=== PATIENT | male | born 1955 | race Caucasian/White ===

== ENCOUNTER 2017-05-22 08:37 | Emergency (ER) | payer OTHER ==
[2017-05-22] MEDS ORDERED: ONDANSETRON 4 MG/2 ML VIAL IVP STA (10:06)
[2017-05-22] MEDS ORDERED: HYDROmorphone 0.5 MG/0.5 ML SYRINGE IVP STA (10:06)
[2017-05-22] MEDS ORDERED: SODIUM CHLORIDE 0.9% 500 ML IV STA (10:06)
[2017-05-22] MEDS ORDERED: SODIUM CHLORIDE 0.9% 1,000 ML IV STA (10:06)
[2017-05-22 10:38] LABS: Basophils % (A) 1 %; Eosinophils # (A) 0.1 k/uL (0-0.7); Eosinophils % (A) 2 %; HCT 44.8 % (39.0-53.0); Lymphocytes # (A) 0.9 k/uL (1.0-4.8); Lymphocytes % (A) 16 %; MCH 29.9 pg (25.0-35.0); MCHC 33.5 g/dL (31.0-37.0); MCV 89.1 fL (80.0-100.0); Mean Platelet Volume 7.1; Monocytes # (A) 0.3 k/uL (0-1.0); Monocytes % (A) 5 %; Neutrophils # (A) 4.2 k/uL (1.3-7.7); Neutrophils % (A) 76 %; Platelet Count 204 k/uL (150-450); Poikilocytosis Slight; RBC 5.03 m/uL (4.30-5.90); WBC 5.5 k/uL (3.8-10.6)
--- NOTE | 2017-05-22 10:42 | CT ---
EXAMINATION TYPE: CT abdomen pelvis wo con DATE OF EXAM: 05/22/2017 COMPARISON: NONE INDICATION: Patient complains of left flank pain. DLP: 1074.1 mGycm, Automated exposure control for dose reduction was used. CONTRAST: None TECHNIQUE: Axial images were obtained from above the diaphragm to the pubic rami in the axial plane a t 5 mm thick sections. Reconstructed images are reviewed on the computer in the coronal plane. FINDINGS: Limited CT sections are obtained the lung bases. The lung bases are clear. CT ABDOMEN: Liver: Normal Spleen: Normal Pancreas: Normal Adrenal glands: The adrenal glands are normal. Gallbladder: Normal Kidneys: No masses are evident. No hydronephrosis is present. There is a 2.4 cm cyst measuring 6 [place] units on the anterior mid left kidney. Aorta: Normal Inferior vena cava: Normal. CT PELVIS: There is an anterior abdominal wall hernia containing mesenteric fat in the periumbilical region. The opening is 1.8 cm in width. Loops of bowel within the abdomen and pelvis are normal. There are loops of bowel which are incom pletely distended or lack oral contrast limiting their evaluation. Appendix: Normal as visualized. Urinary bladder: Normal. Genitourinary structures: Prostate is slightly prominent. Osseous structures: No suspicious lytic or sclerotic lesions. Small bone island is in the proximal ri ght femur. IMPRESSIONS: 1. Left renal cyst. 2. Periumbilical mesenteric fat containing hernia. 3. No renal or ureteral stones evident.
[2017-05-22 10:49] LABS: Appearance,Urine Clear (Clear); Bilirubin,Urine Negative (Negative); Blood,Urine Small (Negative); Color,Urine Light Yellow; Glucose,Urine (UA) 4+ (Negative); Ketones,Urine Negative (Negative); Leukocyte Esterase,Urine Negative (Negative); Mucus,Urine Rare /hpf; Nitrite,Urine Negative (Negative); PH, Urine 5.5 (5.0-8.0); Protein,Urine 2+ (Negative); RBC,Urine <1 /hpf (0-5); Specific Gravity,Urine 1.011 (1.001-1.035); Squamous Epithelial Cell,Urine <1 /hpf (0-4); Urobilinogen,Urine <2.0 mg/dL (<2.0); WBC,Urine <1 /hpf (0-5)
--- NOTE | 2017-05-22 10:49 | ED ---
General Adult HPI - General Chief complaint: Abdominal Pain Stated complaint: poss kidney stone, radiating from back down lft le Time Seen by Provider: 05/22/17 10:01 Source: patient Mode of arrival: ambulatory Limitations: no limitations - History of Present Illness Initial comments: This 61-year-old white male presents with a complaint of some left back pain. He states that this has been present for approximately 6 days. It is in his left lower back and seems to radiate down into his left proximal leg. He denies any injuries or overuse. He denies any previous similar incidents. He probably followed up with his primary doctor 2 days ago and they did an x-ray and thought that he may have a kidney stone. He has been taking Motrin 800 mg without any significant relief. He denies any frequency, urgency, dysuria, or hematuria. He denies any constipation, or diarrhea or vomiting. He has had occasional nausea when the pain is severe. He denies any fevers or chills. There is no bowel or bladder incontinence. No previous back problems or kidney stone history. No other complaints or modifying factors. He does relate that he has had back issues in the past and has had to see Dr. Hernandez for this. He also is scheduled for surgery on his right shoulder by Dr. Teran in the near future. The urinalysis does not show any evidence of infection. The laboratory shows an elevation of the blood sugar but he states that he did not take his insulin this morning because he did not eat. Overall, it is felt as though he likely does have a possible herniated disc in his lumbar spine. It is felt as though he should follow-up with his primary physician to schedule MRI scan. Is also felt that he may benefit from following up with Dr. Hernandez again. He is feeling much improved on recheck. Is felt as though he stable for discharge. He will be provided symptomatic control until he sees his physician. - Related Data Home Medications Medication Instructions Recorded Confirmed Insulin Glargine,Hum.rec.anlog 35 unit SQ DAILY 05/22/17 05/22/17 [Lantus Solostar] Trulicity(Unknown Dose) 1 dose SQ FR 05/22/17 05/22/17 Previous Rx's Medication Instructions Recorded Cyclobenzaprine [Flexeril] 10 mg PO TID PRN #20 tab 05/22/17 Hydrocodone/Acetaminophen [[place] 1 - 2 each PO Q4HR PRN #20 tab 05/22/17 5-325] predniSONE 20 mg PO BID #10 tab 05/22/17 Allergies Allergy/AdvReac Type Severity Reaction Status Date / Time No Known Allergies Allergy Verified 05/22/17 09:24 Review of Systems ROS Statement: Those systems with pertinent positive or pertinent negative responses have been documented in the HPI. ROS Other: All systems not noted in ROS Statement are negative. Past Medical History Past Medical History: Diabetes Mellitus History of Any Multi-Drug Resistant Organisms: None Reported Past Surgical History: Orthopedic Surgery Additional Past Surgical History / Comment(s): LEFT KNEE Past Psychological History: No Psychological Hx Reported Smoking Status: Former smoker Past Alcohol Use History: None Reported Past Drug Use History: None Reported General Exam - General Exam Comments Initial Comments: GENERAL: The patient is well nourished and well hydrated. VITAL SIGNS: Heart rate, blood pressure, respiratory rate reviewed as recorded in nurse's notes. EYES: Pupils are round and reactive. Extraocular movements are intact. No conjunctival / lid redness or swelling. ENT: No external evidence of injury, swelling, or ecchymosis. Airway is patent. Throat is clear. NECK: Nontender. No swelling or evidence of injury. No subcutaneous emphysema. Trachea is midline. No thyroid mass. HEART: Regular rate and rhythm. Good peripheral pulses. LUNGS/CHEST: Breath sounds clear and equal bilaterally. No rales, rhonchi, or wheezes. No ecchymosis, subcutaneous emphysema, or tenderness. ABDOMEN: Abdomen soft without tenderness. No palpable masses or organomegaly. No peritoneal signs. No abdominal wall swelling or ecchymosis. EXTREMITIES: No extremity tenderness. Normal muscle tone and function. There is tenderness into the left perilumbar musculature inferiorly. There is no tenderness over the kidney. NEUROLOGIC: Sensation is grossly intact. Cranial nerve exam reveals face is symmetrical, tongue is midline, speech is clear. SKIN: No abrasions or ecchymosis is noted. No induration or masses noted. PSYCHIATRIC: Alert and oriented. Appropriate behavior and judgment. Limitations: no limitations Course Vital Signs 05/22/17 09:06 Temperature 97.0 F L Pulse Rate 66 Respiratory 18 Rate Blood Pressure 175/107 O2 Sat by Pulse 97 Oximetry Medical Decision Making - Medical Decision Making The patient was seen and examined. All diagnostics were reviewed. The computed tomography scan of the abdomen and pelvis does show evidence of a left renal cyst but there is no evidence of nephrolithiasis. No other acute findings are noted. She has been taking 800 mg of Motrin for his pain. He apparently took 4 of these within an hour and a half at one time. He is extensively counseled regarding not overutilizing this medication and only taking it as prescribed. He understands that there are health risk for doing so. It is felt as though his back pain is more likely related to an intrinsic back problem. The possibility of a lumbar radiculopathy certainly is possible. It is felt that he should've close follow-up with his primary physician. He may need an MRI scan of his lumbar back as felt necessary per her primary care physician. He may need further physical therapy or specialty consultation. - Lab Data Result diagrams: 05/22/17 09:36 05/22/17 09:36 Lab Results 05/22/17 05/22/17 05/22/17 Range/Units 09:05 09:36 09:36 WBC 5.5 (3.8-10.6) k/uL RBC 5.03 (4.30-5.90) m/uL Hgb 15.0 (13.0-17.5) gm/dL Hct 44.8 (39.0-53.0) % MCV 89.1 (80.0-100.0) fL MCH 29.9 (25.0-35.0) pg MCHC 33.5 (31.0-37.0) g/dL RDW 14.0 (11.5-15.5) % Plt Count 204 (150-450) k/uL Neutrophils % 76 % Lymphocytes % 16 % Monocytes % 5 % Eosinophils % 2 % Basophils % 1 % Neutrophils # 4.2 (1.3-7.7) k/uL Lymphocytes # 0.9 L (1.0-4.8) k/uL Monocytes # 0.3 (0-1.0) k/uL Eosinophils # 0.1 (0-0.7) k/uL Basophils # 0.0 (0-0.2) k/uL Poikilocytosis Slight Sodium 139 (137-145) mmol/L Potassium 4.7 (3.5-5.1) mmol/L Chloride 103 (98-107) mmol/L Carbon Dioxide 23 (22-30) mmol/L Anion Gap 13 mmol/L BUN 23 H (9-20) mg/dL Creatinine 0.80 (0.66-1.25) mg/dL Est GFR (MDRD) Af Amer >60 (>60 ml/min/1.73 sqM) Est GFR (MDRD) Non-Af >60 (>60 ml/min/1.73 sqM) Glucose 268 H (74-99) mg/dL Calcium 9.5 (8.4-10.2) mg/dL Total Bilirubin 0.5 (0.2-1.3) mg/dL AST 26 (17-59) U/L ALT 39 (21-72) U/L Alkaline Phosphatase 102 (38-126) U/L Total Protein 7.5 (6.3-8.2) g/dL Albumin 4.2 (3.5-5.0) g/dL Urine Color Light Yellow Urine Appearance Clear (Clear) Urine pH 5.5 (5.0-8.0) Ur Specific [place] 1.011 (1.001-1.035) Urine Protein 2+ H (Negative) Urine Glucose (UA) 4+ H (Negative) Urine Ketones Negative (Negative) Urine Blood Small H (Negative) Urine Nitrite Negative (Negative) Urine Bilirubin Negative (Negative) Urine Urobilinogen <2.0 (<2.0) mg/dL Ur Leukocyte Esterase Negative (Negative) Urine RBC <1 (0-5) /hpf Urine WBC <1 (0-5) /hpf Ur Squamous Epith Cells <1 (0-4) /hpf Urine Mucus Rare H (None) /hpf Disposition Clinical Impression: Low back pain, Hypertension, Lumbar radiculopathy, Hyperglycemia, Diabetes Disposition: HOME SELF-CARE Condition: Good Instructions: Lumbar Radiculopathy (ED), Acute Low Back Pain (ED) Prescriptions: Cyclobenzaprine [Flexeril] 10 mg PO TID PRN #20 tab PRN Reason: Pain Hydrocodone/Acetaminophen [[place] 5-325] 1 - 2 each PO Q4HR PRN #20 tab PRN Reason: Pain predniSONE 20 mg PO BID #10 tab Referrals: Jatinder Hernández MD [Primary Care Provider] - 1-2 days Kristofer Hernandez DO [Doctor of Osteopathic Medicine] - As Soon As Possible Time of Disposition: 11:17
[2017-05-22 10:52] LABS: ALT 39 U/L (21-72); AST 26 U/L (17-59); Albumin 4.2 g/dL (3.5-5.0); Alkaline Phosphatase 102 U/L (38-126); Anion Gap 13 mmol/L; Blood Urea Nitrogen 23 mg/dL (9-20); Calcium 9.5 mg/dL (8.4-10.2); Carbon Dioxide 23 mmol/L (22-30); Chloride 103 mmol/L (98-107); Glucose 268 mg/dL (74-99); Potassium 4.7 mmol/L (3.5-5.1); Sodium 139 mmol/L (137-145); Total Bilirubin 0.5 mg/dL (0.2-1.3); Total Protein 7.5 g/dL (6.3-8.2)
[2017-05-22 11:39] VITALS: BP 167/89; PULSE 71; RESP 16; TEMP 97.5
== END 2017-05-22 11:38 | disposition home or self-care (01) ==
LOC: EC 08:37
DX: M54.16 Radiculopathy, lumbar region (principal); E11.65 Type 2 diabetes mellitus with hyperglycemia; I10 Essential (primary) hypertension; N28.1 Cyst of kidney, acquired; R11.0 Nausea; Z87.891 Personal history of nicotine dependence; Z79.4 Long term (current) use of insulin
CPT/HCPCS: 99284; 96374; 96375; 96361; 36415; 80053; 85025; 81001; 74176; J2405; J1170

== ENCOUNTER 2017-05-26 12:29 | Emergency (ER) | payer OTHER ==
[2017-05-26] MEDS ORDERED: SODIUM CHLORIDE 0.9% 1,000 ML IV STA ×2 (13:26)
--- NOTE | 2017-05-26 14:15 | ED ---
General Adult HPI - General Chief complaint: Recheck/Abnormal Lab/Rx Stated complaint: Abnormal EKG-Sent by Time Seen by Provider: 05/26/17 12:57 Source: patient Mode of arrival: wheelchair Limitations: no limitations - History of Present Illness Initial comments: 61 years old male he was quite lightheaded this morning, he was diaphoretic he did go see his doctor today he had EKG done and Dr. Mishra's office Dr. Mishra felt that he needs to be evaluated in the ER. In ER he denies any headaches no blurred vision no slurred speech no chest pain or shortness of breath no abdominal pain no frequency urgency dysuria no symptoms of TIA or CVA - Related Data Home Medications Medication Instructions Recorded Confirmed Aspirin/Acetaminophen/Caffeine 1 - 3 tab PO Q6H PRN 05/26/17 05/26/17 [Excedrin Extra Strength Caplet] Dulaglutide [Trulicity] 1.5 mg SQ FR 05/26/17 05/26/17 Hydrocodone/Acetaminophen [[place] 1 - 2 tab PO Q4HR PRN 05/26/17 05/26/17 5-325] Insulin Degludec [Tresiba 35 unit SQ DAILY 05/26/17 05/26/17 Flextouch U-100] Previous Rx's Medication Instructions Recorded Cyclobenzaprine [Flexeril] 10 mg PO TID PRN #20 tab 05/22/17 Sulfamethox-Tmp 800-160Mg [Bactrim 1 tab PO Q12HR #20 tab 05/26/17 DS 800-160 mg] traMADol HCl [Ultram] 100 mg PO Q6HR PRN #20 tab 05/26/17 Allergies Allergy/AdvReac Type Severity Reaction Status Date / Time insulin lispro [From Humalog] AdvReac Diarrhea Verified 05/26/17 13:07 Review of Systems ROS Statement: Those systems with pertinent positive or pertinent negative responses have been documented in the HPI. ROS Other: All systems not noted in ROS Statement are negative. Past Medical History Past Medical History: Diabetes Mellitus History of Any Multi-Drug Resistant Organisms: None Reported Past Surgical History: Orthopedic Surgery Additional Past Surgical History / Comment(s): LEFT KNEE Past Psychological History: No Psychological Hx Reported Smoking Status: Former smoker Past Alcohol Use History: None Reported Past Drug Use History: None Reported General Exam - General Exam Comments Initial Comments: General: The patient is awake and alert, in no distress, and does not appear acutely ill. GCS is 15 Skin: Skin is warm and dry and no rashes or lesions are noted. Eye: Pupils are equal, round and reactive to light, extra-ocular movements are intact; there is normal conjunctiva bilaterally. Ears, nose, mouth and throat: There are moist mucous membranes and no oral lesions. Neck: The neck is supple, there is no tenderness or JVD. Cardiovascular: There is a regular rate and rhythm. No murmur, rub or gallop is appreciated. Respiratory: To auscultation bilateral, no wheezing no rhonchi no distress respiratory ceja noticed Gastrointestinal: Soft, non-distended, non-tender abdomen without masses or organomegaly noted. There is no rebound or guarding present. Bowel sounds are unremarkable. Back: There is no tenderness to palpation in the midline. There is no obvious deformity. Musculoskeletal: Normal ROM, no tenderness, There is no pedal edema. There is no calf tenderness or swelling. No cords were appreciated. Neurological: CN II-XII intact, Cranial nerves III through XII are intact. There are no obvious motor or sensory deficits. Coordination appears grossly intact. Speech is normal. Psychiatric: Cooperative, appropriate mood & affect, normal judgment. Limitations: no limitations Course Vital Signs 05/26/17 05/26/17 12:31 14:05 Temperature 97.8 F Pulse Rate 112 H 98 Respiratory 20 18 Rate Blood Pressure 138/98 164/102 O2 Sat by Pulse 97 94 L Oximetry She is reassessed at term 1515, CBC, troponin, compressive metabolic panel are normal except sugar is slightly high 197 chest x-ray didn't show any signs of infection, considering his diaphoresis early-morning hours concerned about his heart though he has no chest pain then second differential diagnosis is any early onset of sepsis so for white count is fine he is afebrile urinalysis is pending he would need a course of antibiotics for his otitis media with some effusion behind the tympanic membranes. Will also check orthostatics and walking around see how he feels EKG Findings - EKG Comments: EKG Findings:: G is sinus tachycardia ventricular rate is 101 IA interval is 148 QRS duration is 86 QT/QTc is 340/[address] segment elevation in leads 2 some flattening of the T-wave in lead aVL lead V1 and V2 it seems like maybe he is a half a millimeter of ST elevation but then he could well be an artifact no other changes noticed any other leads noticed slight ST segment depression in lead V6 Medical Decision Making - Lab Data Result diagrams: 05/26/17 14:10 05/26/17 14:10 Lab Results 05/26/17 05/26/17 05/26/17 Range/Units 14:10 14:10 14:10 WBC 7.6 (3.8-10.6) k/uL RBC 5.36 (4.30-5.90) m/uL Hgb 16.2 (13.0-17.5) gm/dL Hct 47.9 (39.0-53.0) % MCV 89.2 (80.0-100.0) fL MCH 30.1 (25.0-35.0) pg MCHC 33.8 (31.0-37.0) g/dL RDW 13.9 (11.5-15.5) % Plt Count 238 (150-450) k/uL Neutrophils % 73 % Lymphocytes % 17 % Monocytes % 7 % Eosinophils % 1 % Basophils % 0 % Neutrophils # 5.6 (1.3-7.7) k/uL Lymphocytes # 1.3 (1.0-4.8) k/uL Monocytes # 0.5 (0-1.0) k/uL Eosinophils # 0.1 (0-0.7) k/uL Basophils # 0.0 (0-0.2) k/uL PT (9.0-12.0) sec INR (<1.2) APTT (22.0-30.0) sec Sodium 138 (137-145) mmol/L Potassium 4.5 (3.5-5.1) mmol/L Chloride 104 (98-107) mmol/L Carbon Dioxide 23 (22-30) mmol/L Anion Gap 11 mmol/L BUN 25 H (9-20) mg/dL Creatinine 0.90 (0.66-1.25) mg/dL Est GFR (MDRD) Af Amer >60 (>60 ml/min/1.73 sqM) Est GFR (MDRD) Non-Af >60 (>60 ml/min/1.73 sqM) Glucose 197 H (74-99) mg/dL Calcium 10.2 (8.4-10.2) mg/dL Magnesium 1.9 (1.6-2.3) mg/dL Total Bilirubin 0.5 (0.2-1.3) mg/dL AST 19 (17-59) U/L ALT 27 (21-72) U/L Alkaline Phosphatase 98 (38-126) U/L Total Creatine Kinase 70 (55-170) U/L CK-MB (CK-2) 1.1 (0.0-2.4) ng/mL CK-MB (CK-2) Rel Index 1.6 Troponin I <0.012 (0.000-0.034) ng/mL Total Protein 7.6 (6.3-8.2) g/dL Albumin 4.2 (3.5-5.0) g/dL Urine Color Urine Appearance (Clear) Urine pH (5.0-8.0) Ur Specific [place] (1.001-1.035) Urine Protein (Negative) Urine Glucose (UA) (Negative) Urine Ketones (Negative) Urine Blood (Negative) Urine Nitrite (Negative) Urine Bilirubin (Negative) Urine Urobilinogen (<2.0) mg/dL Ur Leukocyte Esterase (Negative) Urine RBC (0-5) /hpf Urine WBC (0-5) /hpf Urine Mucus (None) /hpf 05/26/17 05/26/17 Range/Units 14:10 15:25 WBC (3.8-10.6) k/uL RBC (4.30-5.90) m/uL Hgb (13.0-17.5) gm/dL Hct (39.0-53.0) % MCV (80.0-100.0) fL MCH (25.0-35.0) pg MCHC (31.0-37.0) g/dL RDW (11.5-15.5) % Plt Count (150-450) k/uL Neutrophils % % Lymphocytes % % Monocytes % % Eosinophils % % Basophils % % Neutrophils # (1.3-7.7) k/uL Lymphocytes # (1.0-4.8) k/uL Monocytes # (0-1.0) k/uL Eosinophils # (0-0.7) k/uL Basophils # (0-0.2) k/uL PT 10.0 (9.0-12.0) sec INR 1.0 (<1.2) APTT 23.9 (22.0-30.0) sec Sodium (137-145) mmol/L Potassium (3.5-5.1) mmol/L Chloride (98-107) mmol/L Carbon Dioxide (22-30) mmol/L Anion Gap mmol/L BUN (9-20) mg/dL Creatinine (0.66-1.25) mg/dL Est GFR (MDRD) Af Amer (>60 ml/min/1.73 sqM) Est GFR (MDRD) Non-Af (>60 ml/min/1.73 sqM) Glucose (74-99) mg/dL Calcium (8.4-10.2) mg/dL Magnesium (1.6-2.3) mg/dL Total Bilirubin (0.2-1.3) mg/dL AST (17-59) U/L ALT (21-72) U/L Alkaline Phosphatase (38-126) U/L Total Creatine Kinase (55-170) U/L CK-MB (CK-2) (0.0-2.4) ng/mL CK-MB (CK-2) Rel Index Troponin I (0.000-0.034) ng/mL Total Protein (6.3-8.2) g/dL Albumin (3.5-5.0) g/dL Urine Color Yellow Urine Appearance Clear (Clear) Urine pH 5.5 (5.0-8.0) Ur Specific [place] 1.016 (1.001-1.035) Urine Protein 2+ H (Negative) Urine Glucose (UA) 3+ H (Negative) Urine Ketones Negative (Negative) Urine Blood Small H (Negative) Urine Nitrite Negative (Negative) Urine Bilirubin Negative (Negative) Urine Urobilinogen <2.0 (<2.0) mg/dL Ur Leukocyte Esterase Negative (Negative) Urine RBC 3 (0-5) /hpf Urine WBC 1 (0-5) /hpf Urine Mucus Rare H (None) /hpf Disposition Clinical Impression: Generalized weakness, Lightheadedness, Otitis media, UTI (urinary tract infection) Disposition: HOME SELF-CARE Condition: Good Instructions: Dizziness (ED) Prescriptions: Sulfamethox-Tmp 800-160Mg [Bactrim DS 800-160 mg] 1 tab PO Q12HR #20 tab traMADol HCl [Ultram] 100 mg PO Q6HR PRN #20 tab PRN Reason: Pain Referrals: Jatinder Hernández MD [Primary Care Provider] - 1-2 days
[2017-05-26 14:27] LABS: Basophils % (A) 0 %; Eosinophils # (A) 0.1 k/uL (0-0.7); Eosinophils % (A) 1 %; HCT 47.9 % (39.0-53.0); HGB 16.2 gm/dL (13.0-17.5); Lymphocytes # (A) 1.3 k/uL (1.0-4.8); Lymphocytes % (A) 17 %; MCH 30.1 pg (25.0-35.0); MCHC 33.8 g/dL (31.0-37.0); MCV 89.2 fL (80.0-100.0); Mean Platelet Volume 7.2; Monocytes # (A) 0.5 k/uL (0-1.0); Monocytes % (A) 7 %; Neutrophils # (A) 5.6 k/uL (1.3-7.7); Neutrophils % (A) 73 %; Platelet Count 238 k/uL (150-450); RBC 5.36 m/uL (4.30-5.90); RDW 13.9 % (11.5-15.5); WBC 7.6 k/uL (3.8-10.6)
[2017-05-26 14:33] LABS: Partial Thromboplastin Time 23.9 sec (22.0-30.0)
--- NOTE | 2017-05-26 14:38 | XR ---
EXAMINATION TYPE: XR chest 2V DATE OF EXAM: 05/26/2017 COMPARISON: NONE INDICATION: Chest pain TECHNIQUE: Frontal and lateral views of the chest are obtained. FINDINGS: The heart size is normal. The pulmonary vasculature is normal. The lungs are clear. IMPRESSION: 1. No acute pulmonary process.
[2017-05-26 14:43] LABS: ALT 27 U/L (21-72); AST 19 U/L (17-59); Albumin 4.2 g/dL (3.5-5.0); Alkaline Phosphatase 98 U/L (38-126); Anion Gap 11 mmol/L; Blood Urea Nitrogen 25 mg/dL (9-20); Calcium 10.2 mg/dL (8.4-10.2); Carbon Dioxide 23 mmol/L (22-30); Chloride 104 mmol/L (98-107); Glucose 197 mg/dL (74-99); Magnesium 1.9 mg/dL (1.6-2.3); Potassium 4.5 mmol/L (3.5-5.1); Sodium 138 mmol/L (137-145); Total Bilirubin 0.5 mg/dL (0.2-1.3); Total Protein 7.6 g/dL (6.3-8.2)
[2017-05-26 14:52] LABS: Creatine Kinase 70 U/L (55-170)
[2017-05-26 15:06] LABS: Creatine Kinase MB 1.1 ng/mL (0.0-2.4); Troponin I <0.012 ng/mL (0.000-0.034)
[2017-05-26 15:48] LABS: Appearance,Urine Clear (Clear); Bilirubin,Urine Negative (Negative); Blood,Urine Small (Negative); Color,Urine Yellow; Glucose,Urine (UA) 3+ (Negative); Ketones,Urine Negative (Negative); Leukocyte Esterase,Urine Negative (Negative); Mucus,Urine Rare /hpf; Nitrite,Urine Negative (Negative); PH, Urine 5.5 (5.0-8.0); Protein,Urine 2+ (Negative); RBC,Urine 3 /hpf (0-5); Specific Gravity,Urine 1.016 (1.001-1.035); Urobilinogen,Urine <2.0 mg/dL (<2.0); WBC,Urine 1 /hpf (0-5)
[2017-05-26 16:35] VITALS: BP 143/96; PULSE 94; RESP 16; TEMP 97.3
== END 2017-05-26 16:56 | disposition home or self-care (01) ==
LOC: EC 12:29
DX: R42 Dizziness and giddiness (principal); R53.1 Weakness; N39.0 Urinary tract infection, site not specified; H66.90 Otitis media, unspecified, unspecified ear; E11.9 Type 2 diabetes mellitus without complications; Z87.891 Personal history of nicotine dependence; Z79.4 Long term (current) use of insulin; Z88.8 Allergy status to other drugs, medicaments and biological substances
CPT/HCPCS: 36415; 71046; 80053; 81001; 82550; 82553; 83735; 84484; 85025; 85610; 85730; 87040; 87086; 93005; 96360; 96361; 99285

== ENCOUNTER 2017-05-30 12:29 | Emergency (ER) | payer OTHER ==
[2017-05-30 13:01] VITALS: TEMP 98.2
[2017-05-30] MEDS ORDERED: RX INFO: IV CONTRAST WAS GIVEN 1 EACH MISC MISCELLANE PRN ×2 (14:16→14:45)
--- NOTE | 2017-05-30 14:18 | ED ---
Recheck HPI - General Chief Complaint: Recheck/Abnormal Lab/Rx Stated Complaint: Leg & Back Pain, numbness in knee Time Seen by Provider: 05/30/17 13:04 Source: patient, family, RN notes reviewed, old records reviewed Mode of arrival: wheelchair Limitations: physical limitation - History of Present Illness Initial Comments: This patient is a 61-year-old male presents to the emergency department for reevaluation. Your ports it for the past two weeks he's been having severe pain in his left leg. He states that it seems to be worse at night. Went to the ED and ruled out kidney stones. He was evaluated the second time from PCP to ED for rulling out an abnormal EKG and was had no evidence of any cardiac issues. Primary care provider three times and it had physical therapy, and reports pain is worse since physical therapy. He states that he feels like his left leg is cooler than the right and that occasinally when he walks it will give out. Sylwia reports he has numbness sensation over the upper thigh and extends to medial knee. - Related Data Home Medications Medication Instructions Recorded Confirmed Aspirin/Acetaminophen/Caffeine 1 - 3 tab PO Q6H PRN 05/26/17 05/30/17 [Excedrin Extra Strength Caplet] Dulaglutide [Trulicity] 1.5 mg SQ FR 05/26/17 05/30/17 Insulin Degludec [Tresiba 35 unit SQ DAILY 05/26/17 05/30/17 Flextouch U-100] Previous Rx's Medication Instructions Recorded Sulfamethox-Tmp 800-160Mg [Bactrim 1 tab PO Q12HR #20 tab 05/26/17 DS 800-160 mg] Dexamethasone 0.75 mg PO DAILY #12 tab 05/30/17 Allergies Allergy/AdvReac Type Severity Reaction Status Date / Time insulin lispro [From Humalog] AdvReac Diarrhea Verified 05/30/17 13:09 Review of Systems ROS Statement: Those systems with pertinent positive or pertinent negative responses have been documented in the HPI. ROS Other: All systems not noted in ROS Statement are negative. Constitutional: Denies: fever, chills Eyes: Denies: eye pain ENT: Denies: ear pain Respiratory: Denies: cough, dyspnea Cardiovascular: Denies: chest pain Endocrine: Denies: fatigue Gastrointestinal: Denies: as per HPI, abdominal pain, nausea Skin: Denies: lesions Neurological: Denies: weakness Psychiatric: Denies: depression Hematological/Lymphatic: Denies: easy bleeding Past Medical History Past Medical History: Diabetes Mellitus History of Any Multi-Drug Resistant Organisms: None Reported Past Surgical History: Orthopedic Surgery Additional Past Surgical History / Comment(s): LEFT KNEE Past Psychological History: No Psychological Hx Reported Smoking Status: Former smoker Past Alcohol Use History: None Reported Past Drug Use History: None Reported General Exam - General Exam Comments Initial Comments: Well appearing 61-year-old male. No distress. Limitations: physical limitation General appearance: alert, in no apparent distress Head exam: Present: atraumatic, normocephalic, normal inspection Eye exam: Present: normal appearance, PERRL, EOMI. Absent: scleral icterus, conjunctival injection, periorbital swelling ENT exam: Present: normal exam, mucous membranes moist Neck exam: Present: normal inspection. Absent: tenderness, meningismus, lymphadenopathy Respiratory exam: Present: normal lung sounds bilaterally. Absent: respiratory distress, wheezes, rales, rhonchi, stridor Cardiovascular Exam: Present: regular rate, normal rhythm, normal heart sounds. Absent: systolic murmur, diastolic murmur, rubs, gallop, clicks Left Upper Leg exam: Present: normal inspection, full ROM, tenderness (Patient reports tenderness over sartiorus muscle) Knee exam: Present: normal inspection, full ROM Lower Leg exam: Present: normal inspection, full ROM Ankle exam: Present: normal inspection, full ROM Neurovascular tendon exam: Present: no vascular compromise Gait: observed and normal Back exam: Present: normal inspection Neurological exam: Present: alert, oriented X3, CN II-XII intact Course Vital Signs 05/30/17 05/30/17 05/30/17 12:55 16:31 17:28 Temperature 98.2 F Pulse Rate 118 H 106 H 105 H Respiratory 17 18 18 Rate Blood Pressure 156/104 154/95 150/103 O2 Sat by Pulse 98 96 96 Oximetry Medical Decision Making - Medical Decision Making This patient is a 61-year-old male presents today for cheap complaint of left leg pain. Multiple times. The pain originates from his back and upper 52 with medial knee. It runs in the direction of the sartorius muscle. He has a normal pulse possibly diminished on the dorsalis pedis. Patient underwent ultrasound which is Tiff for DVT. Patient also had a CT angiogram with run off, no All of arterial occlusion. X-rays of the hip and back showing no acute abnormality's. Patient informed of results. Discussed that his symptoms sound similiar to Restless leg syndrome and he may have a strain of sartiorius muscle. He appeared in no pain while evaluating patient and he was noted to ambulate to and from bathroom without difficulty. Patient has an appt tomorrow with neurology. discussed follow up and take at home pain medication. Return parameters discussed. - Lab Data Result diagrams: 05/30/17 14:50 05/30/17 14:50 Lab Results 05/30/17 05/30/17 Range/Units 14:50 14:50 WBC 7.1 (3.8-10.6) k/uL RBC 5.44 (4.30-5.90) m/uL Hgb 16.0 (13.0-17.5) gm/dL Hct 47.6 (39.0-53.0) % MCV 87.6 (80.0-100.0) fL MCH 29.5 (25.0-35.0) pg MCHC 33.6 (31.0-37.0) g/dL RDW 14.0 (11.5-15.5) % Plt Count 240 (150-450) k/uL Neutrophils % 73 % Lymphocytes % 18 % Monocytes % 6 % Eosinophils % 2 % Basophils % 0 % Neutrophils # 5.2 (1.3-7.7) k/uL Lymphocytes # 1.3 (1.0-4.8) k/uL Monocytes # 0.4 (0-1.0) k/uL Eosinophils # 0.1 (0-0.7) k/uL Basophils # 0.0 (0-0.2) k/uL Sodium 136 L (137-145) mmol/L Potassium 5.1 (3.5-5.1) mmol/L Chloride 102 (98-107) mmol/L Carbon Dioxide 20 L (22-30) mmol/L Anion Gap 14 mmol/L BUN 26 H (9-20) mg/dL Creatinine 1.08 (0.66-1.25) mg/dL Est GFR (MDRD) Af Amer >60 (>60 ml/min/1.73 sqM) Est GFR (MDRD) Non-Af >60 (>60 ml/min/1.73 sqM) Glucose 363 H (74-99) mg/dL Calcium 10.0 (8.4-10.2) mg/dL - Radiology Data Radiology results: report reviewed Lumbar spine x-ray shows no acute fracture dislocation. No significant change from prior x-ray. No acute fracture dislocation of the left pelvis or hip. Doppler ultrasound is Negative for DVT in the left leg. CT angio with run off shows Some atherosclertoic change bilateral lower extremities below knees, No hemodynamically significant stenosis in pelvis or left slower extremity to account for patient symptoms. Disposition Clinical Impression: Left leg pain, Low back pain, Neuropathy Disposition: HOME SELF-CARE Condition: Good Instructions: Lumbar Radiculopathy (ED) Additional Instructions: Patient can continue to take at home pain medication. Return to emergency department if any alarming signs or symptoms occur. Prescriptions: Dexamethasone 0.75 mg PO DAILY #12 tab Referrals: Jatinder Hernández MD [Primary Care Provider] - 1-2 days Time of Disposition: 16:56
--- NOTE | 2017-05-30 14:52 | US ---
EXAMINATION TYPE: US venous doppler duplex LE LT DATE OF EXAM: 05/30/2017 2:42 PM COMPARISON: NONE CLINICAL HISTORY: Pain. SIDE PERFORMED: Left TECHNIQUE: The lower extremity deep venous system is examined utilizing real time linear array sonog jarek with graded compression, doppler sonography and color-flow sonography. VESSELS IMAGED: External Iliac Vein (EIV) Common Femoral Vein Deep Femoral Vein Greater Saphenous Vein * Femoral Vein Popliteal Vein Small Saphenous Vein * Proximal Calf Veins (* superficial vessels) At proximal FV is a duplicate artery and a small caliber v., but no evidence of DVT. Left Leg: Negative for DVT Grayscale, color doppler, spectral doppler imaging performed of the deep veins of the left lower extr emity. There is normal flow, compressibility, vascular waveforms. IMPRESSION: No evidence of acute DVT in the left lower extremity.
[2017-05-30 14:58] LABS: Basophils % (A) 0 %; Eosinophils # (A) 0.1 k/uL (0-0.7); Eosinophils % (A) 2 %; HCT 47.6 % (39.0-53.0); Lymphocytes # (A) 1.3 k/uL (1.0-4.8); Lymphocytes % (A) 18 %; MCH 29.5 pg (25.0-35.0); MCHC 33.6 g/dL (31.0-37.0); MCV 87.6 fL (80.0-100.0); Mean Platelet Volume 7.3; Monocytes # (A) 0.4 k/uL (0-1.0); Monocytes % (A) 6 %; Neutrophils # (A) 5.2 k/uL (1.3-7.7); Neutrophils % (A) 73 %; Platelet Count 240 k/uL (150-450); RBC 5.44 m/uL (4.30-5.90); WBC 7.1 k/uL (3.8-10.6)
[2017-05-30 15:17] LABS: Anion Gap 14 mmol/L; Blood Urea Nitrogen 26 mg/dL (9-20); Carbon Dioxide 20 mmol/L (22-30); Chloride 102 mmol/L (98-107); Glucose 363 mg/dL (74-99); Potassium 5.1 mmol/L (3.5-5.1); Sodium 136 mmol/L (137-145)
--- NOTE | 2017-05-30 15:23 | XR ---
EXAMINATION TYPE: XR Hip LT and AP Pelvis DATE OF EXAM: 05/30/2017 COMPARISON: NONE HISTORY: Pelvic pain down left groin. TECHNIQUE: A single AP view of the pelvis is obtained. Two views of the left hip are obtained. FINDINGS: There is no acute fracture/dislocation evident in the pelvis. The sacroiliac joints appea r symmetric and unremarkable. There is mild acetabular spurring in both hips. The overlying soft tis eliel appears unremarkable. Two views of left hip show no acute fracture or dislocation. No focal lytic or sclerotic lesion seen in the proximal left femur. The overlying soft tissue is unremarkable. IMPRESSION: There is no acute fracture or dislocation in the pelvis or left hip.
--- NOTE | 2017-05-30 15:25 | XR ---
EXAMINATION TYPE: XR lumbar spine 2 or 3V DATE OF EXAM: 05/30/2017 CLINICAL HISTORY: Low back pain down left leg. TECHNIQUE: Frontal and lateral images of the lumbar spine are obtained. COMPARISON: Lumbar spine x-ray December 19, 2014. CT abdomen and pelvis May 22, 2017 FINDINGS: There are 5 lumbar type vertebral bodies redemonstrated The lumbar spine redemonstrate sat isfactory alignment without evidence of acute fracture or dislocation. Mild disc space narrowing L5-S 1 level is redemonstrated. Vertebral body heights and disk space heights otherwise remain within norm al limits. Mild multilevel anterior spurring is again seen most prominent upper lumbar levels. The o verlying soft tissue appears unremarkable. IMPRESSION: No acute fracture or dislocation is seen in the lumbar spine. No significant change from prior x-ray.
[2017-05-30] MEDS ORDERED: SODIUM CHLORIDE 0.9% 1,000 ML IV ONE (15:47)
--- NOTE | 2017-05-30 16:17 | CT ---
EXAMINATION TYPE: CT angio abd aorta wo/w con DATE OF EXAM: 05/30/2017 COMPARISON: CT abdomen and pelvis from May 22, 2017 HISTORY: Left leg pain from hip down to below knee. CT DLP: 1639.8 mGycm, Automated Exposure Control for Dose Reduction was Utilized. CONTRAST: CTA scan of the lower abdomen and pelvis with lower extremity runoff is performed without oral and wi thout and with IV Contrast, patient injected with 125 mL of Omnipaque 350. Three-D reconstructed imag es are created on independent workstation and reviewed FINDINGS: VASCULAR: Imaging begins distal to renal arteries. There is patent ANN identified. There is no significant plaq ue or stenosis in visualized distal abdominal aorta. Bilateral common iliac artery show minimal calci fied plaque on the left distally without significant stenosis. There are patent internal iliac arteri es bilaterally without significant plaque or stenosis. There are patent external iliac arteries bilat erally without significant plaque or stenosis. There is patent bilateral common femoral arteries without significant plaque or stenosis. There is pa tent superficial and deep femoral arteries without significant plaque or stenosis bilaterally. There is poor bolus noted at level of popliteal arteries bilaterally. Evaluation distal to knees is thus ramsey boptimal repeat imaging was performed. No significant plaque or stenosis is seen up to the level in e ither lower extremity. No significant plaque or stenosis is seen in popliteal arteries bilaterally. There is satisfactory bi furcation on the right and subsequent bifurcation of tibial peroneal trunk. There is good flow railroad surveyor ior tibial artery becoming dorsalis pedis on the right. There is poor flow in the anterior tibial art kendy which is smaller caliber. Similar findings are seen in the left lower extremity with good bifurca tion and subsequent bifurcation of tibial peroneal trunk. There is good flow with some calcified plaq ue along course of the posterior tibial artery which is patent to dorsalis pedis. No significant soft tissue swelling is seen. BOWEL: Sigmoid colonic diverticulosis is redemonstrated. PROSTATE/SEMINAL VESICLES: No gross abnormality seen. LYMPH NODES: No greater than 1cm abdominal or pelvic lymph nodes are appreciated. OSSEOUS STRUCTURES: No significant abnormality is seen. OTHER: Incidental simple appearing 1.1 cm cyst lower pole level left kidney. There is moderate to lar ge sized fat-containing paraumbilical hernia. EXTREMITIES: Symmetric mild to moderate degenerative changes in both knees. Incidental small sized ri ght-sided popliteal cyst axial image 25 series 6. IMPRESSION: Some atherosclerotic change bilateral lower extremities below knees. No suspicious hemody namically significant stenosis in pelvis or left lower extremity to account for patient's symptoms.
[2017-05-30 16:32] VITALS: RESP 18
[2017-05-30] MEDS ORDERED: methylPREDNISolone SOD SUCCI 125 MG/2 ML VIAL IV STA (16:55)
[2017-05-30 17:32] VITALS: BP 150/103; PULSE 105
--- NOTE | 2017-06-03 02:23 | CDI ---
Documentation Clarification OP Dear REHANA Argueta: Please do addendum to ED report for HPI , Physical exam and MDM. Thank you, Ilene Reddy Engine Generator Assembler If you have any question, Please contact manager of learning at [phone] [facility]
== END 2017-05-30 17:36 | disposition home or self-care (01) ==
LOC: EC 12:29
DX: G62.9 Polyneuropathy, unspecified (principal); M79.605 Pain in left leg; M54.5 Low back pain; E11.9 Type 2 diabetes mellitus without complications; Z87.891 Personal history of nicotine dependence; Z79.4 Long term (current) use of insulin; Z88.8 Allergy status to other drugs, medicaments and biological substances
CPT/HCPCS: 36415; 80048; 85025; 72100; 73502; 93971; 75635; 99285; 96374; 96361; J2930; Q9967

== ENCOUNTER → 2017-06-28 | Outpatient (CLI) | payer OTHER ==
--- NOTE | 2017-06-28 11:53 | MR ---
EXAMINATION TYPE: MR lumbar spine wo con DATE OF EXAM: 06/28/2017 COMPARISON: NONE HISTORY: Back pain TECHNIQUE: T1 and T2 axial and sagittal images of the lumbar spine are submitted. FINDINGS: There is no abnormal signal seen within the visualized spinal cord or paraspinal soft tissu es. At T12-L1 there is minimal right paracentral disc bulging but no spinal cord contact or foraminal enc roachment. Mild hypertrophic change of facet joints. At L1-2 there is no disc herniation or canal stenosis. No foraminal encroachment. At L2-3 there is no disc herniation.. No foraminal encroachment. Vertebral body hemangioma of L2 note d. No Canal stenosis. At L3-4 there is degenerative disc disease with circumferential disc bulging and hypertrophy of the f acet joints. Neural foramina remain patent. Borderline canal stenosis. At L4-5 there is degenerative disc disease and hypertrophy ligamentum flavum. Mild broad-based centra l disc bulging with borderline to mild canal stenosis. Disc bulging is greater laterally to the right moderate right-sided foraminal encroachment. Lateral disc protrusion not excluded. At L5-S1 there is mild degenerative disc disease. Right paracentral and lateral disc bulging with mil d right foraminal encroachment. Mild hypertrophy of the facets joints. No Canal stenosis. IMPRESSION: 1. At L4-5 there is degenerative disc disease and hypertrophy ligamentum flavum. Mild broad-based yolanda tral disc bulging with borderline to mild canal stenosis. Disc bulging is greater laterally to the ri ght moderate right-sided foraminal encroachment. Lateral disc protrusion not excluded. 2. Mild degenerative disc disease L5-S1 with right paracentral and lateral disc bulging and mild righ t foraminal encroachment. No Canal stenosis. 3. Tiny right paracentral disc bulge T12-L1. 4. Mild degenerative disc disease L3-4 with circumferential disc bulging but no foraminal encroachmen t. Borderline canal stenosis.
== END | disposition home or self-care (01) ==
LOC: RADMRIMAIN 10:13
PROVIDERS: ATTEND Physical Medicine & Rehabilitation
DX: M48.061 Spinal stenosis, lumbar region without neurogenic claudication (principal); M51.25 Other intervertebral disc displacement, thoracolumbar region; M51.37 Other intervertebral disc degeneration, lumbosacral region; M24.28 Disorder of ligament, vertebrae; M47.817 Spondylosis without myelopathy or radiculopathy, lumbosacral region
CPT/HCPCS: 72148

== ENCOUNTER 2017-08-24 20:45 | Emergency (ER) | payer OTHER ==
[2017-08-24] MEDS ORDERED: RX INFO: IV CONTRAST WAS GIVEN 1 EACH MISC MISCELLANE PRN (20:47)
[2017-08-24 21:02] LABS: Glucose,Whole Blood 188 mg/dL (75-99)
--- NOTE | 2017-08-24 21:04 | CT ---
EXAMINATION TYPE: CT brain wo con for TPA DATE OF EXAM: 08/24/2017 COMPARISON: NONE INDICATION: Left sided weakness, slurred speech DLP: 1011.2 mGycm, Automated exposure control for dose reduction was used. CONTRAST: None CT of the brain is performed utilizing 3 mm thick sections through the posterior fossa and 3 mm thick sections through the remaining calvarium. Study is performed within 24 hours of arrival to the hosp ital. No abnormal hyperdensity is present to suggest an acute intracranial hemorrhage. No mass lesion is evident. No acute infarcts are evident. Ventricles and sulci are appropriate for the patient age. Paranasal sinuses and mastoid air cells within the [id number] are clear. IMPRESSIONS: 1. Normal CT Brain
[2017-08-24 21:11] VITALS: TEMP 98.7
--- NOTE | 2017-08-24 21:15 | ED ---
Neuro HPI - General Chief Complaint: Neuro Symptoms/Deficit Stated Complaint: Poss Stroke Time Seen by Provider: 08/24/17 21:05 Source: patient, EMS Mode of arrival: ambulatory Limitations: no limitations - History of Present Illness Is the patient presenting with stroke symptoms?: Yes Last Known Well Date: 08/24/17 Last Known Well Time: 20:15 -: minutes(s) Initial Comments: This patient is a 62-year-old man brought to be evaluated for possible stroke. The patient is not able to give complete history due to what appears to be expressive aphasia. History is supplemented by his . The patient had come out of his home to speak with his around 8:20 PM and he was not making sense so his was concerned then convinced him to come here to be evaluated. She had previously seen him she believes just prior to 8 PM and he had been doing okay. The patient is denying headache, chest pain, dyspnea. He is not complaining of weakness. Location: speech History of same: No Place: home Severity: mild Improves With: none Worsens With: none On Anticoagulants: No Context: sudden onset Associated Symptoms: denies other symptoms Treatments Prior to Arrival: none - Related Data Home Medications: Home Medications Medication Instructions Recorded Confirmed Aspirin/Acetaminophen/Caffeine 1 - 3 tab PO Q6H PRN 05/26/17 08/24/17 [Excedrin Extra Strength Caplet] Insulin Degludec [Tresiba 35 unit SQ DAILY 05/26/17 08/24/17 Flextouch U-100] Allergies/Adverse Reactions: Allergies Allergy/AdvReac Type Severity Reaction Status Date / Time insulin lispro [From Humalog] AdvReac Diarrhea Verified 05/30/17 13:09 Review of Systems ROS Statement: Those systems with pertinent positive or pertinent negative responses have been documented in the HPI. ROS Other: All systems not noted in ROS Statement are negative. Constitutional: Denies: fever, chills Eyes: Denies: vision change Respiratory: Denies: cough, dyspnea Cardiovascular: Denies: chest pain, palpitations Gastrointestinal: Denies: abdominal pain, vomiting, diarrhea Genitourinary: Denies: dysuria, hematuria Musculoskeletal: Denies: back pain Skin: Denies: rash Neurological: Denies: headache, weakness, numbness, paresthesias, confusion Psychiatric: Denies: anxiety General Exam Limitations: no limitations General appearance: alert, in no apparent distress Head exam: Present: atraumatic, normocephalic Eye exam: Present: normal appearance. Absent: scleral icterus, conjunctival injection ENT exam: Present: normal oropharynx Neck exam: Present: normal inspection Respiratory exam: Present: normal lung sounds bilaterally. Absent: respiratory distress, wheezes, rales, rhonchi, stridor Cardiovascular Exam: Present: regular rate, normal rhythm, normal heart sounds. Absent: systolic murmur, diastolic murmur, rubs, gallop GI/Abdominal exam: Present: soft. Absent: distended, tenderness, guarding, rebound, mass Extremities exam: Present: normal inspection, normal capillary refill. Absent: pedal edema, calf tenderness Back exam: Present: normal inspection. Absent: CVA tenderness (R), CVA tenderness (L) Neurological exam: Present: alert, oriented X3, CN II-XII intact, other ( Patient has moderate expressive aphasia.). Absent: motor sensory deficit Skin exam: Present: warm, dry, intact, normal color. Absent: rash Stroke MDM - Lab Data Result diagrams: 08/24/17 21:00 08/24/17 21:00 Lab Results 08/24/17 08/24/17 08/24/17 Range/Units 20:59 21:00 21:00 WBC 6.9 (3.8-10.6) k/uL RBC 4.95 (4.30-5.90) m/uL Hgb 15.2 (13.0-17.5) gm/dL Hct 43.6 (39.0-53.0) % MCV 88.2 (80.0-100.0) fL MCH 30.7 (25.0-35.0) pg MCHC 34.8 (31.0-37.0) g/dL RDW 14.4 (11.5-15.5) % Plt Count 191 (150-450) k/uL Neutrophils % 73 % Lymphocytes % 18 % Monocytes % 6 % Eosinophils % 2 % Basophils % 1 % Neutrophils # 5.0 (1.3-7.7) k/uL Lymphocytes # 1.2 (1.0-4.8) k/uL Monocytes # 0.4 (0-1.0) k/uL Eosinophils # 0.1 (0-0.7) k/uL Basophils # 0.0 (0-0.2) k/uL PT (9.0-12.0) sec INR (<1.2) APTT (22.0-30.0) sec Sodium (137-145) mmol/L Potassium (3.5-5.1) mmol/L Chloride (98-107) mmol/L Carbon Dioxide (22-30) mmol/L Anion Gap mmol/L BUN (9-20) mg/dL Creatinine (0.66-1.25) mg/dL Est GFR (CKD-EPI)AfAm (>60 ml/min/1.73 sqM) Est GFR (CKD-EPI)NonAf (>60 ml/min/1.73 sqM) Glucose (74-99) mg/dL POC Glucose (mg/dL) 188 H (75-99) mg/dL POC Glu Field Project Manager Nellie Rodriguez Calcium (8.4-10.2) mg/dL Total Bilirubin (0.2-1.3) mg/dL AST (17-59) U/L ALT (21-72) U/L Alkaline Phosphatase (38-126) U/L Total Creatine Kinase 87 (55-170) U/L CK-MB (CK-2) 1.1 (0.0-2.4) ng/mL CK-MB (CK-2) Rel Index 1.3 Troponin I <0.012 (0.000-0.034) ng/mL Total Protein (6.3-8.2) g/dL Albumin (3.5-5.0) g/dL Serum Alcohol mg/dL 08/24/17 08/24/17 Range/Units 21:00 21:00 WBC (3.8-10.6) k/uL RBC (4.30-5.90) m/uL Hgb (13.0-17.5) gm/dL Hct (39.0-53.0) % MCV (80.0-100.0) fL MCH (25.0-35.0) pg MCHC (31.0-37.0) g/dL RDW (11.5-15.5) % Plt Count (150-450) k/uL Neutrophils % % Lymphocytes % % Monocytes % % Eosinophils % % Basophils % % Neutrophils # (1.3-7.7) k/uL Lymphocytes # (1.0-4.8) k/uL Monocytes # (0-1.0) k/uL Eosinophils # (0-0.7) k/uL Basophils # (0-0.2) k/uL PT 9.7 (9.0-12.0) sec INR 1.0 (<1.2) APTT 22.5 (22.0-30.0) sec Sodium 141 (137-145) mmol/L Potassium 3.9 (3.5-5.1) mmol/L Chloride 105 (98-107) mmol/L Carbon Dioxide 21 L (22-30) mmol/L Anion Gap 15 mmol/L BUN 22 H (9-20) mg/dL Creatinine 0.80 (0.66-1.25) mg/dL Est GFR (CKD-EPI)AfAm >90 (>60 ml/min/1.73 sqM) Est GFR (CKD-EPI)NonAf >90 (>60 ml/min/1.73 sqM) Glucose 189 H (74-99) mg/dL POC Glucose (mg/dL) (75-99) mg/dL POC Glu Field Project Manager ID Calcium 9.4 (8.4-10.2) mg/dL Total Bilirubin 0.6 (0.2-1.3) mg/dL AST 20 (17-59) U/L ALT 36 (21-72) U/L Alkaline Phosphatase 93 (38-126) U/L Total Creatine Kinase (55-170) U/L CK-MB (CK-2) (0.0-2.4) ng/mL CK-MB (CK-2) Rel Index Troponin I (0.000-0.034) ng/mL Total Protein 6.5 (6.3-8.2) g/dL Albumin 3.7 (3.5-5.0) g/dL Serum Alcohol <10 mg/dL - Medical Decision Making Patient is briefly seen and initial orders by Dr. Thomson. On return of the patient from computed tomography scan I did evaluate him, and the patient is seen by the stroke team using the stroke robot. They advise and the patient was given TPA. Case discussed with the neurosurgery team as they're facilitating transfer. Case discussed with Dr. Hdez at [facility], regarding transfer. - EKG Data -: EKG Interpreted by Ma EKG shows normal: sinus rhythm, axis (Normal), intervals (Normal), QRS complexes (Normal), ST-T waves (Normal) Rate: tachycardia (Rate approximately 116 bpm) Past Medical History Past Medical History: Diabetes Mellitus History of Any Multi-Drug Resistant Organisms: None Reported Past Surgical History: Orthopedic Surgery Additional Past Surgical History / Comment(s): LEFT KNEE Past Psychological History: No Psychological Hx Reported Smoking Status: Former smoker Past Alcohol Use History: None Reported Past Drug Use History: None Reported Course Vital Signs 08/24/17 08/24/17 08/24/17 21:02 21:05 21:17 Temperature 98.7 F Pulse Rate 120 H 120 H 115 H Respiratory 18 20 19 Rate Blood Pressure 180/112 193/135 O2 Sat by Pulse 98 99 Oximetry 08/24/17 08/24/17 08/24/17 21:20 21:25 21:35 Temperature Pulse Rate 110 H 117 H 101 H Respiratory 20 18 19 Rate Blood Pressure 194/116 183/109 174/104 O2 Sat by Pulse 95 95 95 Oximetry 08/24/17 21:50 Temperature Pulse Rate 102 H Respiratory 18 Rate Blood Pressure 169/103 O2 Sat by Pulse 96 Oximetry Critical Care Time Critical Care Time: Yes (40 minutes) Disposition Clinical Impression: Acute ischemic stroke, Hypertension, Hyperglycemia Disposition: OTHER INSTITUTION NOT DEFINED Condition: Serious Is patient prescribed a controlled substance at d/c from ED?: No Referrals: Jatinder Hernández MD [Primary Care Provider] - 1-2 days - Out of Hospital Transfer - Req. Specs Out of Hospital Transfer - Requested Specifics: Neurological ICU (Alex Gutierrez)
[2017-08-24 21:17] LABS: Basophils % (A) 1 %; Eosinophils # (A) 0.1 k/uL (0-0.7); Eosinophils % (A) 2 %; HCT 43.6 % (39.0-53.0); HGB 15.2 gm/dL (13.0-17.5); Lymphocytes # (A) 1.2 k/uL (1.0-4.8); Lymphocytes % (A) 18 %; MCH 30.7 pg (25.0-35.0); MCHC 34.8 g/dL (31.0-37.0); MCV 88.2 fL (80.0-100.0); Mean Platelet Volume 7.1; Monocytes # (A) 0.4 k/uL (0-1.0); Monocytes % (A) 6 %; Neutrophils % (A) 73 %; Platelet Count 191 k/uL (150-450); RBC 4.95 m/uL (4.30-5.90); RDW 14.4 % (11.5-15.5); WBC 6.9 k/uL (3.8-10.6)
[2017-08-24 21:26] LABS: Partial Thromboplastin Time 22.5 sec (22.0-30.0); Prothrombin Time 9.7 sec (9.0-12.0)
[2017-08-24] MEDS ORDERED: ALTEPLASE 100 MG VIAL IV STA (21:27)
--- NOTE | 2017-08-24 21:27 | CT ---
EXAMINATION TYPE: CT angio head neck DATE OF EXAM: 08/24/2017 HISTORY: Left sided weakness, slurred speech COMPARISON: NONE CT DLP: 410.6 mGycm. Automated Exposure Control for Dose Reduction was Utilized. TECHNIQUE: CTA scan of the neck is performed with IV Contrast, patient injected with 65 mL of Isovue 370, axial images are obtained, coronal and sagittal reformatted images are reviewed. Three-D recons tructed images are created on an independent workstation and reviewed. FINDINGS: Carotid/Vascular Structures: There is a three-vessel arch. Carotid bifurcation appears within normal limits. Internal carotid arteries extend to the skull base. Internal carotid arteries bifurcate into A1 and M1 segments. A2 segments appear normal. Middle cerebral artery branches appear unremarkable. N o abrupt cut off is evident. Vertebral arteries are patent. Basilar artery is unremarkable. Posterior cerebral vasculature is normal. Posterior communicating arteries appear patent. Other: Degenerative disc changes are noted within the cervical spine. IMPRESSION: 1. No significant flow-limiting abnormality is identified.
[2017-08-24 21:29] LABS: ALT 36 U/L (21-72); AST 20 U/L (17-59); Albumin 3.7 g/dL (3.5-5.0); Alcohol <10 mg/dL; Alkaline Phosphatase 93 U/L (38-126); Anion Gap 15 mmol/L; Blood Urea Nitrogen 22 mg/dL (9-20); Calcium 9.4 mg/dL (8.4-10.2); Carbon Dioxide 21 mmol/L (22-30); Chloride 105 mmol/L (98-107); Glucose 189 mg/dL (74-99); Potassium 3.9 mmol/L (3.5-5.1); Sodium 141 mmol/L (137-145); Total Bilirubin 0.6 mg/dL (0.2-1.3); Total Protein 6.5 g/dL (6.3-8.2)
[2017-08-24] MEDS ORDERED: LABETALOL 5 MG/ML VIAL MDV IVP SCH (21:30)
[2017-08-24] MEDS ORDERED: niCARdipine 25 MG in SODIUM CHLORIDE 0.9% 240 ML IV SCH (21:30)
[2017-08-24 21:31] LABS: Creatine Kinase 87 U/L (55-170)
[2017-08-24] MEDS ORDERED: ALTEPLASE BOLUS 9 MG in EMPTY SYRINGE 1 SYR IV STA (21:36)
[2017-08-24] MEDS ORDERED: ALTEPLASE 81 MG in EMPTY BAG 1 BAG IV STA (21:36)
[2017-08-24 21:43] LABS: Creatine Kinase MB 1.1 ng/mL (0.0-2.4); Troponin I <0.012 ng/mL (0.000-0.034)
[2017-08-24 21:55] VITALS: RESP 18
--- NOTE | 2017-08-24 22:07 | XR ---
EXAMINATION TYPE: XR chest 1V portable DATE OF EXAM: 08/24/2017 COMPARISON: 05/26/2017 INDICATION: Altered mental status acute mental status change stroke like symptoms TECHNIQUE: Single frontal view of the chest is obtained. FINDINGS: The heart size is normal. The pulmonary vasculature is normal. The lungs are clear. IMPRESSION: 1. No acute pulmonary process.
[2017-08-24 23:13] VITALS: BP 174/100; PULSE 104
== END 2017-08-24 22:28 | disposition other institution (70) ==
LOC: EC 20:45
DX: I63.9 Cerebral infarction, unspecified (principal); E11.65 Type 2 diabetes mellitus with hyperglycemia; I10 Essential (primary) hypertension; Z87.891 Personal history of nicotine dependence; Z79.4 Long term (current) use of insulin; Z88.8 Allergy status to other drugs, medicaments and biological substances
CPT/HCPCS: 36415; 93005; 80053; 82550; 82553; 84484; 85025; 85610; 85730; 80320; 71045; 70496; 70450; 70498; 99291; 37195; 96374; J2997; Q9967

== ENCOUNTER → 2017-11-11 | Outpatient (CLI) | payer OTHER | END | disposition home or self-care (01) | LOC: RADMRIMAIN 08:16 | PROVIDERS: ATTEND Orthopaedic Surgery | DX: Z53.9 Procedure and treatment not carried out, unspecified reason (principal) ==

== ENCOUNTER → 2017-11-28 | Outpatient (CLI) | payer OTHER ==
[2017-11-28 16:11] LABS: Basophils % (A) 1 %; Eosinophils # (A) 0.1 k/uL (0-0.7); Eosinophils % (A) 2 %; HCT 45.3 % (39.0-53.0); HGB 15.1 gm/dL (13.0-17.5); Lymphocytes # (A) 1.2 k/uL (1.0-4.8); Lymphocytes % (A) 19 %; MCH 30.2 pg (25.0-35.0); MCHC 33.3 g/dL (31.0-37.0); MCV 90.6 fL (80.0-100.0); Mean Platelet Volume 7.3; Monocytes # (A) 0.4 k/uL (0-1.0); Monocytes % (A) 6 %; Neutrophils # (A) 4.5 k/uL (1.3-7.7); Neutrophils % (A) 72 %; Platelet Count 237 k/uL (150-450); WBC 6.3 k/uL (3.8-10.6)
[2017-11-28 16:38] LABS: Appearance,Urine Clear (Clear); Bacteria,Urine Rare /hpf; Bilirubin,Urine Negative (Negative); Blood,Urine Negative (Negative); Color,Urine Light Yellow; Glucose,Urine (UA) 4+ (Negative); Ketones,Urine Negative (Negative); Leukocyte Esterase,Urine Negative (Negative); Nitrite,Urine Negative (Negative); PH, Urine 5.5 (5.0-8.0); Protein,Urine 1+ (Negative); RBC,Urine <1 /hpf (0-5); Urobilinogen,Urine <2.0 mg/dL (<2.0); WBC,Urine <1 /hpf (0-5)
[2017-11-28 16:50] LABS: Albumin 3.9 g/dL (3.5-5.0); C Reactive Protein 6.8 mg/L (<10.0); Calcium 9.5 mg/dL (8.4-10.2); Phosphorus 4.9 mg/dL (2.5-4.5); Potassium 4.7 mmol/L (3.5-5.1); Total Bilirubin 0.8 mg/dL (0.2-1.3); Total Protein 6.9 g/dL (6.3-8.2); Uric Acid 8.3 mg/dL (3.5-8.5)
[2017-11-28 17:01] LABS: T4, Free (Free Thyroxine) 1.37 ng/dL (0.78-2.19)
[2017-11-28 21:03] LABS: Erythrocyte Sedimentation Rate 8 mm/hr (0-15)
[2017-11-29 01:44] LABS: Protein, Total 6.9 g/dL (6.2-8.2); Rheumatoid Factor 9 IU/mL (0-15); Streptolysin O Ab(ASO) 41 IU/mL (0-200)
[2017-11-29 01:56] LABS: Parathyroid Hormone Intact 47.6 pg/mL (14.0-72.0)
[2017-11-29 02:09] LABS: Hepatitis C IgG Antibody Non-Reactive (Non-Reactive)
[2017-11-29 04:03] LABS: Cyclic Citrullinated Pep IgG NEGATIVE (NEGATIVE)
[2017-11-29 05:18] LABS: Angiotensin-1 Converting Enz. 41 U/L (8-52)
[2017-11-29 14:08] LABS: HLA B27 NEGATIVE
[2017-12-02 08:18] LABS: Hepatits C Virus RNA Not detected (Not detected); Hepatits C Virus RNA, Quant <12 IU/mL (<12); LOG HCV IU/mL <1.08 (<1.08)
[2017-12-02 11:51] LABS: Vitamin D, 1, 25-Dihydroxy 16 pg/mL (20 - 79)
[2017-12-02 13:55] LABS: Albumin 3.95 g/dL (3.80-4.90)
== END | disposition home or self-care (01) ==
LOC: LABWHC1 15:27
PROVIDERS: ATTEND Physical Medicine & Rehabilitation
DX: E11.9 Type 2 diabetes mellitus without complications (principal); M62.81 Muscle weakness (generalized); M54.16 Radiculopathy, lumbar region; M21.372 Foot drop, left foot; M47.26 Other spondylosis with radiculopathy, lumbar region; M51.36 Other intervertebral disc degeneration, lumbar region
CPT/HCPCS: 36415; 80053; 81001; 82164; 82306; 82310; 82550; 82553; 82652; 83516; 83615; 83970; 84100; 84165; 84207; 84425; 84439; 84443; 84550; 85025; 85652; 86038; 86060; 86140; 86200; 86235; 86431; 86618; 86780; 86803; 86812; 87522

== ENCOUNTER → 2018-03-03 | Outpatient (CLI) | payer OTHER ==
--- NOTE | 2018-03-03 23:08 | CONS ---
CONSULTATION DATE OF SERVICE: 03/03/2018. REASON FOR CONSULTATION: Sleep apnea. HISTORY OF PRESENT ILLNESS: This is a 62-year-old male patient who is coming in difficulty with sleep quality. Sleep is fragmented and he wakes up constantly in the middle of the night. On further questioning, the patient gives a history of diabetes. Over the past 1-1/2 or 2 years the patient has been having some myofascial pain throughout his body. This pain is migrating from his arm to his shoulder, then to his abdomen, to his lower chest, and sometimes to his lower extremities bilaterally. The anatomic distribution cannot be explained by single disorder and probably this is a chronic myofascial pain or neuropathic pain. The patient has been placed on Lyrica. Never the less, the pain has been extensive and despite [place] treatment at a dose of 5/325 one tablet p.r.n., the patient has been having pain and this typically wakes him up from sleep. He is obese, his current weight is 277, and he claims that he has lost around 45 to 50 pounds over the past 5 years. He has been trying to lose weight and this is an intentional weight loss. He does snore. No witnessed apneas. No major hypersomnia or sleepiness during the day unless his sleep is very much fragmented. His current [place] score is a 6. His sleep is restless and he attributes this mainly to pain and he does not have any typical features of RLS. He goes to bed around 9 p.m. He wakes up constantly throughout the night to get himself comfortable, and this is mainly due to pain. He does not wake up gasping for air, choking, or with a gasping sensation. He ultimately gets out of bed around 7:30 a.m. in the morning. He does not feel refreshed during the day. PAST MEDICAL HISTORY: 1. Obesity with interval weight loss. 2. Diabetes mellitus. 3. Degenerative arthritis. 4. Rotator cuff injury to his right shoulder with chronic right shoulder pain. 5. Chronic myofascial pain versus neuropathy. 6. Hypertension. 7. Previous history of CVA without any major deficits. SURGICAL HISTORY: Includes hernia repair, insertion and removal of the cardiac loop recorder. MEDICATIONS: 1. [place] 5/325 one to two tablets on a daily basis. 2. Meloxicam 50 mg 1 tablet a day. 3. Losartan 100 mg p.o. daily. 4. Trulicity 75 mg p.o. once a week. 5. Toujeo 50 units daily. 6. Lyrica 50 mg twice a day. SOCIAL HISTORY: The patient is a nonsmoker. No history of alcohol. No IV drugs. He is an ex-smoker. FAMILY HISTORY: Noncontributory to current presentation. Negative for sleep apnea disorder. REVIEW OF SYSTEMS: A 12-point review of system was done. Positive findings are mentioned above in the history of present illness. PHYSICAL EXAMINATION: BP is 161/93, pulse 80, respirations 16, temp 98.5, saturation 97% on room air. Height is 5 feet 9 inches, weight is 77, BMI is 40.9, neck size is 18-1/4 inches. GENERAL APPEARANCE: Appears calm and comfortable. HEAD: Atraumatic, normocephalic. NECK: Supple. Mallampati class 1 overbite. No goiter or neck masses. LUNGS: Clear to auscultation. HEART: Sounds regular rhythm. Normal S1, S2. No S3, S4. No murmurs. ABDOMEN: Obese, soft, nontender. Organs cannot be adequately palpated. EXTREMITIES: No edema. No cyanosis or clubbing. NEUROLOGIC: Alert and oriented x3. No focal neurological deficits. IMPRESSION: 1. Hypersomnia with impaired sleep quality and sleep fragmentation and frequent nocturnal arousals, likely on the basis of his chronic pain. Underlying sleep apnea is felt to be less likely based on his reported history and clinical presentation. 2. Chronic sleepiness, tiredness, and fatigue. [place] score is at 16. 3. Morbid obesity with interval 50 pound weight loss. Current BMI is 40.9. 4. Chronic pain, likely myofascial pain versus peripheral neuropathy. 5. Hypertension. 6. Previous history of cerebrovascular accident without any deficits. 7. Right rotator cuff injury with ongoing shoulder pain. 8. Diabetes mellitus. 9. Degenerative arthritis. PLAN: I had a lengthy discussion with the patient. Obviously sleep is fragmented and his pain has to be under better control. Upon intake, he notes that with meloxicam he is able to sleep better at nighttime and wakes up more refreshed and this obviously confirms the fact that the patient's sleep fragmentation is probably related to his extensive an ongoing migrating pain. Would like to get a polysomnogram to see if there is any other primary sleep disorder contributing to his sleep fragmentation and hypersomnia. Encouraged further weight loss. Tight control of diabetes mellitus. Continue Lyrica for now. We will continue to follow and make further recommendations based on his progress. MMODL / IJN: [id number] /
== END | disposition home or self-care (01) ==
LOC: SLEEP 14:44
PROVIDERS: ATTEND Internal Medicine Critical Care Medicine
DX: G47.10 Hypersomnia, unspecified (principal); G47.8 Other sleep disorders; R53.83 Other fatigue; E66.01 Morbid (severe) obesity due to excess calories; G89.29 Other chronic pain; I10 Essential (primary) hypertension; S46.001A Unspecified injury of muscle(s) and tendon(s) of the rotator cuff of right shoulder, initial encounter; E11.9 Type 2 diabetes mellitus without complications; M19.90 Unspecified osteoarthritis, unspecified site; Z98.890 Other specified postprocedural states; Z79.891 Long term (current) use of opiate analgesic; Z79.1 Long term (current) use of non-steroidal anti-inflammatories (NSAID); Z79.84 Long term (current) use of oral hypoglycemic drugs; Z68.41 Body mass index [BMI] 40.0-44.9, adult; Z86.73 Personal history of transient ischemic attack (TIA), and cerebral infarction without residual deficits; Z79.4 Long term (current) use of insulin; Z87.891 Personal history of nicotine dependence; Z79.899 Other long term (current) drug therapy
CPT/HCPCS: 99211

== ENCOUNTER → 2018-05-12 | Outpatient (CLI) | payer OTHER ==
--- NOTE | 2018-05-12 16:54 | PN ---
PROGRESS NOTE 62-year-old male patient coming in for a compliancy check regarding obstructive sleep apnea. This 62-year-old male patient presenting with hypersomnia and impaired sleep quality. His sleep was very much fragmented. He had history of stroke. He has chronic degenerative arthritis and pain which has been another major factor in his poor sleep quality and the patient had been unable to get himself comfortable as he would wake up, constant in the middle of the night. Moving back and forth between a bed and the recliner. The split night study was ordered and the patient was found to have severe NILSA with an AHI of 31. Based on his chronic hypersomnia and sleepiness, the patient was started on CPAP therapy and the patient is currently on a APAP mode with a minimum pressure of 9 maximum pressure of 16. After going through various max, the patient has settled down to a DreamWear full face mask which seems to be quite comfortable. I checked his compliance data and the patient's data has been poor. Over the past 30 days the patient has utilized his machine only 10 days and he has been able to achieve more than 4 hours only 1 or 2 days. Mainly 2 days. He is averaging about 3.6 hours of APAP use and his AHI while on treatment is down to 2.6 with a leak factor of 26 L per minute. I discussed this with the patient. They were many issues affecting his compliancy. First of all, he is still waking up constantly in the middle of the night because of excessive pain. Also is having oral dryness. He has also assessed that the pressure itself is low and he feels like it is suffocating him. This has blood level of anxiety and discomfort to the point where the patient has not been able to use and has been using it on a regular basis. REVIEW OF SYSTEMS: 12-point review of system was done. His sleep quality is still impaired. He is having a chronic pain. Body aches. Degenerative arthritis. No shortness of breath. No chest pain. No angina. He has chronic shoulder pain. No hypoglycemic attacks. His chronic hypersomnia is still there with an [place] score of 16. BP is 174/110, pulse 88, respirations 16, temperature 98.4, weight is 380, saturation 96% on room air. GENERAL APPEARANCE: Calm, comfortable. Head is atraumatic, normocephalic. Neck is short. There is no JVD. No goiter or neck masses. LUNGS: Diminished breath sounds bilaterally otherwise clear. HEART: Sounds regular rate and rhythm. Normal S1, S2. No S3. No murmurs. ABDOMEN: Soft, nontender. No organomegaly. No direct tenderness, rebound tenderness or guarding. EXTREMITIES: Trace edema. There is no cyanosis or clubbing. NEUROLOGIC: Alert and oriented times three x3. No focal neurological deficits. SKIN: Normal. Negative for any wounds or ulceration. IMPRESSION: 1. Severe symptomatic obstructive sleep apnea with an AHI of 31. Currently on APAP, minimum of 9, maximum of 16. There has been some difficulty utilizing and tolerating the CPAP. 2. Degenerative arthritis. 3. Chronic pain. 4. Hypersomnia [place] score of 16. 5. Hypertension. 6. History of cerebrovascular accident. 7. Rotator cuff injury in the right shoulder. 8. Diabetes mellitus. PLAN: I asked the patient to become more compliant with CPAP machine. I had to do some changes on the setting. I eliminated the ramp time which is giving this patient quite uncomfortable feeling of suffocation due to low starting pressures. Keep the minimum pressure at 9, maximum pressure of 16 knowing that the patient has been averaging around 12-13 cm of water. The patient has been successfully treated if he is able to tolerate the machine. I asked him to move his recliner to his bedside and he can alternate between sleeping on a recliner and a regular bed. I dropped the temperature of tubing down to 66, and I added initial humidity up to 5. I am going to continue using a DreamWear nose mask. I asked him to take [place] at night time to control his pain more effectively. He has made a commitment to become more compliant. I will see him back in 6 weeks' time for another and final check. MMODL / IJN: [id number] /
== END | disposition home or self-care (01) ==
LOC: SLEEP 15:13
PROVIDERS: ATTEND Internal Medicine Critical Care Medicine
DX: G47.33 Obstructive sleep apnea (adult) (pediatric) (principal); E11.9 Type 2 diabetes mellitus without complications; M19.90 Unspecified osteoarthritis, unspecified site; G89.29 Other chronic pain; M25.519 Pain in unspecified shoulder; I10 Essential (primary) hypertension; S46.001A Unspecified injury of muscle(s) and tendon(s) of the rotator cuff of right shoulder, initial encounter; Z99.89 Dependence on other enabling machines and devices; Z86.73 Personal history of transient ischemic attack (TIA), and cerebral infarction without residual deficits

== ENCOUNTER → 2018-07-07 | Outpatient (CLI) | payer OTHER ==
--- NOTE | 2018-07-07 18:31 | PN ---
PROGRESS NOTE This 62-year-old male patient is doing better in terms of his compliancy. He has obstructive sleep apnea with an AHI of 31. On today's evaluation, I noted some improved effort utilizing his CPAP unit, which is an APAP minimum of 9, maximum of 16. As mentioned earlier, the patient was having difficulties, mainly due to his ongoing degenerative arthritis and shoulder pain, as the patient is known to have rotator cuff injury and he has been in constant pain, taking [place] at night time. I switched him to a DreamWear full-face mask, which he likes, and he seems to be much more compliant. Based on the compliance data, the numbers are improving and the patient has been averaging around 4.1 hours of APAP use per night. His APAP use for more than 4 hours is 50%. He is averaging a pressure of 14 cm of water and his AHI is down to 2.4 while on treatment. His hypersomnia has improved and he is happy and content with the treatment and he has pledged to improve his compliance over the next 4-6 months. He has no specific complaints otherwise for now. REVIEW OF SYSTEMS: Fourteen 14-point review of systems was done. Positive findings are all mentioned above in the history of present illness. He has had a previous CVA. He still has degenerative arthritis and shoulder pain. He is seeking shoulder surgery in the future. PHYSICAL EXAMINATION: BP is 160/96, pulse 82, respirations 16, temperature 98.2, saturation 96% on room air. Height is 5 feet 9 inches, weight 285, and his BMI is 42. GENERAL APPEARANCE: Calm and comfortable. Head is atraumatic, normocephalic. Neck is short, supple. Crowding of posterior pharynx. No goiter or neck masses. LUNGS: Clear to auscultation. HEART: Heart sounds are regular rate and rhythm. Normal S1, S2. No S3, S4. No murmurs. ABDOMEN: Soft, nontender. No organomegaly. EXTREMITIES: No edema. No cyanosis or clubbing. NEUROLOGIC: Alert and oriented x3. There is no focal neurological deficit. PSYCHIATRIC: Negative for anxiety or depression. IMPRESSION: 1. Severe obstructive sleep apnea with an apnea/hypopnea index of 31, currently on APAP, minimum of 9, maximum of 16, with improving compliancy. 2. Hypersomnia, improved. [place] score is down to 8. 3. Obesity with a body mass index of 42. 4. History of cerebrovascular accident. 5. Hypertension. 6. Rotator cuff injury with ongoing shoulder pain. 7. Diabetes mellitus. PLAN: 1. Improve compliancy data. 2. Implement good sleep hygiene measures. 3. Will request the patient to wear his CPAP for more than 4 hours every night. 4. He is seeking shoulder surgery at a later stage. 5. See me back in a year's time, earlier if needed. For now, the numbers seem to be improving, and I think the patient will hit full compliancy within the next few months. MMODL / IJN: [id number] /
== END ==
LOC: SLEEP 15:22
PROVIDERS: ATTEND Internal Medicine Critical Care Medicine
DX: G47.33 Obstructive sleep apnea (adult) (pediatric) (principal); E66.9 Obesity, unspecified; I10 Essential (primary) hypertension; M25.519 Pain in unspecified shoulder; E11.9 Type 2 diabetes mellitus without complications; Z68.41 Body mass index [BMI] 40.0-44.9, adult; Z86.73 Personal history of transient ischemic attack (TIA), and cerebral infarction without residual deficits

== ENCOUNTER → 2018-09-15 | Outpatient (CLI) | payer OTHER ==
--- NOTE | 2018-09-15 16:19 | PN ---
PROGRESS NOTE This patient is coming in for another compliancy check. During his last evaluation, he was unable to meet insurance standards. I made some changes on his mask interface and I offered him DreamWear full-face mask. Today, he is still on an APAP with a minimum pressure of 9, maximum pressure of 16 cm. Humidity is at 5. His baseline AHI of 31, he is very compliant. He is using his machine every night. He wakes up much more alert and awake during the day. He is benefitting from the treatment. His improvement has been considerable to the point where the patient is not falling asleep during day-to- day activities. Weight is up by around 4 pounds. On today's compliancy check, the patient has been averaging around 5.2 hours of CPAP use per night. His CPAP use for more than 4 hours is 100%. Average pressure is at 14.4. Leak is 24 L/minute. AHI is down to 2.3. No other issues otherwise for now. REVIEW OF SYSTEMS: Fourteen-point review of system was done. Positive for few pounds of weight gain. He has chronic pain involving his shoulder and he is seeking surgery related to rotator cuff. No headaches. No chest pain. No shortness of breath. No altered mentation. No heartburn. No swelling in the lower extremities. PHYSICAL EXAMINATION: BP 141/83, pulse 76, respirations 16, temperature 98.0, saturation is 95% on room air. Weight is 285. GENERAL APPEARANCE: Obese, calm, comfortable. HEAD is atraumatic, normocephalic. NECK is short, supple. Mallampati class IV. There is no goiter or neck mass. LUNGS: Diminished, otherwise clear. HEART: Sounds regular rate and rhythm. Normal S1, S2. No S3. No murmurs. ABDOMEN: Soft, obese. Organs cannot be palpated. No tenderness, rebound or guarding. EXTREMITIES: No edema. No cyanosis or clubbing. NEUROLOGIC: Alert and oriented x3. No focal neurological deficits. PSYCHIATRIC: Negative for anxiety or depression. IMPRESSION: 1. Severe obstructive sleep apnea, AHI of 31, currently on APAP with successful treatment. 2. Hypersomnia, improved. 3. Obesity with a BMI of 42, interval 4 pounds weight gain. 4. Cerebrovascular accident, hypertension. 5. Chronic shoulder pain causing sleep disruption related to rotator cuff injury. 6. Diabetes mellitus. PLAN: The patient has met insurance guidelines for compliancy. He is doing extremely well. Averaging more than 5 hours of APAP use per night. Encourage losing weight. Continue same mask interface which is a DreamWear full face mask. See me back in a year's time in followup. His treatment is successful for now. MMODL / IJN: [id number] /
== END | disposition home or self-care (01) ==
LOC: SLEEP 13:28
PROVIDERS: ATTEND Internal Medicine Critical Care Medicine
DX: G47.33 Obstructive sleep apnea (adult) (pediatric) (principal); E66.9 Obesity, unspecified; I10 Essential (primary) hypertension; I63.9 Cerebral infarction, unspecified; E11.9 Type 2 diabetes mellitus without complications; G89.29 Other chronic pain; S46.001A Unspecified injury of muscle(s) and tendon(s) of the rotator cuff of right shoulder, initial encounter; Z68.41 Body mass index [BMI] 40.0-44.9, adult; Z99.89 Dependence on other enabling machines and devices

== ENCOUNTER → 2019-04-12 | Outpatient (CLI) | payer OTHER | END | disposition home or self-care (01) | LOC: LABWHC1 14:04 | PROVIDERS: ATTEND Physician Assistant Medical | DX: L95.8 Other vasculitis limited to the skin (principal) | CPT/HCPCS: 36415; 86038 ==

== ENCOUNTER → 2020-05-25 | Outpatient (CLI) | payer MEDICARE ==
--- NOTE | 2020-05-26 06:50 | CT ---
EXAMINATION TYPE: CT abdomen w con DATE OF EXAM: 05/25/2020 COMPARISON: CT May 22, 2017 HISTORY: Epigastric pain x2 weeks and abnormal labs. CT DLP: 2274.8 mGycm, Automated Exposure Control for Dose Reduction was Utilized. CONTRAST: CT scan of the abdomen is performed with oral water and with IV Contrast, patient injected with 100ml mL of Isovue 370. FINDINGS: LUNG BASES: No significant abnormality is appreciated. LIVER/GB: No significant abnormality is appreciated. PANCREAS: Pancreas appears within normal limits. SPLEEN: No significant abnormality is seen. ADRENALS: No significant abnormality is seen. KIDNEYS: Some cortical thinning of both kidneys with few small scattered simple-appearing thin-walled cysts bilaterally. Findings consistent with product of chronic medical renal disease. No hydronephro sis seen bilaterally. BOWEL: A few scattered colonic diverticula. LYMPH NODES: No greater than 1cm abdominal lymph nodes are appreciated. OSSEOUS STRUCTURES: Mild to moderate multilevel spurring in the spine. OTHER: No significant additional abnormality is seen. IMPRESSION: No CT evidence for complication related to acute pancreatitis. No acute findings are evid ent.
== END | disposition home or self-care (01) ==
LOC: RADCTMAIN 16:09
PROVIDERS: ATTEND Family Medicine
DX: R10.9 Unspecified abdominal pain (principal)
CPT/HCPCS: 74160; Q9967

== ENCOUNTER → 2020-06-05 | Outpatient (CLI) | payer MEDICARE ==
[2020-06-05 08:57] LABS: Basophils % (A) 1 %; Eosinophils # (A) 0.1 k/uL (0-0.7); Eosinophils % (A) 1 %; HCT 42.9 % (39.0-53.0); HGB 14.2 gm/dL (13.0-17.5); Lymphocytes % (A) 13 %; MCH 29.6 pg (25.0-35.0); MCV 89.7 fL (80.0-100.0); Mean Platelet Volume 7.2; Monocytes # (A) 0.4 k/uL (0-1.0); Monocytes % (A) 5 %; Neutrophils % (A) 79 %; Platelet Count 239 k/uL (150-450); RBC 4.79 m/uL (4.30-5.90); RDW 14.7 % (11.5-15.5); WBC 7.6 k/uL (3.8-10.6)
--- NOTE | 2020-06-05 09:09 | US ---
EXAMINATION TYPE: US gallbladder DATE OF EXAM: 06/05/2020 COMPARISON: NONE CLINICAL HISTORY: 64-year-old male K85.90 Acute pancreatitis w/o necrosis/infection. Pancreatitis. TECHNIQUE: Multiple sonographic images of the right upper quadrant are obtained. FINDINGS: Patient Care Technician notes: Exam limited due to body habitus. EXAM MEASUREMENTS: Liver Length: 24.3 cm Gallbladder Wall: .3 cm CBD: .5 cm Right Kidney: 12.4 x 5.3 x 4.7 cm Pancreas: Obscured by bowel gas Liver: Enlarged, echogenic, and attenuating. This secondarily limits assessment for focal lesions. Gallbladder: No stones seen Evidence for sonographic Saini's sign: No CBD: wnl Right Kidney: No hydronephrosis. IMPRESSION: 1. Hepatomegaly (24.3 cm) with severe hepatic steatosis. Correlate with LFTs, lipid profile, and jason ent risk factors. 2. Suboptimal visualization of the pancreas. 3. No gallstones or biliary ductal dilatation.
[2020-06-05 09:11] LABS: Albumin 3.7 g/dL (3.5-5.0); Calcium 9.2 mg/dL (8.4-10.2); Potassium 4.4 mmol/L (3.5-5.1); Total Bilirubin 0.5 mg/dL (0.2-1.3); Total Protein 7.2 g/dL (6.3-8.2)
== END | disposition home or self-care (01) ==
LOC: RADUSWWP 07:36
PROVIDERS: ATTEND Internal Medicine
DX: K76.0 Fatty (change of) liver, not elsewhere classified (principal); R16.0 Hepatomegaly, not elsewhere classified; I10 Essential (primary) hypertension
CPT/HCPCS: 76705; 80053; 80061; 82150; 83690; 85025

== ENCOUNTER → 2020-06-13 | Outpatient (CLI) | payer MEDICARE ==
--- NOTE | 2020-06-13 15:24 | NM ---
EXAMINATION TYPE: NM hepatobiliary w EF DATE OF EXAM: 06/13/2020 COMPARISON: Ultrasound 06/05/2020 HISTORY: 64-year-old male R16.0, hepatomegaly. TECHNIQUE: After the intravenous administration of 5.3 mCi Tc 99m Mebrofenin hepatobiliary scintigrap hy is performed. Immediate images post injection. FINDINGS: There is satisfactory initial accumulation of tracer by the liver. The gallbladder is visualized wit hin 6 minutes. The small bowel activity is noted within 4 minutes. At one hour 8 ounces of oral ens ure plus is given to mimic CCK and gallbladder ejection fraction is calculated at 60 %, in the normal range. Therefore there is no scintigraphic evidence of cystic or common bile duct obstruction to ramsey ggest acute cholecystitis or gallbladder dyskinesia. IMPRESSION: No scintigraphic evidence for acute/chronic cholecystitis or biliary dyskinesia.
== END ==
LOC: RADNMMAIN 12:49
PROVIDERS: ATTEND Internal Medicine
DX: R16.0 Hepatomegaly, not elsewhere classified (principal)
CPT/HCPCS: 78226; A9537

== ENCOUNTER → 2020-10-03 | Outpatient (CLI) | payer MEDICARE | END | disposition home or self-care (01) | CPT/HCPCS: 82565; 84520; 71260; 36415; Q9967 ==

== ENCOUNTER → 2021-12-26 | Outpatient (CLI) | payer MEDICARE ==
[2021-12-27 02:00] LABS: Rheumatoid Factor, Qnt <10 IU/mL (0-15)
[2021-12-27 02:02] LABS: C-Peptide 5.96 ng/mL (0.81-3.85)
[2021-12-27 02:18] LABS: African American GFR (CKD) 62.8 (60.0-200.0); Creatine Kinase 266 U/L (35-257); Magnesium 2.1 mg/dL (1.5-2.4); Non-African American GFR(CKD) 54.2 (60.0-200.0); Uric Acid 8.6 mg/dL (3.7-8.7)
== END | disposition home or self-care (01) ==
LOC: LABWHC1 16:02
PROVIDERS: ATTEND Family Medicine
DX: E11.21 Type 2 diabetes mellitus with diabetic nephropathy (principal); M25.50 Pain in unspecified joint; M79.604 Pain in right leg; Z79.4 Long term (current) use of insulin; R20.2 Paresthesia of skin
CPT/HCPCS: 36415; 82550; 82565; 82607; 82746; 83735; 84443; 84550; 84681; 85379; 85652; 86038; 86337; 86431

== ENCOUNTER → 2022-02-28 | Outpatient (CLI) | payer MEDICARE ==
--- NOTE | 2022-03-01 04:45 | MR ---
EXAMINATION TYPE: MR lumbar spine wo con DATE OF EXAM: 02/28/2022 COMPARISON: 06/28/2017 HISTORY: LUMBAGO WITH SCIATICA Multiplanar multi echo imaging of the lumbar spine performed with no contrast. The lumbar vertebrae have normal alignment. Disc spaces are fairly normal. No compression fracture. P osterior elements are intact. The neural foramina are fairly well-maintained. There is no lumbar para spinal mass. Sacroiliac joints are intact. No focal bone destruction. The sacroiliac joints are intac t. IMPRESSION: Negative MR scan of the lumbar spine. No significant change compared to the old exam. There is minimal subcutaneous edema over the lower lumbar spine which is a change compared to old exa m.
== END | disposition home or self-care (01) ==
LOC: RADMRIMAIN 17:48
PROVIDERS: ATTEND Orthopaedic Surgery
DX: M54.41 Lumbago with sciatica, right side (principal); G89.29 Other chronic pain; R60.0 Localized edema
CPT/HCPCS: 72148

== ENCOUNTER → 2022-03-14 | Outpatient (CLI) | payer MEDICARE ==
--- NOTE | 2022-03-16 09:34 | MR ---
EXAMINATION TYPE: MR cspine/tspine wo con DATE OF EXAM: 03/14/2022 6:48 PM CLINICAL INDICATION:Male, 66 years old with history of M54.41 LUMBAGO W/SCIATICA, G89.29 PAIN, M54.16 RAD; COMPARISON: CT chest 10/03/2020 TECHNIQUE: Multi planar, multi sequence imaging was performed utilizing: T1-weighted, T2-weighted, a nd turbo inversion recovery imaging of the cervical and lumbar spine. MR contrast: IV Contrast: None. FINDINGS: CERVICAL: Alignment: The cervical in thoracic vertebral bodies have preserved heights. Alignment is within norm al limits given patient positioning. Bones: Scattered [place] endplate changes to the discs and findings are worse at C5-C6 adjoining endpl ates. Cord: The spinal cord is unremarkable with regards to their signal intensity and morphology. Discs: Disc desiccation is at C5-C6 with disc space narrowing. The remainder of the disc levels sign al is maintained. C2-C3: A disc eccentric left osteophyte complex is present which minimally narrows the ventral subara chnoid space. No neural foraminal stenosis. C3-C4: No significant disc pathology. The spinal canal is patent. No neural foraminal stenosis. C4-C5: No significant disc pathology. The spinal canal is patent. No neural foraminal stenosis. C5-C6: A disc osteophyte complex is present with mild spinal canal stenosis. No neural foraminal evette nosis. C6-C7: No significant disc pathology. The spinal canal is patent. No neural foraminal stenosis. C7-T1: No significant disc pathology. The spinal canal is patent. No neural foraminal stenosis. Other: None. THORACIC: T6-T7: Right paracentral protrusion without significant spinal canal stenosis. The neural foramen are patent. The remainder of the spine does not demonstrate significant spinal canal or neural foraminal stenosis . IMPRESSION: 1. No definitive evidence of significant spinal canal stenosis or neural foraminal stenosis. 2. Multilevel disc degeneration with associated osteoarthritic changes worse at C5-C6 and the cervic al spine 3. T6-T7 disc herniation without significant spinal canal stenosis.
== END | disposition home or self-care (01) ==
LOC: RADMRIMAIN 17:28
PROVIDERS: ATTEND Orthopaedic Surgery
DX: M50.322 Other cervical disc degeneration at C5-C6 level (principal); M51.24 Other intervertebral disc displacement, thoracic region; M47.812 Spondylosis without myelopathy or radiculopathy, cervical region; M54.41 Lumbago with sciatica, right side; M54.16 Radiculopathy, lumbar region; G89.29 Other chronic pain
CPT/HCPCS: 72141; 72146

== ENCOUNTER 2023-07-19 21:24 | Inpatient (IN) | payer MEDICARE ==
[2023-07-19] MEDS: SODIUM CHLORIDE 0.9% 2,000 ML IV STA (22:36)
[2023-07-19 22:57] LABS: Basophils % (A) 0 %; Eosinophils # (A) 0.1 k/uL (0-0.7); Eosinophils % (A) 1 %; HCT 37.4 % (39.0-53.0); HGB 11.7 gm/dL (13.0-17.5); Lymphocytes # (A) 0.9 k/uL (1.0-4.8); Lymphocytes % (A) 6 %; MCH 28.8 pg (25.0-35.0); MCHC 31.4 g/dL (31.0-37.0); MCV 91.7 fL (80.0-100.0); Mean Platelet Volume 7.7; Monocytes # (A) 0.7 k/uL (0-1.0); Monocytes % (A) 4 %; Neutrophils # (A) 13.4 k/uL (1.3-7.7); Neutrophils % (A) 88 %; Platelet Count 277 k/uL (150-450); RBC 4.08 m/uL (4.30-5.90); RDW 14.6 % (11.5-15.5); WBC 15.3 k/uL (3.8-10.6)
[2023-07-19 23:11] LABS: ALT 52 U/L (4-49); AST 41 U/L (17-59); African American GFR (CKD) 29 (>60 ml/min/1.73 sqM); Albumin 2.7 g/dL (3.5-5.0); Alkaline Phosphatase 445 U/L (38-126); Anion Gap 10 mmol/L; Blood Urea Nitrogen 36 mg/dL (9-20); Calcium 8.3 mg/dL (8.4-10.2); Carbon Dioxide 14 mmol/L (22-30); Chloride 110 mmol/L (98-107); Glucose 105 mg/dL (74-99); Non-African American GFR(CKD) 25 (>60 ml/min/1.73 sqM); Potassium 4.3 mmol/L (3.5-5.1); Sodium 134 mmol/L (137-145); Total Bilirubin 0.5 mg/dL (0.2-1.3)
[2023-07-19] MEDS ORDERED: VANCOMYCIN IV PER PHARMACY 1 EACH MISC MISCELLANE PRN (23:13)
[2023-07-19 23:19] LABS: Amorphous Sediment,Urine Few /hpf; Appearance,Urine Cloudy (Clear); Bacteria,Urine Rare /hpf; Bilirubin,Urine Negative (Negative); Blood,Urine Small (Negative); Color,Urine Yellow; Glucose,Urine (UA) 1+ (Negative); Granular Casts,Urine 16 /lpf (0); Hyaline Casts,Urine 36 /lpf (0-2); Ketones,Urine Negative (Negative); Leukocyte Esterase,Urine Negative (Negative); Mucus,Urine Rare /hpf; Nitrite,Urine Negative (Negative); Protein,Urine 2+ (Negative); RBC,Urine 1 /hpf (0-5); Specific Gravity,Urine 1.015 (1.001-1.035); Urobilinogen,Urine <2.0 mg/dL (<2.0); WBC,Urine 4 /hpf (0-5)
[2023-07-20] MEDS: SODIUM CHLORIDE 0.9% 1,000 ML IV STA (00:55)
[2023-07-20] MEDS: ACETAMINOPHEN TAB 500 MG TAB PO STA (00:55)
[2023-07-20] MEDS: PIPERACILLIN-TAZOBACTAM 3.375 GM in SODIUM CHLORIDE 0.9% 100 ML IVPB STA (00:55)
--- NOTE | 2023-07-20 00:58 | US ---
EXAM: US Abdomen Limited CLINICAL HISTORY: Male, 67 years old with history of back abscess; Redness and drainage to upper back right side Reason: back abscess TECHNIQUE: Grayscale and Doppler evaluation of Soft tissue upper back . 10 images COMPARISON: No relevant prior studies available. IMPRESSION: Small subcutaneous fluid collection with tract to skin in area of pt's redness and palpable, measuring about 2.2 x 1.2 x 1.8 cm and approx 0.9 cm deep, with minimal peripheral Doppler flow, can represent abscess versus seroma.
[2023-07-20] MEDS: VANCOMYCIN 2,000 MG in SODIUM CHLORIDE 0.9% 500 ML 500 ML IVPB STA (01:35)
--- NOTE | 2023-07-20 01:46 | ED ---
General Adult HPI - General Chief complaint: Skin/Abscess/Foreign Body Stated complaint: Infected Cyst on shoulder, Fever Time Seen by Provider: 07/19/23 21:49 Source: patient Mode of arrival: ambulatory Limitations: no limitations - History of Present Illness Initial comments: 67-year-old male with a past medical history significant for type 2 diabetes presenting to the ED with a chief complaint of abscess. Patient reports over the past week has had an abscess to his right upper back which has increasingly grown in size. For this saw his PCP who prescribed him Bactrim. Despite this, reports that abscess seems to be growing in size and has become more painful. In addition reports fevers and chills. No chest pain or shortness of breath. No other complaints at this time. - Related Data Home Medications Medication Instructions Recorded Confirmed Insulin Aspart [NovoLOG] 20 units SQ TID-W/MEALS 10/07/22 10/07/22 Insulin Glargine,Hum.rec.anlog 120 units SQ QAM 10/07/22 10/07/22 [Suleman Barksdale] Meclizine [Antivert] 25 mg PO DIRECTED PRN 10/07/22 10/07/22 Tirzepatide [Mounjaro] 2.5 mg SQ Q7D 10/07/22 10/07/22 Tolterodine ER [Detrol LA] 4 mg PO HS 10/07/22 10/07/22 lisinopriL [Zestril] 2.5 mg PO DAILY 10/07/22 10/07/22 Allergies Allergy/AdvReac Type Severity Reaction Status Date / Time insulin lispro [From Humalog] AdvReac Diarrhea Verified 07/19/23 21:41 Review of Systems ROS Statement: Those systems with pertinent positive or pertinent negative responses have been documented in the HPI. ROS Other: All systems not noted in ROS Statement are negative. Past Medical History Past Medical History: COPD, CVA/TIA, Diabetes Mellitus, Memory Impairment Additional Past Medical History / Comment(s): LISINOPRIL FOR KIDNEYS/DM. 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 History of Any Multi-Drug Resistant Organisms: None Reported Past Surgical History: Orthopedic Surgery Additional Past Surgical History / Comment(s): LEFT KNEE Past Anesthesia/Blood Transfusion Reactions: No Reported Reaction Additional Past Anesthesia/Blood Transfusion Reaction / Comment(s): PRONE TO VERTIGO Past Psychological History: No Psychological Hx Reported Smoking Status: Former smoker Past Alcohol Use History: None Reported Past Drug Use History: None Reported General Exam Limitations: no limitations General appearance: alert, in no apparent distress, obese, other Neck exam: Present: normal inspection Respiratory exam: Present: normal lung sounds bilaterally Cardiovascular Exam: Present: regular rate GI/Abdominal exam: Present: soft Extremities exam: Present: other (Abscess on the right upper back which appears to be approximately 8 x 12 cm in size with redness, warmth, erythema and is currently draining purulent material.) Neurological exam: Present: alert, oriented X3 Skin exam: Present: warm, dry Course Vital Signs 07/19/23 07/19/23 07/20/23 21:40 23:14 01:38 Temperature 100.2 F H 97.6 F 97.5 F L Pulse Rate 106 H 93 90 Respiratory 20 19 13 Rate Blood Pressure 168/77 135/86 128/71 O2 Sat by Pulse 96 95 95 Oximetry Medical Decision Making - Medical Decision Making Was pt. sent in by a medical professional or institution (, PA, COVER REMOVER, urgent ca re, hospital, or correction...) When possible be specific @ -No Did you speak to anyone other than the patient for history (EMS, parent, family, police, friend...)? What history was obtained from this source @ -No Did you review nursing and triage notes (agree or disagree)? Why? @ -I reviewed and agree with nursing and triage notes Were old charts reviewed (outside hosp., previous admission, EMS record, old EKG, old radiological studies, urgent care reports/EKG's, correction records)? Report findings @ -No old charts were reviewed Differential Diagnosis (chest pain, altered mental status, abdominal pain women, abdominal pain men, vaginal bleeding, weakness, fever, dyspnea, syncope, headache, dizziness, GI bleed, back pain, seizure, CVA, palpatations, mental health, musculoskeletal)? @ -Differential Fever: Pneumonia, viral URI, endocarditis, myocarditis, pericarditis, otitis, sinusitis, peritonsillar Abscess, retropharyngeal Abscess, epiglottitis, peritonitis, appendicitis, Ashlie cystitis, diverticulitis, hepatitis, colitis, UTI, PID, TOA, pyelonephritis, prostatitis, epididymitis, meningitis, encephalitis, pulmonary embolism, CVA, thyroid storm, pancreatitis, adrenal crisis, cavernous sinus thrombosis, this is not meant to be an all-inclusive list. EKG interpreted by me (3pts min.). @ -None X-rays interpreted by me (1pt min.). @ -None done CT interpreted by me (1pt min.). @ -None done U/S interpreted by me (1pt. min.). @ -Ultrasound interpreted me showing small subcutaneous fluid collection with tract to skin areas patient of redness measuring about 2.2 x 1.2 x 1.8 cm and approximately 0.9 cm deep possibly representing abscess. What testing was considered but not performed or refused? (CT, X-rays, U/S, labs)? Why? @ -None What meds were considered but not given or refused? Why? @ -None Did you discuss the management of the patient with other professionals (professionals i.e. , PA, COVER REMOVER, lab, RT, psych nurse, social media marketer, trucksmith, teacher, bank secrecy act officer, piano case and bench assembler)? Give summary @ -Case discussed with Dr. Deras, who accepts admission. Was smoking cessation discussed for >3mins.? @ -No Was critical care preformed (if so, how long)? @ -Yes, 35 minutes Were there social determinants of health that impacted care today? How? (Homeles sness, low income, unemployed, alcoholism, drug addiction, transportation, low edu. Level, literacy, decrease access to med. care, correction, rehab)? @ -No Was there de-escalation of care discussed even if they declined (Discuss DNR or withdrawal of care, Hospice)? DNR status @ -No What co-morbidities impacted this encounter? (DM, HTN, Smoking, COPD, CAD, Cancer, CVA, ARF, Chemo, Hep., AIDS, mental health diagnosis, sleep apnea, morbid obesity)? @ -Type 2 diabetes Was patient admitted / discharged? Hospital course, mention meds given and route, prescriptions, significant lab abnormalities, going to OR and other pertinent info. @ -Admission 67-year-old male with a past medical history significant for type 2 diabetes presenting to the ED with complaint of abscess. Has had abscess growing on his right upper back despite taking Bactrim for the past week. On initial arrival here concern for sepsis with fever of 100.2 and tachycardia at 106 however blood pressure stable at this time. On examination clear source of infection with area of redness, warmth, erythema and area of induration representing an abscess with purulent drainage. Patient ordered 2 L of IV fluids placed on maintenance fluids of 130 ml/h. Ordered Vanco and Zosyn for the patient. Wound culture was obtained. Blood cultures obtained. Laboratory studies reviewed. CBC signifi cant for elevated white blood cell count 15.3, elevated neutrophils at 13.4. Chemistry panel significant for elevations in BUN and creatinine at 36 and 2.57 respectively consistent with kidney injury. Additionally elevations in ALT of 52 alk phos of 445. UA not significantly concerning for infection at this time. Patient will be admitted for IV antibiotics with consult to general surgery. Undiagnosed new problem with uncertain prognosis? @ -No Drug Therapy requiring intensive monitoring for toxicity (Heparin, Nitro, Insulin, Cardizem)? @ -No Were any procedures done? @ -No Diagnosis/symptom? @ -Abscess to right upper back, sepsis Acute, or Chronic, or Acute on Chronic? @ -Acute Uncomplicated (without systemic symptoms) or Complicated (systemic symptoms)? @ -Complicated Side effects of treatment? @ -No Exacerbation, Progression, or Severe Exacerbation? @ -No Poses a threat to life or bodily function? How? (Chest pain, [place], [place], pneumonia, PE, COPD, DKA, ARF, appy, cholecystitis, CVA, Diverticulitis, Homicidal, Suicidal, threat to staff... and all critical care pts) @ -Yes, sepsis - Lab Data Result diagrams: 07/19/23 22:35 07/19/23 22:35 Lab Results 07/19/23 07/19/23 07/19/23 Range/Units 22:35 22:35 22:35 WBC 15.3 H (3.8-10.6) k/uL RBC 4.08 L (4.30-5.90) m/uL Hgb 11.7 L (13.0-17.5) gm/dL Hct 37.4 L (39.0-53.0) % MCV 91.7 (80.0-100.0) fL MCH 28.8 (25.0-35.0) pg MCHC 31.4 (31.0-37.0) g/dL RDW 14.6 (11.5-15.5) % Plt Count 277 (150-450) k/uL MPV 7.7 Neutrophils % 88 % Lymphocytes % 6 % Monocytes % 4 % Eosinophils % 1 % Basophils % 0 % Neutrophils # 13.4 H (1.3-7.7) k/uL Lymphocytes # 0.9 L (1.0-4.8) k/uL Monocytes # 0.7 (0-1.0) k/uL Eosinophils # 0.1 (0-0.7) k/uL Basophils # 0.0 (0-0.2) k/uL Sodium 134 L (137-145) mmol/L Potassium 4.3 (3.5-5.1) mmol/L Chloride 110 H (98-107) mmol/L Carbon Dioxide 14 L (22-30) mmol/L Anion Gap 10 mmol/L BUN 36 H (9-20) mg/dL Creatinine 2.57 H (0.66-1.25) mg/dL Est GFR (CKD-EPI)AfAm 29 (>60 ml/min/1.73 sqM) Est GFR (CKD-EPI)NonAf 25 (>60 ml/min/1.73 sqM) Glucose 105 H (74-99) mg/dL Plasma Lactic Acid Lamont (0.7-2.0) mmol/L Calcium 8.3 L (8.4-10.2) mg/dL Total Bilirubin 0.5 (0.2-1.3) mg/dL AST 41 (17-59) U/L ALT 52 H (4-49) U/L Alkaline Phosphatase 445 H (38-126) U/L Total Protein 6.0 L (6.3-8.2) g/dL Albumin 2.7 L (3.5-5.0) g/dL Urine Color Yellow Urine Appearance Cloudy (Clear) Urine pH 6.0 (5.0-8.0) Ur Specific Emmons 1.015 (1.001-1.035) Urine Protein 2+ H (Negative) Urine Glucose (UA) 1+ H (Negative) Urine Ketones Negative (Negative) Urine Blood Small H (Negative) Urine Nitrite Negative (Negative) Urine Bilirubin Negative (Negative) Urine Urobilinogen <2.0 (<2.0) mg/dL Ur Leukocyte Esterase Negative (Negative) Urine RBC 1 (0-5) /hpf Urine WBC 4 (0-5) /hpf Amorphous Sediment Few H (None) /hpf Urine Bacteria Rare H (None) /hpf Hyaline Casts 36 H (0-2) /lpf Granular Casts 16 (0) /lpf Urine Mucus Rare H (None) /hpf 07/18/ Range/Units 22:35 WBC (3.8-10.6) k/uL RBC (4.30-5.90) m/uL Hgb (13.0-17.5) gm/dL Hct (39.0-53.0) % MCV (80.0-100.0) fL MCH (25.0-35.0) pg MCHC (31.0-37.0) g/dL RDW (11.5-15.5) % Plt Count (150-450) k/uL MPV Neutrophils % % Lymphocytes % % Monocytes % % Eosinophils % % Basophils % % Neutrophils # (1.3-7.7) k/uL Lymphocytes # (1.0-4.8) k/uL Monocytes # (0-1.0) k/uL Eosinophils # (0-0.7) k/uL Basophils # (0-0.2) k/uL Sodium (137-145) mmol/L Potassium (3.5-5.1) mmol/L Chloride (98-107) mmol/L Carbon Dioxide (22-30) mmol/L Anion Gap mmol/L BUN (9-20) mg/dL Creatinine (0.66-1.25) mg/dL Est GFR (CKD-EPI)AfAm (>60 ml/min/1.73 sqM) Est GFR (CKD-EPI)NonAf (>60 ml/min/1.73 sqM) Glucose (74-99) mg/dL Plasma Lactic Acid Lamont 0.9 (0.7-2.0) mmol/L Calcium (8.4-10.2) mg/dL Total Bilirubin (0.2-1.3) mg/dL AST (17-59) U/L ALT (4-49) U/L Alkaline Phosphatase (38-126) U/L Total Protein (6.3-8.2) g/dL Albumin (3.5-5.0) g/dL Urine Color Urine Appearance (Clear) Urine pH (5.0-8.0) Ur Specific Emmons (1.001-1.035) Urine Protein (Negative) Urine Glucose (UA) (Negative) Urine Ketones (Negative) Urine Blood (Negative) Urine Nitrite (Negative) Urine Bilirubin (Negative) Urine Urobilinogen (<2.0) mg/dL Ur Leukocyte Esterase (Negative) Urine RBC (0-5) /hpf Urine WBC (0-5) /hpf Amorphous Sediment (None) /hpf Urine Bacteria (None) /hpf Hyaline Casts (0-2) /lpf Granular Casts (0) /lpf Urine Mucus (None) /hpf Disposition Clinical Impression: Abscess Disposition: ADMITTED IP TO THIS HOSP Condition: Good Referrals: Prasanna Saldaña MD [Primary Care Provider] - 1-2 days Time of Disposition: 01:15
[2023-07-20] MEDS ORDERED: NALOXONE 0.4 MG/ML 1 ML VIAL IV PRN (02:19)
[2023-07-20] MEDS ORDERED: ONDANSETRON 4 MG/2 ML VIAL IVP PRN (02:19)
[2023-07-20] MEDS ORDERED: DEXTROSE 50% SYRINGE 50 ML IVP PRN ×2 (02:21)
[2023-07-20] MEDS: SODIUM CHLORIDE 0.9% 1,000 ML IV SCH (04:19)
--- NOTE | 2023-07-20 04:33 | P.HPIM ---
History of Present Illness H&P Date: 07/20/23 Chief Complaint: right shoulder abscess 67 year old male with DM patient coming in due ot worsening right shoulder abscess, it started as a small pimple 3 weeks ago , however, progressed and started getting larger about a week ago , when his ddoc started him on bactrim , however it continued to worsen and started to drain foul smell and having fever. for which he decided to come in for evaluation. as it was not improving while on bactrim for the past week . deneis any nausea vomiting, abd pain , chest pain , SOB, URI symptoms , changes in bowel or urinary habits. patient reports that he is overall in good health and this has not happened to him before denies any tobacco smoking , illicit drugs or alcohol review of systems Pertinent positives as noted in HPI. All other systems were reviewed and are negative on exam Constitutional: No acute distress, conversant, pleasant Eyes: Anicteric sclerae, moist conjunctiva, Pupils equal round reactive to light ENMT: NC/AT Oropharynx clear, no erythema, or exudates Neck: Supple, no masses, or JVD No carotid bruits No thyromegaly Lungs: Clear to auscultation Clear to percussion Normal respiratory effort, no accessory muscle use Cardiovascular: Heart regular in rate and rhythm, No murmurs, gallops, or rubs No peripheral edema Abdominal: Soft Nontender, no guarding, rebound or rigidity Abdomen moving with respiration Normoactive bowel sounds Skin: large 10X10 cm painful swelling with erythema and induration , foul smelling drainage. over the back of his right shoulder. Extremities: No digital cyanosis No clubbing Pedal pulses intact and symmetrical Radial pulses intact and symmetrical No calf tenderness Psychiatric: Alert and oriented to person, place and time Appropriate affect fair judgement Neuro Muscles Strength 5/5 in all 4 extremities Sensation to light touch grossly present throughout Cranial nerves II-XII grossly intact Past Medical History Past Medical History: COPD, CVA/TIA, Diabetes Mellitus, Memory Impairment Additional Past Medical History / Comment(s): LISINOPRIL FOR KIDNEYS/DM. 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 History of Any Multi-Drug Resistant Organisms: None Reported Past Surgical History: Orthopedic Surgery Additional Past Surgical History / Comment(s): LEFT KNEE Past Anesthesia/Blood Transfusion Reactions: No Reported Reaction Additional Past Anesthesia/Blood Transfusion Reaction / Comment(s): PRONE TO VERTIGO Past Psychological History: No Psychological Hx Reported Smoking Status: Former smoker Past Alcohol Use History: None Reported Past Drug Use History: None Reported Medications and Allergies Home Medications Medication Instructions Recorded Confirmed Type Insulin Aspart [NovoLOG] 20 units SQ TID-W/MEALS 10/07/22 10/07/22 History Insulin Glargine,Hum.rec.anlog 120 units SQ QAM 10/07/22 10/07/22 History [Suleman Barksdale] Meclizine [Antivert] 25 mg PO DIRECTED PRN 10/07/22 10/07/22 History Tirzepatide [Mounjaro] 2.5 mg SQ Q7D 10/07/22 10/07/22 History Tolterodine ER [Detrol LA] 4 mg PO HS 10/07/22 10/07/22 History lisinopriL [Zestril] 2.5 mg PO DAILY 10/07/22 10/07/22 History Allergies Allergy/AdvReac Type Severity Reaction Status Date / Time insulin lispro [From Humalog] AdvReac Diarrhea Verified 07/19/23 21:41 Physical Exam Vitals: Vital Signs Temp Pulse Resp BP Pulse Ox 07/20/23 04:16 86 19 124/73 97 07/20/23 01:38 97.5 F L 90 13 128/71 95 07/19/23 23:14 97.6 F 93 19 135/86 95 07/19/23 21:40 100.2 F H 106 H 20 168/77 96 Intake and Output 07/19/23 07/19/23 07/20/23 14:59 22:59 06:59 Other: Weight 131.995 kg Results CBC & Chem 7: 07/19/23 22:35 07/19/23 22:35 Labs: Abnormal Lab Results - Last 24 Hours (Table) 07/19/23 07/19/23 07/19/23 Range/Units 22:35 22:35 22:35 WBC 15.3 H (3.8-10.6) k/uL RBC 4.08 L (4.30-5.90) m/uL Hgb 11.7 L (13.0-17.5) gm/dL Hct 37.4 L (39.0-53.0) % Neutrophils # 13.4 H (1.3-7.7) k/uL Lymphocytes # 0.9 L (1.0-4.8) k/uL Sodium 134 L (137-145) mmol/L Chloride 110 H (98-107) mmol/L Carbon Dioxide 14 L (22-30) mmol/L BUN 36 H (9-20) mg/dL Creatinine 2.57 H (0.66-1.25) mg/dL Glucose 105 H (74-99) mg/dL Calcium 8.3 L (8.4-10.2) mg/dL ALT 52 H (4-49) U/L Alkaline Phosphatase 445 H (38-126) U/L Total Protein 6.0 L (6.3-8.2) g/dL Albumin 2.7 L (3.5-5.0) g/dL Urine Protein 2+ H (Negative) Urine Glucose (UA) 1+ H (Negative) Urine Blood Small H (Negative) Amorphous Sediment Few H (None) /hpf Urine Bacteria Rare H (None) /hpf Hyaline Casts 36 H (0-2) /lpf Urine Mucus Rare H (None) /hpf Assessment and Plan Assessment: 67 year old male with DM , coming in with draining abscess over his right shoulder , I discussed the case with ED doc and I accepted the admission for sepsis secondary to abscess. with anticipated length of stay > 2 midnights sepsis secondary to right shoulder abscess follow up cultures vanco dosing by pharmacy and zosyn 3.375 gm IVP q8 hr tylenol for fever general surgery consult pain control WBC 15 , tachycardia TRAVIS na 134, K 4.3 BUN 36, cr 2.5 avoid nephrotoxic meds monitor urine output hold lisinopril IVF hydration with normal saline DM insulin sliding scale hypertension hold lisinopril secondary to TRAVIS monitor blood pressure full code DVT PPX heparin sc tid
[2023-07-20 06:24] LABS: Glucose,Whole Blood 111 mg/dL (70-110)
[2023-07-20] MEDS: INSULIN ASPART (NovoLOG) 100 UNIT/ML VIAL SQ SCH (06:29)
[2023-07-20] MEDS: HYDROmorphone 0.5 MG/0.5 ML SYRINGE IVP PRN (08:30)
[2023-07-20] MEDS: HEPARIN SODIUM,PORCINE 5,000 UNIT/ML 1 ML VIAL SQ SCH (08:31)
--- NOTE | 2023-07-20 09:29 | P.GSCN ---
History of Present Illness Consult date: 07/20/23 Reason for Consult: Infected sebaceous cyst History of present illness: This a 67-year-old male who has a history of a chronic sebaceous cyst of his upper back. Patient states that the cyst was inflamed and increased greatly in size 3 days ago. Patient had spontaneous drainage. Patient states that the inflammation area has decreased significantly since 3 days ago. He is currently on IV antibiotic. Past Medical History Past Medical History: COPD, CVA/TIA, Diabetes Mellitus, Memory Impairment Additional Past Medical History / Comment(s): LISINOPRIL FOR KIDNEYS/DM. 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 History of Any Multi-Drug Resistant Organisms: None Reported Past Surgical History: Orthopedic Surgery Additional Past Surgical History / Comment(s): LEFT KNEE Past Anesthesia/Blood Transfusion Reactions: No Reported Reaction Additional Past Anesthesia/Blood Transfusion Reaction / Comm: PRONE TO VERTIGO Past Psychological History: No Psychological Hx Reported Smoking Status: Former smoker Past Alcohol Use History: None Reported Past Drug Use History: None Reported Medications and Allergies Home Medications Medication Instructions Recorded Confirmed Type Insulin Aspart [NovoLOG] 20 units SQ TID-W/MEALS 10/07/22 10/07/22 History Insulin Glargine,Hum.rec.anlog 120 units SQ QAM 10/07/22 10/07/22 History [Toujeo Solostar] Meclizine [Antivert] 25 mg PO DIRECTED PRN 10/07/22 10/07/22 History Tirzepatide [Mounjaro] 2.5 mg SQ Q7D 10/07/22 10/07/22 History Tolterodine ER [Detrol LA] 4 mg PO HS 10/07/22 10/07/22 History lisinopriL [Zestril] 2.5 mg PO DAILY 10/07/22 10/07/22 History Allergies Allergy/AdvReac Type Severity Reaction Status Date / Time insulin lispro [From Humalog] AdvReac Diarrhea Verified 07/19/23 21:41 Surgical - Exam Vital Signs Temp Pulse Resp BP Pulse Ox 100.2 F H 106 H 20 168/77 96 07/19/23 21:40 07/19/23 21:40 07/19/23 21:40 07/19/23 21:40 07/19/23 21:40 - General well developed, well nourished, no distress - Eyes PERRL - Integumentary There is an area of induration in the upper back measuring approximately 10 cm diameter. There is drainage of some purulent fluid. Results - Labs 07/19/23 22:35 07/19/23 22:35 Abnormal Lab Results - Last 24 Hours (Table) 07/19/23 07/19/23 07/19/23 Range/Units 22:35 22:35 22:35 WBC 15.3 H (3.8-10.6) k/uL RBC 4.08 L (4.30-5.90) m/uL Hgb 11.7 L (13.0-17.5) gm/dL Hct 37.4 L (39.0-53.0) % Neutrophils # 13.4 H (1.3-7.7) k/uL Lymphocytes # 0.9 L (1.0-4.8) k/uL Sodium 134 L (137-145) mmol/L Chloride 110 H (98-107) mmol/L Carbon Dioxide 14 L (22-30) mmol/L BUN 36 H (9-20) mg/dL Creatinine 2.57 H (0.66-1.25) mg/dL Glucose 105 H (74-99) mg/dL POC Glucose (mg/dL) (70-110) mg/dL Calcium 8.3 L (8.4-10.2) mg/dL ALT 52 H (4-49) U/L Alkaline Phosphatase 445 H (38-126) U/L Total Protein 6.0 L (6.3-8.2) g/dL Albumin 2.7 L (3.5-5.0) g/dL Urine Protein 2+ H (Negative) Urine Glucose (UA) 1+ H (Negative) Urine Blood Small H (Negative) Amorphous Sediment Few H (None) /hpf Urine Bacteria Rare H (None) /hpf Hyaline Casts 36 H (0-2) /lpf Urine Mucus Rare H (None) /hpf 07/20/23 Range/Units 06:22 WBC (3.8-10.6) k/uL RBC (4.30-5.90) m/uL Hgb (13.0-17.5) gm/dL Hct (39.0-53.0) % Neutrophils # (1.3-7.7) k/uL Lymphocytes # (1.0-4.8) k/uL Sodium (137-145) mmol/L Chloride (98-107) mmol/L Carbon Dioxide (22-30) mmol/L BUN (9-20) mg/dL Creatinine (0.66-1.25) mg/dL Glucose (74-99) mg/dL POC Glucose (mg/dL) 111 H (70-110) mg/dL Calcium (8.4-10.2) mg/dL ALT (4-49) U/L Alkaline Phosphatase (38-126) U/L Total Protein (6.3-8.2) g/dL Albumin (3.5-5.0) g/dL Urine Protein (Negative) Urine Glucose (UA) (Negative) Urine Blood (Negative) Amorphous Sediment (None) /hpf Urine Bacteria (None) /hpf Hyaline Casts (0-2) /lpf Urine Mucus (None) /hpf Diabetes panel 07/19/23 Range/Units 22:35 Sodium 134 L (137-145) mmol/L Potassium 4.3 (3.5-5.1) mmol/L Chloride 110 H (98-107) mmol/L Carbon Dioxide 14 L (22-30) mmol/L BUN 36 H (9-20) mg/dL Creatinine 2.57 H (0.66-1.25) mg/dL Glucose 105 H (74-99) mg/dL Calcium 8.3 L (8.4-10.2) mg/dL AST 41 (17-59) U/L ALT 52 H (4-49) U/L Alkaline Phosphatase 445 H (38-126) U/L Total Protein 6.0 L (6.3-8.2) g/dL Albumin 2.7 L (3.5-5.0) g/dL Calcium panel 07/19/23 Range/Units 22:35 Calcium 8.3 L (8.4-10.2) mg/dL Albumin 2.7 L (3.5-5.0) g/dL Pituitary panel 07/19/23 Range/Units 22:35 Sodium 134 L (137-145) mmol/L Potassium 4.3 (3.5-5.1) mmol/L Chloride 110 H (98-107) mmol/L Carbon Dioxide 14 L (22-30) mmol/L BUN 36 H (9-20) mg/dL Creatinine 2.57 H (0.66-1.25) mg/dL Glucose 105 H (74-99) mg/dL Calcium 8.3 L (8.4-10.2) mg/dL Adrenal panel 07/19/23 Range/Units 22:35 Sodium 134 L (137-145) mmol/L Potassium 4.3 (3.5-5.1) mmol/L Chloride 110 H (98-107) mmol/L Carbon Dioxide 14 L (22-30) mmol/L BUN 36 H (9-20) mg/dL Creatinine 2.57 H (0.66-1.25) mg/dL Glucose 105 H (74-99) mg/dL Calcium 8.3 L (8.4-10.2) mg/dL Total Bilirubin 0.5 (0.2-1.3) mg/dL AST 41 (17-59) U/L ALT 52 H (4-49) U/L Alkaline Phosphatase 445 H (38-126) U/L Total Protein 6.0 L (6.3-8.2) g/dL Albumin 2.7 L (3.5-5.0) g/dL Assessment and Plan Assessment: Infected sebaceous cyst. Patient has current drainage. Patient be observed. He may require incision and drainage if it does not improve. He'll be reassessed tomorrow.
[2023-07-20 11:39] LABS: Glucose,Whole Blood 196 mg/dL (70-110)
[2023-07-20] MEDS: PIPERACILLIN-TAZOBACTAM 3.375 GM in SODIUM CHLORIDE 0.9% 100 ML IVPB SCH (12:29)
[2023-07-20 16:49] LABS: Glucose,Whole Blood 168 mg/dL (70-110)
[2023-07-20] MEDS ORDERED: PANTOPRAZOLE 40 MG TABLET PO PRN (18:17)
[2023-07-20] MEDS: ACETAMINOPHEN TAB 325 MG TAB PO PRN (19:11)
[2023-07-20] MEDS: Tirzepatide [Mounjaro] 7.5 MG/0.5 ML Pen.Injctr SQ SCH (19:37)
[2023-07-20 20:32] LABS: Glucose,Whole Blood 169 mg/dL (70-110)
[2023-07-20] MEDS: OXYBUTYNIN 10 MG TAB.ER.24 PO SCH (21:17)
[2023-07-21 05:59] LABS: Glucose,Whole Blood 117 mg/dL (70-110)
[2023-07-21] MEDS: INSULIN DETEMIR (LEVEMIR) 100 UNIT/ML SYR SQ SCH (06:09)
[2023-07-21 08:52] LABS: BUN/Creat Ratio 12.92 Ratio (12.00-20.00); Calcium 8.4 mg/dL (8.7-10.3); Chloride 108 mmol/L (96-109); Glucose 108 mg/dL (70-110); Potassium 4.7 mmol/L (3.5-5.5); Sodium 137 mmol/L (135-145)
[2023-07-21 09:06] LABS: Basophils # (M) 0 X 10*3/uL (0.00-0.10); Eosinophils # (M) 0.13 X 10*3/uL (0.04-0.35); HCT 35.1 % (39.6-50.0); HGB 11.4 g/dL (13.0-17.0); Lymphocytes # (M) 0.67 X 10*3/uL (0.90-5.00); MCHC 32.5 g/dL (32.0-37.0); MCV 92.4 FL (80.0-97.0); Mean Platelet Volume 9.9 FL (9.5-12.2); Monocytes # (M) 0.53 X 10*3/uL (0.20-1.00); Myelocytes % 1 % (0-0); NRBC Per 100 WBC 0 X 10*3/uL (0.00-0.01); Neutrophils % (M) 89 %; Platelet Count 270 X 10*3/uL (140-440); RBC Morphology Normal (Normal); WBC 13.37 X 10*3/uL (4.50-10.00)
[2023-07-21 11:23] LABS: Glucose,Whole Blood 155 mg/dL (70-110)
[2023-07-21] MEDS: HYDROmorphone 1 MG/ML 1 ML SYRINGE IVP PRN (12:10)
[2023-07-21] MEDS: VANCOMYCIN 2,000 MG in SODIUM CHLORIDE 0.9% 500 ML 500 ML IVPB SCH (12:26)
--- NOTE | 2023-07-21 14:04 | P.PN ---
Subjective Progress Note Date: 07/21/23 Hospital course Patient is a 67-year-old male with a past medical history of diabetes mellitus who presents to the ED with a right shoulder abscess. Patient states that it initially started off as a small pimple 3 weeks ago. It then continued to worsen. Patient saw his primary care doctor who started him on Bactrim. The abscess continued to worsen. There was pus drainage from the abscess. Patient then decided to come into the hospital. In the ED patient met sepsis criteria. His labs showed creatinine 2.5. Patient admitted to the medicine service. Patient started on vancomycin and Zosyn. Patient seen by general surgery who is considering possible I&D. Patient is continue to have fevers. WBC is trending down. Renal function is improving. HPI Patient states that he took a shower this morning and he did not feel short of breath. His was also in the room. Physical exam General examination - Alert and Oriented 3 in NAD Heart - + S1S2 no murmurs Lungs - Clear to auscultation Skin: Abscess in his right upper back that is about 5 x 5 cm with pus drainage Abdomen soft NT ND +ve BS Extremities - No edema PARA PROFESSIONAL - Moving all 4 extremities spontaneously Psych - Calm and cooperative Right upper back abscess Sepsis on admission Follow-up on wound cultures Continue with vancomycin with pharmacy to dose Continue with Zosyn 3.375 g every 8 hours Tylenol as needed for fever General surgery considering I&D WBC improving Patient continued to have high-grade fevers Acute kidney injury likely due to Bactrim Improving Hold lisinopril IV fluids Diabetes mellitus Sliding scale insulin Continue with Levemir 60 units in the daytime. At home patient takes 110 units in the daytime. Titrate insulin as needed for better control Hypertension Holding lisinopril due to TRAVIS Monitor blood pressure DVT prophylaxis: Subcu heparin Objective - Vital Signs Vital signs: Vital Signs Temp 98.0 F 07/21/23 08:00 Pulse 90 07/21/23 08:00 Resp 18 07/21/23 08:00 BP 164/78 07/21/23 08:00 Pulse Ox 96 07/21/23 08:00 FiO2 Intake & Output 07/20/23 07/21/23 07/21/23 18:59 06:59 18:59 Intake Total 600 Balance 600 Intake: Oral 600 Other: Voiding Method Toilet Toilet # Voids 4 6 - Labs CBC & Chem 7: 04/22/24 04:13 07/21/23 04:13 Labs: Abnormal Lab Results - Last 24 Hours (Table) 07/20/23 07/20/23 07/21/23 Range/Units 16:48 20:30 04:13 WBC (4.50-10.00) X 10*3/uL RBC (4.40-5.60) X 10*6/uL Hgb (13.0-17.0) g/dL Hct (39.6-50.0) % RDW (11.5-14.5) % Neutrophils # (Manual) (1.80-7.70) X 10*3/uL Lymphocytes # (Manual) (0.90-5.00) X 10*3/uL Carbon Dioxide (21.6-31.8) mmol/L Anion Gap (4.00-12.00) mmol/L BUN (9.0-27.0) mg/dL Creatinine (0.6-1.5) mg/dL Est GFR (CKD-EPI) (>=60) POC Glucose (mg/dL) 168 H 169 H (70-110) mg/dL Hemoglobin A1c 9.7 H (<=6.0) % Calcium (8.7-10.3) mg/dL 07/21/23 07/21/23 07/21/23 Range/Units 04:13 04:13 05:58 WBC 13.37 H (4.50-10.00) X 10*3/uL RBC 3.80 L (4.40-5.60) X 10*6/uL Hgb 11.4 L (13.0-17.0) g/dL Hct 35.1 L (39.6-50.0) % RDW 15.0 H (11.5-14.5) % Neutrophils # (Manual) 11.90 H (1.80-7.70) X 10*3/uL Lymphocytes # (Manual) 0.67 L (0.90-5.00) X 10*3/uL Carbon Dioxide 16.0 L (21.6-31.8) mmol/L Anion Gap 13.00 H (4.00-12.00) mmol/L BUN 31.0 H (9.0-27.0) mg/dL Creatinine 2.4 H (0.6-1.5) mg/dL Est GFR (CKD-EPI) 29 L (>=60) POC Glucose (mg/dL) 117 H (70-110) mg/dL Hemoglobin A1c (<=6.0) % Calcium 8.4 L (8.7-10.3) mg/dL 07/21/23 Range/Units 11:21 WBC (4.50-10.00) X 10*3/uL RBC (4.40-5.60) X 10*6/uL Hgb (13.0-17.0) g/dL Hct (39.6-50.0) % RDW (11.5-14.5) % Neutrophils # (Manual) (1.80-7.70) X 10*3/uL Lymphocytes # (Manual) (0.90-5.00) X 10*3/uL Carbon Dioxide (21.6-31.8) mmol/L Anion Gap (4.00-12.00) mmol/L BUN (9.0-27.0) mg/dL Creatinine (0.6-1.5) mg/dL Est GFR (CKD-EPI) (>=60) POC Glucose (mg/dL) 155 H (70-110) mg/dL Hemoglobin A1c (<=6.0) % Calcium (8.7-10.3) mg/dL Microbiology - Last 24 Hours (Table) 07/19/23 22:35 Blood Culture - Preliminary Blood 07/19/23 22:45 Blood Culture - Preliminary Blood 07/20/23 01:04 Gram Stain - Preliminary Back Wound Culture - Preliminary
[2023-07-21 15:10] VITALS: BMI 40.6
[2023-07-21 16:54] LABS: Glucose,Whole Blood 104 mg/dL (70-110)
--- NOTE | 2023-07-21 17:42 | P.PN ---
Subjective Progress Note Date: 07/21/23 CHIEF COMPLAINT: Infected sebaceous cyst HISTORY OF PRESENT ILLNESS: Patient has a history of chronic sebaceous cyst left upper back. He is having some drainage from the cyst. Patient continues to have pain in the area as well as inflammation and redness. Patient had a low- grade temp yesterday of 100.9. WBC is down from 15-13 PHYSICAL EXAM: VITAL SIGNS: Reviewed. GENERAL: Well-developed in no acute distress. ABDOMEN: Soft. Nondistended. Nontender. Umbilical hernia soft nontender reducible NEUROLOGIC: Alert and oriented. Cranial nerves II through XII grossly intact. Skin: Upper back area of induration and erythema with small amount of purulent drainage. Tender with palpation ASSESSMENT: 1. Infected sebaceous cyst with drainage PLAN: -Possible incision and drainage at bedside later today by Dr. Patrick -Continue supportive care -Continue warm compresses -Continue antibiotics Physician Plant Operations Coordinator note has been reviewed by physician. Signing provider agrees with the documented findings, assessment, and plan of care. Objective - Vital Signs Vital signs: Vital Signs Temp 98.8 F 07/21/23 14:00 Pulse 83 07/21/23 14:00 Resp 17 07/21/23 14:00 BP 184/90 07/21/23 14:00 Pulse Ox 95 07/21/23 14:00 FiO2 Intake & Output 07/20/23 07/21/23 07/21/23 18:59 06:59 18:59 Intake Total 900 Balance 900 Weight 131.995 kg Intake: Oral 900 Other: Voiding Method Toilet Toilet # Voids 4 6 3 - Labs CBC & Chem 7: 07/21/23 04:13 07/21/23 04:13 Labs: Abnormal Lab Results - Last 24 Hours (Table) 07/20/23 07/21/23 07/21/23 Range/Units 20:30 04:13 04:13 WBC 13.37 H (4.50-10.00) X 10*3/uL RBC 3.80 L (4.40-5.60) X 10*6/uL Hgb 11.4 L (13.0-17.0) g/dL Hct 35.1 L (39.6-50.0) % RDW 15.0 H (11.5-14.5) % Neutrophils # (Manual) 11.90 H (1.80-7.70) X 10*3/uL Lymphocytes # (Manual) 0.67 L (0.90-5.00) X 10*3/uL Carbon Dioxide (21.6-31.8) mmol/L Anion Gap (4.00-12.00) mmol/L BUN (9.0-27.0) mg/dL Creatinine (0.6-1.5) mg/dL Est GFR (CKD-EPI) (>=60) POC Glucose (mg/dL) 169 H (70-110) mg/dL Hemoglobin A1c 9.7 H (<=6.0) % Calcium (8.7-10.3) mg/dL 07/21/23 07/21/23 07/21/23 Range/Units 04:13 05:58 11:21 WBC (4.50-10.00) X 10*3/uL RBC (4.40-5.60) X 10*6/uL Hgb (13.0-17.0) g/dL Hct (39.6-50.0) % RDW (11.5-14.5) % Neutrophils # (Manual) (1.80-7.70) X 10*3/uL Lymphocytes # (Manual) (0.90-5.00) X 10*3/uL Carbon Dioxide 16.0 L (21.6-31.8) mmol/L Anion Gap 13.00 H (4.00-12.00) mmol/L BUN 31.0 H (9.0-27.0) mg/dL Creatinine 2.4 H (0.6-1.5) mg/dL Est GFR (CKD-EPI) 29 L (>=60) POC Glucose (mg/dL) 117 H 155 H (70-110) mg/dL Hemoglobin A1c (<=6.0) % Calcium 8.4 L (8.7-10.3) mg/dL Microbiology - Last 24 Hours (Table) 07/19/23 22:35 Blood Culture - Preliminary Blood 07/19/23 22:45 Blood Culture - Preliminary Blood 07/20/23 01:04 Gram Stain - Preliminary Back Wound Culture - Preliminary
[2023-07-21 20:36] LABS: Glucose,Whole Blood 120 mg/dL (70-110)
--- NOTE | 2023-07-21 23:29 | P.CONS ---
History of Present Illness - Reason for Consult Consult date: 07/21/23 - History of Present Illness Patient is a 67-year-old male with a past medical history for diabetes mellitus CVA TIA COPD mention he did have a lump to the right upper back area for a long time recently did have a slight progression for the patient has been evaluated by his primary care physician mention he did have an injection in the area and has been treated with the Bactrim however the patient noticed to have increasing swelling redness and foul-smelling drainage to the right upper back area patient has been complaining of pain describing it to be with throbbing moderate intensity without radiation with associated swelling redness and foul- smelling drainage patient did have a low-grade fever 100.2 on arrival and a temperature of 100.9 last night patient was not tachycardic hypotensive or hypoxic he did have a white count of 15.3 with a left shift BUN/creatinine has been mildly elevated ALT was mildly elevated urine has been negative blood and local culture has been obtained and the patient was started on vancomycin and Zosyn infectious disease was consulted for further management of antibiotic therapy Past Medical History Past Medical History: COPD, CVA/TIA, Diabetes Mellitus, Memory Impairment Additional Past Medical History / Comment(s): LISINOPRIL FOR KIDNEYS/DM. 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 History of Any Multi-Drug Resistant Organisms: None Reported Past Surgical History: Orthopedic Surgery Additional Past Surgical History / Comment(s): LEFT KNEE Past Anesthesia/Blood Transfusion Reactions: No Reported Reaction Additional Past Anesthesia/Blood Transfusion Reaction / Comm: PRONE TO VERTIGO Past Psychological History: No Psychological Hx Reported Smoking Status: Former smoker Past Alcohol Use History: None Reported Past Drug Use History: None Reported Medications and Allergies Home Medications Medication Instructions Recorded Confirmed Type Tolterodine ER [Detrol LA] 4 mg PO HS 10/07/22 07/20/23 History Insulin Aspart [NovoLOG Flexpen] 20 units SQ AC-TID 07/20/23 07/20/23 History Insulin Glargine,Hum.rec.anlog 110 units SQ DAILY 07/20/23 07/20/23 History [Toujeo Max Solostar] L.acidoph,Paracasei, B.lactis 1 cap PO DAILY 07/20/23 07/20/23 History [Probiotic] Losartan [Cozaar] 50 mg PO DAILY 07/20/23 07/20/23 History Omeprazole 20 mg PO DAILY PRN 07/20/23 07/20/23 History Sulfamethox-Tmp 800-160Mg [Bactrim 1 tab PO BID 07/20/23 07/20/23 History DS 800-160 mg] Tirzepatide [Mounjaro] 7.5 mg SQ CATES 07/20/23 07/20/23 History Allergies Allergy/AdvReac Type Severity Reaction Status Date / Time insulin lispro [From Humalog] AdvReac Diarrhea Verified 07/20/23 10:48 Physical Exam Vitals: Vital Signs Temp Pulse Resp BP Pulse Ox 07/21/23 08:00 98.0 F 90 18 164/78 96 07/21/23 02:06 98.8 F 84 17 161/85 96 07/20/23 19:08 100.9 F H 92 19 165/88 95 07/20/23 13:29 99.5 F 97 18 167/85 96 Intake and Output 07/20/23 07/21/23 07/21/23 22:59 06:59 14:59 Intake Total 300 Balance 300 Intake: Oral 300 Other: Voiding Method Toilet Toilet # Voids 4 6 Results CBC & Chem 7: 07/21/23 04:13 07/21/23 04:13 Labs: Abnormal Lab Results - Last 24 Hours (Table) 07/20/23 07/20/23 07/21/23 Range/Units 16:48 20:30 04:13 WBC (4.50-10.00) X 10*3/uL RBC (4.40-5.60) X 10*6/uL Hgb (13.0-17.0) g/dL Hct (39.6-50.0) % RDW (11.5-14.5) % Neutrophils # (Manual) (1.80-7.70) X 10*3/uL Lymphocytes # (Manual) (0.90-5.00) X 10*3/uL Carbon Dioxide (21.6-31.8) mmol/L Anion Gap (4.00-12.00) mmol/L BUN (9.0-27.0) mg/dL Creatinine (0.6-1.5) mg/dL Est GFR (CKD-EPI) (>=60) POC Glucose (mg/dL) 168 H 169 H (70-110) mg/dL Hemoglobin A1c 9.7 H (<=6.0) % Calcium (8.7-10.3) mg/dL 07/21/23 07/21/23 07/21/23 Range/Units 04:13 04:13 05:58 WBC 13.37 H (4.50-10.00) X 10*3/uL RBC 3.80 L (4.40-5.60) X 10*6/uL Hgb 11.4 L (13.0-17.0) g/dL Hct 35.1 L (39.6-50.0) % RDW 15.0 H (11.5-14.5) % Neutrophils # (Manual) 11.90 H (1.80-7.70) X 10*3/uL Lymphocytes # (Manual) 0.67 L (0.90-5.00) X 10*3/uL Carbon Dioxide 16.0 L (21.6-31.8) mmol/L Anion Gap 13.00 H (4.00-12.00) mmol/L BUN 31.0 H (9.0-27.0) mg/dL Creatinine 2.4 H (0.6-1.5) mg/dL Est GFR (CKD-EPI) 29 L (>=60) POC Glucose (mg/dL) 117 H (70-110) mg/dL Hemoglobin A1c (<=6.0) % Calcium 8.4 L (8.7-10.3) mg/dL 07/21/23 Range/Units 11:21 WBC (4.50-10.00) X 10*3/uL RBC (4.40-5.60) X 10*6/uL Hgb (13.0-17.0) g/dL Hct (39.6-50.0) % RDW (11.5-14.5) % Neutrophils # (Manual) (1.80-7.70) X 10*3/uL Lymphocytes # (Manual) (0.90-5.00) X 10*3/uL Carbon Dioxide (21.6-31.8) mmol/L Anion Gap (4.00-12.00) mmol/L BUN (9.0-27.0) mg/dL Creatinine (0.6-1.5) mg/dL Est GFR (CKD-EPI) (>=60) POC Glucose (mg/dL) 155 H (70-110) mg/dL Hemoglobin A1c (<=6.0) % Calcium (8.7-10.3) mg/dL Microbiology - Last 24 Hours (Table) 07/20/23 01:04 Gram Stain - Preliminary Back Wound Culture - Preliminary Assessment and Plan Plan: 1patient presented to hospital with sepsis in this patient who did have a fever elevated white count source is likely right upper back infected sebaceous cyst failing outpatient Bactrim DS therapy 2-patient did have elevated creatinine could be related to recent outpatient Bactrim DS use, however vancomycin and Zosyn combination will put him at high risk of nephrotoxicity 3-patient would benefit from surgical excision of this infected cyst and deep culture 4-we will continue with vancomycin while watching his kidney function closely however discontinue Zosyn and add Unasyn for gram-negative coverage We will follow on clinical condition and cultures to further adjust medication if needed Thank you for this consultation we will follow the patient along with you Dictation was produced using [employer] dictation software. please excuse any grammatical, word or spelling errors. Time with Patient: Greater than 30
[2023-07-22] MEDS ORDERED: VANCOMYCIN 2,000 MG in SODIUM CHLORIDE 0.9% 500 ML 500 ML IVPB SCH (01:00)
[2023-07-22 05:14] LABS: Glucose,Whole Blood 85 mg/dL (70-110)
[2023-07-22 05:59] LABS: African American GFR (CKD) 43 (>60 ml/min/1.73 sqM); Anion Gap 8 mmol/L; Blood Urea Nitrogen 25 mg/dL (9-20); Calcium 8.2 mg/dL (8.4-10.2); Carbon Dioxide 18 mmol/L (22-30); Chloride 112 mmol/L (98-107); Glucose 81 mg/dL (74-99); Non-African American GFR(CKD) 37 (>60 ml/min/1.73 sqM); Potassium 4.5 mmol/L (3.5-5.1); Sodium 138 mmol/L (137-145)
--- NOTE | 2023-07-22 08:16 | P.PN ---
Subjective Progress Note Date: 07/22/23 67-year-old male with a past medical history of diabetes mellitus, COPD, h/o CVA/TIA who presents to the ED with a right shoulder abscess. Patient states that it initially started off as a small pimple 3 weeks ago. It then continued to worsen. Patient saw his primary care doctor who started him on Bactrim. The abscess continued to worsen. There was pus drainage from the abscess. Patient then decided to come into the hospital. In the ED patient met sepsis criteria. BP 168/77, HR 106, T 100.2F, RR 20, 96% on RA. CBC, CMP performed significant for WBC 15.3, Hg 11.7, Hct 37.4, Na 134, Cl 110, bicarb 14, BUN 36, Cr 2.57, glu 105, Ca 8.3, ALT 52, alk phos 445, alb 2.7. UA 2+ protein, small blood, negative LE or nitrite. US showed fluid collection 2.2 x 1.2 x 1.8 cm. Patient admitted to the medicine service. Patient started on vancomycin and Zosyn. Patient seen by general surgery, underwent bedside I&D on 07/20. 07/21 Patient was seen and examined. Reports well controlled pain in the right shoulder.BMP Cl 112, bicarb 18, BUN 25, Cr 1.86, Ca 8.2. General: non toxic, no distress, appears at stated age Derm: warm, dry Head: atraumatic, normocephalic, symmetric Eyes: EOMI, no lid lag, anicteric sclera Mouth: no lip lesion, mucus membranes moist Cardiovascular: S1S2 reg, no murmur Lungs: CTA bilateral, no rhonchi, no rales , no accessory muscle use Ext: no gross muscle atrophy, no edema, no contractures, R shoulder dressing c/d/i Neuro: no focal neuro deficits Psych: Alert, oriented, appropriate affect Based on my assessment of this patient, this patient meets a high complexity level of care. Patient has an acute diagnosis of sepsis related to abscess that poses a threat to life or bodily function. Sepsis related to right back abscess: Vancomycin dosed per pharmacy. Follow I&D WCx. Monitor renal function and vancomycin tough for toxicity given CKD. ID on board. TRAVIS on CKD: Worsened due to Bactrim. Hold Losartan. Improving with IV hydration. Hypertension: Start Amlodipine 10 mg PO QD. Diabetes mellitus: Levemir 60 units QD. ISS. Accuchecks ACHS. Hypoglycemic prec autions. CODE STATUS: FULL CODE. DVT Prophylaxis: Heparin GI Prophylaxis: Protonix PO Designated medical POA if patient is not able to make medical decisions for themselves: I have reviewed the following php consultant notes: ID, surgery. I have reviewed the results of the following tests: BMP. I have ordered the following tests: BMP for tomorrow morning. I have discussed the care of this patient with the following independent historian: I have independently interpreted the following test below: I have discussed the management of this patient with the following physician: Objective - Vital Signs Vital signs: Vital Signs Temp 98.8 F 07/22/23 01:39 Pulse 78 07/22/23 01:39 Resp 18 07/22/23 01:39 BP 157/77 07/22/23 01:39 Pulse Ox 97 07/22/23 01:39 FiO2 Intake & Output 07/21/23 07/22/23 07/22/23 18:59 06:59 18:59 Intake Total 900 Balance 900 Weight 131.995 kg Intake: Oral 900 Other: Voiding Method Toilet Toilet # Voids 3 2 - Labs CBC & Chem 7: 07/21/23 04:13 07/22/23 04:07 Labs: Abnormal Lab Results - Last 24 Hours (Table) 07/21/23 07/21/23 07/21/23 Range/Units 04:13 04:13 04:13 WBC 13.37 H (4.50-10.00) X 10*3/uL RBC 3.80 L (4.40-5.60) X 10*6/uL Hgb 11.4 L (13.0-17.0) g/dL Hct 35.1 L (39.6-50.0) % RDW 15.0 H (11.5-14.5) % Neutrophils # (Manual) 11.90 H (1.80-7.70) X 10*3/uL Lymphocytes # (Manual) 0.67 L (0.90-5.00) X 10*3/uL Chloride (98-107) mmol/L Carbon Dioxide 16.0 L (21.6-31.8) mmol/L Anion Gap 13.00 H (4.00-12.00) mmol/L BUN 31.0 H (9.0-27.0) mg/dL Creatinine 2.4 H (0.6-1.5) mg/dL Est GFR (CKD-EPI) 29 L (>=60) POC Glucose (mg/dL) (70-110) mg/dL Hemoglobin A1c 9.7 H (<=6.0) % Calcium 8.4 L (8.7-10.3) mg/dL 07/21/23 07/21/23 07/22/23 Range/Units 11:21 20:34 04:07 WBC (4.50-10.00) X 10*3/uL RBC (4.40-5.60) X 10*6/uL Hgb (13.0-17.0) g/dL Hct (39.6-50.0) % RDW (11.5-14.5) % Neutrophils # (Manual) (1.80-7.70) X 10*3/uL Lymphocytes # (Manual) (0.90-5.00) X 10*3/uL Chloride 112 H (98-107) mmol/L Carbon Dioxide 18 L (21.6-31.8) mmol/L Anion Gap (4.00-12.00) mmol/L BUN 25 H (9.0-27.0) mg/dL Creatinine 1.86 H (0.6-1.5) mg/dL Est GFR (CKD-EPI) (>=60) POC Glucose (mg/dL) 155 H 120 H (70-110) mg/dL Hemoglobin A1c (<=6.0) % Calcium 8.2 L (8.7-10.3) mg/dL Microbiology - Last 24 Hours (Table) 07/19/23 22:35 Blood Culture - Preliminary Blood 07/19/23 22:45 Blood Culture - Preliminary Blood 07/20/23 01:04 Gram Stain - Preliminary Back Wound Culture - Preliminary
[2023-07-22] MEDS: amLODIPine 10 MG TAB PO SCH (08:21)
[2023-07-22 09:14] LABS: HCT 34.1 % (39.6-50.0); HGB 10.7 g/dL (13.0-17.0); MCH 29.4 pg (27.0-32.0); MCHC 31.4 g/dL (32.0-37.0); MCV 93.7 FL (80.0-97.0); Mean Platelet Volume 9.7 FL (9.5-12.2); NRBC Per 100 WBC 0 X 10*3/uL (0.00-0.01); Neutrophils % (M) 80 %; Platelet Count 288 X 10*3/uL (140-440); RBC 3.64 X 10*6/uL (4.40-5.60); RDW 15.2 % (11.5-14.5); WBC 9.89 X 10*3/uL (4.50-10.00)
[2023-07-22 09:22] LABS: Lymphocytes # (M) 0.79 X 10*3/uL (0.90-5.00); Metamyelocytes % 3 % (0-0); Monocytes # (M) 0.49 X 10*3/uL (0.20-1.00); Neutrophils # (M) 7.91 X 10*3/uL (1.80-7.70); RBC Morphology Normal (Normal)
--- NOTE | 2023-07-22 10:05 | US ---
EXAMINATION TYPE: US abdomen limited DATE OF EXAM: 07/22/2023 COMPARISON: NM, US, CT 2023 CLINICAL INDICATION: Male, 67 years old with history of elevated LFTs; Elevated LFTs. TECHNIQUE: Multiple sonographic images of the right upper quadrant are obtained. 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 Pancreas: Not well seen. Liver: Enlarged. Very coarse in echotexture. Gallbladder: Hydropic measuring 12.8 cm in length. *Echogenic material seen within: 8.2 x 4.0 x 3. 0 cm Evidence for sonographic Saini's sign: No CBD: Obscured Right Kidney: *Enlarged. No hydronephrosis or masses seen IMPRESSION: Hepatomegaly with underlying coarse echo appearance throughout the liver suggesting hepatic steatosis . Masslike debris within the gallbladder lumen may reflect sludge ball. Borderline gallbladder wall t hickening.
[2023-07-22 11:56] LABS: Glucose,Whole Blood 158 mg/dL (70-110)
--- NOTE | 2023-07-22 15:48 | P.PN ---
Subjective Progress Note Date: 07/22/23 CHIEF COMPLAINT: Infected sebaceous cyst HISTORY OF PRESENT ILLNESS: Patient has a history of chronic sebaceous cyst left upper back. Patient is status post bedside I&D by Dr. Patrick yesterday. Patient does report decrease in pain and pressure at the site. Still has some redness. Still draining. Afebrile. WBC 9.89 PHYSICAL EXAM: VITAL SIGNS: Reviewed. GENERAL: Well-developed in no acute distress. ABDOMEN: Soft. Nondistended. Nontender. Umbilical hernia soft nontender reducible NEUROLOGIC: Alert and oriented. Cranial nerves II through XII grossly intact. Skin: Area of cyst is softer. Purulent drainage still noted. Dark Erythema about the same ASSESSMENT: 1. Infected sebaceous cyst with drainage status post bedside incision and drainage PLAN: -Continue supportive care -Recommend daily showers -Continue antibiotics Physician Superintendent Division note has been reviewed by physician. Signing provider agrees with the documented findings, assessment, and plan of care. Objective - Vital Signs Vital signs: Vital Signs Temp 98.1 F 07/22/23 07:37 Pulse 83 07/22/23 07:37 Resp 16 07/22/23 07:37 BP 177/72 07/22/23 07:37 Pulse Ox 95 07/22/23 07:37 FiO2 Intake & Output 07/21/23 07/22/23 07/22/23 18:59 06:59 18:59 Intake Total 900 Balance 900 Weight 131.995 kg Intake: Oral 900 Other: Voiding Method Toilet Toilet # Voids 3 2 1 - Labs CBC & Chem 7: 07/22/23 04:07 07/22/23 04:07 Labs: Abnormal Lab Results - Last 24 Hours (Table) 07/21/23 07/22/23 07/22/23 Range/Units 20:34 04:07 04:07 RBC 3.64 L (4.40-5.60) X 10*6/uL Hgb 10.7 L (13.0-17.0) g/dL Hct 34.1 L (39.6-50.0) % MCHC 31.4 L (32.0-37.0) g/dL RDW 15.2 H (11.5-14.5) % Lymphocytes # (Manual) 0.79 L (0.90-5.00) X 10*3/uL Chloride 112 H (98-107) mmol/L Carbon Dioxide 18 L (22-30) mmol/L BUN 25 H (9-20) mg/dL Creatinine 1.86 H (0.66-1.25) mg/dL POC Glucose (mg/dL) 120 H (70-110) mg/dL Calcium 8.2 L (8.4-10.2) mg/dL 07/22/23 Range/Units 11:54 RBC (4.40-5.60) X 10*6/uL Hgb (13.0-17.0) g/dL Hct (39.6-50.0) % MCHC (32.0-37.0) g/dL RDW (11.5-14.5) % Lymphocytes # (Manual) (0.90-5.00) X 10*3/uL Chloride (98-107) mmol/L Carbon Dioxide (22-30) mmol/L BUN (9-20) mg/dL Creatinine (0.66-1.25) mg/dL POC Glucose (mg/dL) 158 H (70-110) mg/dL Calcium (8.4-10.2) mg/dL Microbiology - Last 24 Hours (Table) 07/19/23 22:35 Blood Culture - Preliminary Blood 07/19/23 22:45 Blood Culture - Preliminary Blood 07/20/23 01:04 Gram Stain - Final Back Wound Culture - Final
[2023-07-22 16:46] LABS: Glucose,Whole Blood 117 mg/dL (70-110)
[2023-07-22 21:05] LABS: Glucose,Whole Blood 166 mg/dL (70-110)
[2023-07-23 05:40] LABS: Glucose,Whole Blood 137 mg/dL (70-110)
[2023-07-23 06:40] LABS: African American GFR (CKD) 57 (>60 ml/min/1.73 sqM); Anion Gap 9 mmol/L; Blood Urea Nitrogen 24 mg/dL (9-20); Calcium 8.4 mg/dL (8.4-10.2); Carbon Dioxide 18 mmol/L (22-30); Chloride 111 mmol/L (98-107); Glucose 141 mg/dL (74-99); Non-African American GFR(CKD) 49 (>60 ml/min/1.73 sqM); Potassium 4.8 mmol/L (3.5-5.1); Sodium 138 mmol/L (137-145)
[2023-07-23 06:42] LABS: African American GFR (CKD) 56 (>60 ml/min/1.73 sqM); Non-African American GFR(CKD) 48 (>60 ml/min/1.73 sqM)
--- NOTE | 2023-07-23 09:36 | CDI ---
Documentation Clarification Form Date: 07/23/2023 09:14:14 AM From: Janey Altamirano RN,CCDS Phone: [phone] Admit Date: 07/20/2023 04:52:00 AM Patient Name: Anthony Barnes V Visit Number: [id number] Discharge Date: ATTENTION: The Clinical Documentation Specialists (CDI) and [facility] Coding Staff appreciate your assistance in clarifying documentation. Please respond to the clarification below the line at the bottom and electronically sign. The CDI & [facility] Coding staff will review the response and follow-up if needed. Please note: Queries are made part of the Legal Health Record. If you have any questions, please contact the author of this message via ITS. Dr. Jenn Corea Conflicting documentation has been found in the medical record. As attending physician, please provide clarification. H/P and subsequent progress notes: right shoulder abscess. 07/19 Surgical-Consult progress note: Infected sebaceous cyst. Patient has current drainage. 07/20 ID Consult and subsequent progress notes: patient presented to hospital with sepsis in this patient who did have a fever elevated white count source is likely right upper back infected sebaceous cyst failing outpatient Bactrim DS therapy. History/Risk Factors: COPD, CVA/TIA, Diabetes Mellitus, Memory Impairment, Former smoker Clinical Indicators: 67-year-old male has a history of a chronic sebaceous cyst of his upper back. Patient states that the inflammation area has increasing in size. He was treated outpatient with Bactrim. 168/77 106 20 100.2 96% RA Labs: WBC15.3 Na 134, BUN 35, Cr 2.57, GFR 25 Treatment: Bedside I&D .9NS @ @130MLS/HR 07/18-07/19 ,9NS 2,000 ML Bolus 07/18 Zosyn 3.375 MG IVPB Q 12 HRS 07/19-07/20 Vancomycin 2,000 MG IVPB Once 07/18-07/22(PTD) Please clarify which diagnosis is most appropriate: [ x] Sepsis due to right upper back infected sebaceous cyst [ ] Sepsis due to right shoulder abscess. [ ] Other (please specify) [ ] Unable to determine (Template Last Revised: May 2020) MTDD
[2023-07-23 11:15] LABS: Glucose,Whole Blood 179 mg/dL (70-110)
--- NOTE | 2023-07-23 12:03 | P.PN ---
Subjective Progress Note Date: 07/22/23 Principal diagnosis: Reason for follow-up is right upper back abscess Patient is a 67-year-old male with a past medical history for diabetes mellitus CVA TIA COPD mention he did have a lump to the right upper back area for a long time recently did have increasing swelling and redness failing outpatient Bactrim DS therapy presented to the hospital with infected sebaceous cyst patient did have a bedside drainage by surgery. On today's evaluation that is 07/22/2023, patient has been afebrile, patient is breathing comfortably and is currently on room air, patient denies having any significant cough no chest pain shortness of breath, patient denies nausea vomiting or diarrhea and no abdominal pain, pain to the right upper back area slightly decreased in intensity. Patient white count is down to 9.89, creatinine is 1.86 cultures are pending Objective - Vital Signs Vital signs: Vital Signs Temp 98.1 F 07/22/23 07:37 Pulse 83 07/22/23 07:37 Resp 16 07/22/23 07:37 BP 177/72 07/22/23 07:37 Pulse Ox 95 07/22/23 07:37 FiO2 Intake & Output 07/21/23 07/22/23 07/22/23 18:59 06:59 18:59 Intake Total 900 Balance 900 Weight 131.995 kg Intake: Oral 900 Other: Voiding Method Toilet Toilet # Voids 3 2 1 - Exam GENERAL DESCRIPTION: An elderly male Up in the chair in no distress RESPIRATORY SYSTEM: Unlabored breathing , decreased breath sounds at bases HEART: S1 S2 regular rate and rhythm , ABDOMEN: Soft , no tenderness Upper back wound is currently dressed - Labs CBC & Chem 7: 07/22/23 04:07 07/23/23 04:06 Labs: Abnormal Lab Results - Last 24 Hours (Table) 07/21/23 07/22/23 07/22/23 Range/Units 20:34 04:07 04:07 RBC 3.64 L (4.40-5.60) X 10*6/uL Hgb 10.7 L (13.0-17.0) g/dL Hct 34.1 L (39.6-50.0) % MCHC 31.4 L (32.0-37.0) g/dL RDW 15.2 H (11.5-14.5) % Neutrophils # (Manual) 7.91 H (1.80-7.70) X 10*3/uL Lymphocytes # (Manual) 0.79 L (0.90-5.00) X 10*3/uL Chloride 112 H (98-107) mmol/L Carbon Dioxide 18 L (22-30) mmol/L BUN 25 H (9-20) mg/dL Creatinine 1.86 H (0.66-1.25) mg/dL POC Glucose (mg/dL) 120 H (70-110) mg/dL Calcium 8.2 L (8.4-10.2) mg/dL 07/22/23 Range/Units 11:54 RBC (4.40-5.60) X 10*6/uL Hgb (13.0-17.0) g/dL Hct (39.6-50.0) % MCHC (32.0-37.0) g/dL RDW (11.5-14.5) % Neutrophils # (Manual) (1.80-7.70) X 10*3/uL Lymphocytes # (Manual) (0.90-5.00) X 10*3/uL Chloride (98-107) mmol/L Carbon Dioxide (22-30) mmol/L BUN (9-20) mg/dL Creatinine (0.66-1.25) mg/dL POC Glucose (mg/dL) 158 H (70-110) mg/dL Calcium (8.4-10.2) mg/dL Microbiology - Last 24 Hours (Table) 07/19/23 22:35 Blood Culture - Preliminary Blood 07/19/23 22:45 Blood Culture - Preliminary Blood 07/20/23 01:04 Gram Stain - Final Back Wound Culture - Final Assessment and Plan (1) Abscess Current Visit: Yes Status: Acute Code(s): L02.91 - CUTANEOUS ABSCESS, UNSPECIFIED SNOMED Code(s): 480945004 Plan: 1patient presented to hospital with sepsis in this patient who did have a fever elevated white count source is likely right upper back infected sebaceous cyst failing outpatient Bactrim DS therapy 2-patient did have elevated creatinine could be related to recent outpatient Bactrim DS use, however vancomycin and Zosyn combination will put him at high risk of nephrotoxicity, Zosyn was discontinued 3-patient is status post bedside I&D 4-we will continue with vancomycin while watching his kidney function closely awaiting culture to finalize to determine discharge antibiotics Dictation was produced using [employer] dictation software. please excuse any grammatical, word or spelling errors. Time with Patient: Less than 30
--- NOTE | 2023-07-23 12:04 | P.PN ---
Subjective Progress Note Date: 07/23/23 Principal diagnosis: Reason for follow-up is right upper back abscess Patient is a 67-year-old male with a past medical history for diabetes mellitus CVA TIA COPD mention he did have a lump to the right upper back area for a long time recently did have increasing swelling and redness failing outpatient Bactrim DS therapy presented to the hospital with infected sebaceous cyst patient did have a bedside drainage by surgery. On today's evaluation that is 07/23/2023,the patient denies any fever or any chills, patient is breathing comfortably on room air, the patient denies chest pain shortness of breath and no significant cough, patient denies abdominal pain, no nausea vomiting or diarrhea. Patient mention improvement to the discomfort to the upper back area however still having significant drainage. No CBC was done today creatinine is 1.46 culture has been negative so far Objective - Vital Signs Vital signs: Vital Signs Temp 98.5 F 07/23/23 02:05 Pulse 83 07/23/23 08:30 Resp 20 07/23/23 08:30 BP 173/89 07/23/23 02:05 Pulse Ox 95 07/23/23 02:05 FiO2 Intake & Output 07/22/23 07/23/23 07/23/23 18:59 06:59 18:59 Other: Voiding Method Toilet # Voids 1 2 - Exam GENERAL DESCRIPTION: An elderly male Up in the chair in no distress RESPIRATORY SYSTEM: Unlabored breathing , decreased breath sounds at bases HEART: S1 S2 regular rate and rhythm , ABDOMEN: Soft , no tenderness Upper back did have a wound from surgical drainage still significant mount of purulent drainage and surrounding erythema - Labs CBC & Chem 7: 07/22/23 04:07 07/23/23 04:06 Labs: Abnormal Lab Results - Last 24 Hours (Table) 07/22/23 07/22/23 07/22/23 Range/Units 04:07 16:45 21:03 Neutrophils # (Manual) 7.91 H (1.80-7.70) X 10*3/uL Chloride (98-107) mmol/L Carbon Dioxide (22-30) mmol/L BUN (9-20) mg/dL Creatinine (0.66-1.25) mg/dL Glucose (74-99) mg/dL POC Glucose (mg/dL) 117 H 166 H (70-110) mg/dL 07/23/23 07/23/23 07/23/23 Range/Units 04:06 04:06 05:37 Neutrophils # (Manual) (1.80-7.70) X 10*3/uL Chloride 111 H (98-107) mmol/L Carbon Dioxide 18 L (22-30) mmol/L BUN 24 H (9-20) mg/dL Creatinine 1.49 H 1.46 H (0.66-1.25) mg/dL Glucose 141 H (74-99) mg/dL POC Glucose (mg/dL) 137 H (70-110) mg/dL 07/23/23 Range/Units 11:14 Neutrophils # (Manual) (1.80-7.70) X 10*3/uL Chloride (98-107) mmol/L Carbon Dioxide (22-30) mmol/L BUN (9-20) mg/dL Creatinine (0.66-1.25) mg/dL Glucose (74-99) mg/dL POC Glucose (mg/dL) 179 H (70-110) mg/dL Microbiology - Last 24 Hours (Table) 07/19/23 22:35 Blood Culture - Preliminary Blood 07/19/23 22:45 Blood Culture - Preliminary Blood 07/20/23 01:04 Gram Stain - Final Back Wound Culture - Final Assessment and Plan (1) Abscess Current Visit: Yes Status: Acute Code(s): L02.91 - CUTANEOUS ABSCESS, UNSPECIFIED SNOMED Code(s): 633806705 Plan: 1patient presented to hospital with sepsis in this patient who did have a fever elevated white count source is likely right upper back infected sebaceous cyst failing outpatient Bactrim DS therapy 2-patient did have elevated creatinine could be related to recent outpatient Bactrim DS use, however vancomycin and Zosyn combination will put him at high risk of nephrotoxicity, Zosyn was discontinued 3-patient is status post bedside I&D, initial culture has been negative for any MRSA or resistant pathogen 4-I will discontinue vancomycin and start the patient on Unasyn plan for a day of IV Unasyn before transition to oral Discussed with the patient as well as admitting physician Dictation was produced using [employer] dictation software. please excuse any grammatical, word or spelling errors. Time with Patient: Less than 30
[2023-07-23] MEDS: AMPICILLIN-SULBACTAM 3 GM in SODIUM CHLORIDE 0.9% 100 ML IVPB SCH (12:39)
--- NOTE | 2023-07-23 13:42 | P.PN ---
Subjective Progress Note Date: 07/23/23 67-year-old male with a past medical history of diabetes mellitus, COPD, h/o CVA/TIA who presents to the ED with a right shoulder abscess. Patient states that it initially started off as a small pimple 3 weeks ago. It then continued to worsen. Patient saw his primary care doctor who started him on Bactrim. The abscess continued to worsen. There was pus drainage from the abscess. Patient then decided to come into the hospital. In the ED patient met sepsis criteria. BP 168/77, HR 106, T 100.2F, RR 20, 96% on RA. CBC, CMP performed significant for WBC 15.3, Hg 11.7, Hct 37.4, Na 134, Cl 110, bicarb 14, BUN 36, Cr 2.57, glu 105, Ca 8.3, ALT 52, alk phos 445, alb 2.7. UA 2+ protein, small blood, negative LE or nitrite. US showed fluid collection 2.2 x 1.2 x 1.8 cm. Patient admitted to the medicine service. Patient started on vancomycin and Zosyn. Patient seen by general surgery, underwent bedside I&D on 07/20. 07/21 Patient was seen and examined. Reports well controlled pain in the right shoulder. BMP Cl 112, bicarb 18, BUN 25, Cr 1.86, Ca 8.2. 07/22 Patient was seen and examined. Discussed with Dr. Kessler, continue IV antibiotics for one more day. Wound and blood cultures have been negative so far. BMP Cl 111, bicarb 18, BUN 24, Cr 1.46, glu 141. General: non toxic, no distress, appears at stated age Derm: warm, dry Head: atraumatic, normocephalic, symmetric Eyes: EOMI, no lid lag, anicteric sclera Mouth: no lip lesion, mucus membranes moist Cardiovascular: S1S2 reg, no murmur Lungs: CTA bilateral, no rhonchi, no rales , no accessory muscle use Ext: no gross muscle atrophy, no edema, no contractures, R shoulder dressing c/d/i Neuro: no focal neuro deficits Psych: Alert, oriented, appropriate affect Based on my assessment of this patient, this patient meets a high complexity level of care. Patient has an acute diagnosis of sepsis related to abscess that poses a threat to life or bodily function. Sepsis related to right back abscess: Vancomycin dosed per pharmacy. Follow I&D WCx. Monitor renal function and vancomycin tough for toxicity given CKD. ID on board. TRAVIS on CKD: Worsened due to Bactrim. Improving with IV hydration. Hypertension: Start Amlodipine 10 mg PO QD. Restart Losartan 50 mg PO QD as renal function appears to be at baseline. Diabetes mellitus: Levemir 60 units QD. ISS. Accuchecks ACHS. Hypoglycemic precautions. CODE STATUS: FULL CODE. DVT Prophylaxis: Heparin GI Prophylaxis: Protonix PO Designated medical POA if patient is not able to make medical decisions for themselves: I have reviewed the following architectural sales consultant notes: ID I have reviewed the results of the following tests: BMP. I have ordered the following tests: BMP for tomorrow morning. I have discussed the care of this patient with the following independent historian: . I have independently interpreted the following test below: I have discussed the management of this patient with the following physician: Dr. Kessler Objective - Vital Signs Vital signs: Vital Signs Temp 98.5 F 07/23/23 02:05 Pulse 83 07/23/23 08:30 Resp 20 07/23/23 08:30 BP 173/89 07/23/23 02:05 Pulse Ox 95 07/23/23 02:05 FiO2 Intake & Output 07/22/23 07/23/23 07/23/23 18:59 06:59 18:59 Other: Voiding Method Toilet # Voids 1 2 - Labs CBC & Chem 7: 07/22/23 04:07 07/23/23 04:06 Labs: Abnormal Lab Results - Last 24 Hours (Table) 07/22/23 07/22/23 07/22/23 Range/Units 04:07 16:45 21:03 Neutrophils # (Manual) 7.91 H (1.80-7.70) X 10*3/uL Chloride (98-107) mmol/L Carbon Dioxide (22-30) mmol/L BUN (9-20) mg/dL Creatinine (0.66-1.25) mg/dL Glucose (74-99) mg/dL POC Glucose (mg/dL) 117 H 166 H (70-110) mg/dL 07/23/23 07/23/23 07/23/23 Range/Units 04:06 04:06 05:37 Neutrophils # (Manual) (1.80-7.70) X 10*3/uL Chloride 111 H (98-107) mmol/L Carbon Dioxide 18 L (22-30) mmol/L BUN 24 H (9-20) mg/dL Creatinine 1.49 H 1.46 H (0.66-1.25) mg/dL Glucose 141 H (74-99) mg/dL POC Glucose (mg/dL) 137 H (70-110) mg/dL 07/23/23 Range/Units 11:14 Neutrophils # (Manual) (1.80-7.70) X 10*3/uL Chloride (98-107) mmol/L Carbon Dioxide (22-30) mmol/L BUN (9-20) mg/dL Creatinine (0.66-1.25) mg/dL Glucose (74-99) mg/dL POC Glucose (mg/dL) 179 H (70-110) mg/dL Microbiology - Last 24 Hours (Table) 07/19/23 22:35 Blood Culture - Preliminary Blood 07/19/23 22:45 Blood Culture - Preliminary Blood
--- NOTE | 2023-07-23 15:56 | P.PN ---
Subjective Progress Note Date: 07/23/23 CHIEF COMPLAINT: Infected sebaceous cyst HISTORY OF PRESENT ILLNESS: Patient has a history of chronic sebaceous cyst left upper back. Patient is status post bedside I&D by Dr. Patrick. Patient reports improvement in the pain. Still having drainage from cyst. Afebrile. PHYSICAL EXAM: VITAL SIGNS: Reviewed. GENERAL: Well-developed in no acute distress. ABDOMEN: Soft. Nondistended. Nontender. Umbilical hernia soft nontender reducible NEUROLOGIC: Alert and oriented. Cranial nerves II through XII grossly intact. Skin: Area of cyst is softer. Purulent drainage still noted. Decreasing erythema ASSESSMENT: 1. Infected sebaceous cyst with drainage status post bedside incision and drainage PLAN: -Patient can be discharged from surgical standpoint when medically cleared -Discharge antibiotics per infectious disease -Recommend showering daily Physician Scaffolder note has been reviewed by physician. Signing provider agrees with the documented findings, assessment, and plan of care. Objective - Vital Signs Vital signs: Vital Signs Temp 98.0 F 07/23/23 14:00 Pulse 77 07/23/23 14:00 Resp 18 07/23/23 14:00 BP 176/88 07/23/23 14:00 Pulse Ox 97 07/23/23 14:00 FiO2 Intake & Output 07/22/23 07/23/23 07/23/23 18:59 06:59 18:59 Other: Voiding Method Toilet # Voids 1 2 - Labs CBC & Chem 7: 07/22/23 04:07 07/23/23 04:06 Labs: Abnormal Lab Results - Last 24 Hours (Table) 07/22/23 07/22/23 07/22/23 Range/Units 04:07 16:45 21:03 Neutrophils # (Manual) 7.91 H (1.80-7.70) X 10*3/uL Chloride (98-107) mmol/L Carbon Dioxide (22-30) mmol/L BUN (9-20) mg/dL Creatinine (0.66-1.25) mg/dL Glucose (74-99) mg/dL POC Glucose (mg/dL) 117 H 166 H (70-110) mg/dL 07/23/23 07/23/23 07/23/23 Range/Units 04:06 04:06 05:37 Neutrophils # (Manual) (1.80-7.70) X 10*3/uL Chloride 111 H (98-107) mmol/L Carbon Dioxide 18 L (22-30) mmol/L BUN 24 H (9-20) mg/dL Creatinine 1.49 H 1.46 H (0.66-1.25) mg/dL Glucose 141 H (74-99) mg/dL POC Glucose (mg/dL) 137 H (70-110) mg/dL 07/23/23 Range/Units 11:14 Neutrophils # (Manual) (1.80-7.70) X 10*3/uL Chloride (98-107) mmol/L Carbon Dioxide (22-30) mmol/L BUN (9-20) mg/dL Creatinine (0.66-1.25) mg/dL Glucose (74-99) mg/dL POC Glucose (mg/dL) 179 H (70-110) mg/dL Microbiology - Last 24 Hours (Table) 07/19/23 22:35 Blood Culture - Preliminary Blood 07/19/23 22:45 Blood Culture - Preliminary Blood
[2023-07-23 16:29] LABS: Glucose,Whole Blood 117 mg/dL (70-110)
[2023-07-23 20:03] LABS: Glucose,Whole Blood 120 mg/dL (70-110)
[2023-07-24 03:08] VITALS: RESP 16
[2023-07-24 06:54] LABS: Glucose,Whole Blood 108 mg/dL (70-110)
[2023-07-24 06:54] LABS: African American GFR (CKD) 58 (>60 ml/min/1.73 sqM); Non-African American GFR(CKD) 50 (>60 ml/min/1.73 sqM)
[2023-07-24 07:53] VITALS: BP 172/93; PULSE 79; TEMP 98.7
[2023-07-24] MEDS ORDERED: VANCOMYCIN TROUGH DUE 1 EACH MISC MISCELLANE ONE (08:00)
[2023-07-24] MEDS: LOSARTAN 50 MG TAB PO SCH (08:43)
[2023-07-24 11:35] LABS: Glucose,Whole Blood 198 mg/dL (70-110)
--- NOTE | 2023-07-24 11:54 | P.DS ---
Providers Date of admission: 07/20/23 04:52 Expected date of discharge: 07/24/23 Attending physician: Oswald Deras MD Consults: 07/20/23 02:19 Consult Physician Urgent Consulting Provider: Nolberto Mon Consult Reason/Comments: Abscess Do you want consulting provider notified?: Yes 07/21/23 07:37 Consult Physician Routine Consulting Provider: Drew Patrick Consult Reason/Comments: abscess Do you want consulting provider notified?: Already Contacted 07/21/23 10:49 Consult Physician Routine Consulting Provider: Zeyad Kessler Consult Reason/Comments: wound infection Do you want consulting provider notified?: Yes Primary care physician: [facility] Course: 67-year-old male with a past medical history of diabetes mellitus, COPD, h/o CVA/TIA who presents to the ED with a right shoulder abscess. Patient states that it initially started off as a small pimple 3 weeks ago. It then continued to worsen. Patient saw his primary care doctor who started him on Bactrim. The abscess continued to worsen. There was pus drainage from the abscess. Patient then decided to come into the hospital. In the ED patient met sepsis criteria. BP 168/77, HR 106, T 100.2F, RR 20, 96% on RA. CBC, CMP performed significant for WBC 15.3, Hg 11.7, Hct 37.4, Na 134, Cl 110, bicarb 14, BUN 36, Cr 2.57, glu 105, Ca 8.3, ALT 52, alk phos 445, alb 2.7. UA 2+ protein, small blood, negative LE or nitrite. US showed fluid collection 2.2 x 1.2 x 1.8 cm. Patient admitted to the medicine service. Patient started on vancomycin and Zosyn. Patient seen by general surgery, underwent bedside I&D on 07/20. 07/21 Patient was seen and examined. Reports well controlled pain in the right shoulder. BMP Cl 112, bicarb 18, BUN 25, Cr 1.86, Ca 8.2. 07/22 Patient was seen and examined. Discussed with Dr. Kessler, continue IV antibiotics for one more day. Wound and blood cultures have been negative so far. BMP Cl 111, bicarb 18, BUN 24, Cr 1.46, glu 141. 07/23 Patient was seen and examined. Doing well. Discussed with Dr. Kessler, plans for discharge home on Augmentin for 2 weeks. Pain management with [place] [facility], script sent. Follow up with Surgery within 1 week of discharge. General: non toxic, no distress, appears at stated age Derm: warm, dry Head: atraumatic, normocephalic, symmetric Eyes: EOMI, no lid lag, anicteric sclera Mouth: no lip lesion, mucus membranes moist Cardiovascular: S1S2 reg, no murmur Lungs: CTA bilateral, no rhonchi, no rales , no accessory muscle use Ext: no gross muscle atrophy, no edema, no contractures, R shoulder dressing c/d/i Neuro: no focal neuro deficits Psych: Alert, oriented, appropriate affect Discharge Diagnosis: Sepsis related to right back abscess TRAVIS on CKD Hypertension Diabetes mellitus This complex discharge took 35 minutes to complete. Patient Condition at Discharge: Stable Plan - Discharge Summary Discharge Rx Participant: No New Discharge Prescriptions: New Acetaminophen Tab [Tylenol] 650 mg PO Q6HR PRN tab PRN Reason: Mild Pain Or Fever > 100.5 Amoxic-Pot Clav 875-125Mg [Augmentin 875-125] 1 tab PO Q12HR 14 Days #28 tab HYDROcodone/APAP 10-325MG [[place] 10-325] 1 tab PO Q4HR PRN 3 Days #18 tab PRN Reason: Severe Breakthrough Pain amLODIPine [Norvasc] 10 mg PO DAILY #30 tab Continue Omeprazole 20 mg PO DAILY PRN PRN Reason: Heartburn Insulin Aspart [NovoLOG Flexpen] 20 units SQ AC-TID Insulin Glargine,Hum.rec.anlog [Toujeo Max Solostar] 110 units SQ DAILY Tolterodine ER [Detrol LA] 4 mg PO HS Tirzepatide [Mounjaro] 7.5 mg SQ CATES Losartan [Cozaar] 50 mg PO DAILY L.acidoph,Paracasei, B.lactis [Probiotic] 1 cap PO DAILY Discontinued Sulfamethox-Tmp 800-160Mg [Bactrim DS 800-160 mg] 1 tab PO BID Discharge Medication List Tolterodine ER [Detrol LA] 4 mg PO HS 10/07/22 [History] Insulin Aspart [NovoLOG Flexpen] 20 units SQ AC-TID 07/20/23 [History] Insulin Glargine,Hum.rec.anlog [Touchrissy Peguero Solostar] 110 units SQ DAILY 07/20/23 [History] L.acidoph,Paracasei, B.lactis [Probiotic] 1 cap PO DAILY 07/20/23 [History] Losartan [Cozaar] 50 mg PO DAILY 07/20/23 [History] Omeprazole 20 mg PO DAILY PRN 07/20/23 [History] Tirzepatide [Mounjaro] 7.5 mg SQ CATES 07/20/23 [History] Acetaminophen Tab [Tylenol] 650 mg PO Q6HR PRN tab 07/24/23 [Rx] Amoxic-Pot Clav 875-125Mg [Augmentin 875-125] 1 tab PO Q12HR 14 Days #28 tab 07/24/23 [Rx] HYDROcodone/APAP 10-325MG [[place] 10-325] 1 tab PO Q4HR PRN 3 Days #18 tab 07/24/23 [Rx] amLODIPine [Norvasc] 10 mg PO DAILY #30 tab 07/24/23 [Rx] Follow up Appointment(s)/Referral(s): Prasanna Saldaña MD [Primary Care Provider] - 1-2 days Drew Patrick MD [STAFF PHYSICIAN] - 1 Week Activity/Diet/Wound Care/Special Instructions: Diabetic diet Discharge Disposition: HOME SELF-CARE
--- NOTE | 2023-07-24 12:42 | P.PN ---
Subjective Progress Note Date: 07/24/23 CHIEF COMPLAINT: Infected sebaceous cyst HISTORY OF PRESENT ILLNESS: Patient has a history of chronic sebaceous cyst left upper back. Patient is status post bedside I&D by Dr. Patrick. Patient reports improvement in the pain. Still having drainage from cyst. Afebrile. PHYSICAL EXAM: VITAL SIGNS: Reviewed. GENERAL: Well-developed in no acute distress. ABDOMEN: Soft. Nondistended. Nontender. Umbilical hernia soft nontender reducible NEUROLOGIC: Alert and oriented. Cranial nerves II through XII grossly intact. Skin: Area of cyst is softer. Purulent drainage still noted. Decreasing erythe ma ASSESSMENT: 1. Infected sebaceous cyst with drainage status post bedside incision and drainage PLAN: -Patient can be discharged from surgical standpoint when medically cleared -Discharge antibiotics per infectious disease -Recommend showering daily Physician Forklift Wheel Loader note has been reviewed by physician. Signing provider agrees with the documented findings, assessment, and plan of care. Objective - Vital Signs Vital signs: Vital Signs Temp 98.7 F 07/24/23 07:40 Pulse 79 07/24/23 08:00 Resp 16 07/24/23 08:00 BP 172/93 07/24/23 07:40 Pulse Ox 95 07/24/23 07:40 FiO2 Intake & Output 07/23/23 07/24/23 07/24/23 18:59 06:59 18:59 Output Total 300 Balance -300 Weight 131.995 kg Output: Urine 300 Other: Voiding Method Toilet Toilet # Voids 4 # Bowel Movements 1 - Labs CBC & Chem 7: 07/22/23 04:07 07/24/23 05:39 Labs: Abnormal Lab Results - Last 24 Hours (Table) 07/23/23 07/23/23 07/24/23 Range/Units 16:27 20:01 05:39 Creatinine 1.45 H (0.66-1.25) mg/dL POC Glucose (mg/dL) 117 H 120 H (70-110) mg/dL 07/24/23 Range/Units 11:33 Creatinine (0.66-1.25) mg/dL POC Glucose (mg/dL) 198 H (70-110) mg/dL Microbiology - Last 24 Hours (Table) 07/19/23 22:35 Blood Culture - Preliminary Blood 07/19/23 22:45 Blood Culture - Preliminary Blood
--- NOTE | 2023-07-24 15:42 | P.PN ---
Subjective Progress Note Date: 07/24/23 Principal diagnosis: Reason for follow-up is right upper back abscess Patient is a 67-year-old male with a past medical history for diabetes mellitus CVA TIA COPD mention he did have a lump to the right upper back area for a long time recently did have increasing swelling and redness failing outpatient Bactrim DS therapy presented to the hospital with infected sebaceous cyst patient did have a bedside drainage by surgery. On today's evaluation that is 07/24/2023,the patient remains to be afebrile, patient is on room air not requiring supplemental oxygen and denies any shortness of breath no chest pain or cough.Patient denies having any nausea or vomiting, no abdominal pain and no diarrhea has been reported, the patient pain to the right upper back is slightly decreased intensity no further drainage. Patient did have a creatinine 1.45 culture has been negative Objective - Vital Signs Vital signs: Vital Signs Temp 98.7 F 07/24/23 07:40 Pulse 79 07/24/23 08:00 Resp 16 07/24/23 08:00 BP 172/93 07/24/23 07:40 Pulse Ox 95 07/24/23 07:40 FiO2 Intake & Output 07/23/23 07/24/23 07/24/23 18:59 06:59 18:59 Output Total 300 Balance -300 Output: Urine 300 Other: Voiding Method Toilet Toilet # Voids 4 # Bowel Movements 1 - Exam GENERAL DESCRIPTION: An elderly male Up in the chair in no distress RESPIRATORY SYSTEM: Unlabored breathing , decreased breath sounds at bases HEART: S1 S2 regular rate and rhythm , ABDOMEN: Soft , no tenderness Upper back wound surrounding swelling and redness slightly decreased minimal drainage on the dressing - Labs CBC & Chem 7: 07/22/23 04:07 07/24/23 05:39 Labs: Abnormal Lab Results - Last 24 Hours (Table) 07/23/23 07/23/23 07/23/23 Range/Units 11:14 16:27 20:01 Creatinine (0.66-1.25) mg/dL POC Glucose (mg/dL) 179 H 117 H 120 H (70-110) mg/dL 07/24/23 Range/Units 05:39 Creatinine 1.45 H (0.66-1.25) mg/dL POC Glucose (mg/dL) (70-110) mg/dL Microbiology - Last 24 Hours (Table) 07/19/23 22:35 Blood Culture - Preliminary Blood 07/19/23 22:45 Blood Culture - Preliminary Blood Assessment and Plan (1) Abscess Status: Acute Code(s): L02.91 - CUTANEOUS ABSCESS, UNSPECIFIED SNOMED Code(s ): 590521179 Plan: 1patient presented to hospital with sepsis in this patient who did have a fever elevated white count source is likely right upper back infected sebaceous cyst failing outpatient Bactrim DS therapy 2-patient is status post bedside I&D, initial culture has been negative for any MRSA or resistant pathogen 3-patient seem to have shown clinical improvement as for the cellulitis we will finish therapy with oral Augmentin x 2 weeks prescription sent to the pharmacy and close outpatient follow-up local care was discussed with the Dictation was produced using [employer] dictation software. please excuse any grammatical, word or spelling errors.
--- NOTE | 2023-07-25 08:26 | CDI ---
Documentation Clarification Form Date: 07/25/2023 07:59:51 AM From: Janey Altamirano RN, CCDS Phone: [phone] Admit Date: 07/20/2023 04:52:00 AM Patient Name: Anthony Barnes V Visit Number: [id number] Discharge Date: 07/24/2023 01:44:00 PM ATTENTION: The Clinical Documentation Specialists (CDI) and [facility] Coding Staff appreciate your assistance in clarifying documentation. Please respond to the clarification below the line at the bottom and electronically sign. The CDI & [facility] Coding staff will review the response and follow-up if needed. Please note: Queries are made part of the Legal Health Record. If you have any questions, please contact the author of this message via ITS. Dr. Jenn Corea Unspecified CKD is documented in the progress notes on 07/22/23 and in the discharge summary. Additional clarification regarding the stage of CKD is requested. History/Risk Factors: COPD, CVA/TIA, Diabetes Mellitus, Memory Impairment, Former smoker Patients Historical 12/26/21 Cr 1.4, GFR 54.2 54.2 Clinical Indicators: 67-year-old male present with right shoulder infected subacous cyst. He was diagnosed with TRAVIS on CKD: Worsened due to Bactrim. 07/18 BUN 36, Cr 2.54, GFR 25 07/20 BUN 31, Cr 2.4 Est GFR (CKD-EPI) 29 07/21 BUN 25, Cr 1.86, GFR 37 07/22 BUN 24, Cr 1.46, GFR 49 Treatment: .9NS @ @130MLS/HR 07/18-07/19 .9NS 2,000 ML Bolus 07/18 Hold Losartan Monitor kidney function closely. Please clarify the stage of the CKD, if known: [ ] CKD Stage 1 [ ] CKD Stage 2 [ ] CKD Stage 3 [ x ] CKD Stage 3a [ ] CKD Stage 3b [ ] CKD Stage 4 [ ] CKD Stage 5 [ ] Other, please specify [ ] Unable to determine Reference: National Kidney Foundation Stage 1 eGFR = 90 and kidney damage for =3 months Stage 2 eGFR 60-89 and kidney damage for =3 months Stage 3a eGFR 45-59 and kidney damage for =3 months Stage 3b eGFR 30-44 and kidney damage for =3 months Stage 4 eGFR 15-29 r and kidney damage for =3 months Stage 5 eGFR <15 and kidney damage for =3 months (Template Last revised: March 2023) MTDD
--- NOTE | 2023-07-30 15:01 | CDI ---
Documentation Clarification Form Date: 07/30/2023 02:13:30 PM From: Tammi Mack RN, CCDS Phone: [phone] Admit Date: 07/20/2023 04:52:00 AM Patient Name: Anthony Barnes V Visit Number: [id number] Discharge Date: 07/24/2023 01:44:00 PM ATTENTION: The Clinical Documentation Specialists (CDI) and [facility] Coding Staff appreciate your assistance in clarifying documentation. Please respond to the clarification below the line at the bottom and electronically sign. The CDI & [facility] Coding staff will review the response and follow-up if needed. Please note: Queries are made part of the Legal Health Record. If you have any questions, please contact the author of this message via ITS. Dr. Jenn Corea TRAVIS on CKD is documented in the progress notes. Additional clarification is requested. History/Risk factors: COPD, CVA, DM. Presented with right shoulder abscess. In the ED patient met sepsis criteria. Clinical Indicators: H&P: "Hypertension. Hold Lisinopril secondary to TRAVIS." 07/21 IM: "TRAVIS on CKD: Worsened due to Bactrim." ID: patient presented with sepsis, fever and elevated white count. Source is likely right upper back infected sebaceous cyst failing outpatient Bactrim DS therapy. 07/18-07/23 Labs: Cr 2.57-2.4-1.86-1.45; BUN 36-31-25-24; GFR 25-37-48-50 07/18 Urine: cloudy, small blood, amorphous sediment, granular casts and urine bacteria Treatment: 1L 0.9 NS IV bolus x1 on 07/18 then 130mL/hr on 07/19 then 75mL/hr 07/19-07/23; hold Lisinopril Please clarify the type of acute renal failure, if known: [ x ] TRAVIS with Acute Tubular Necrosis [ ] TRAVIS with other cause, please specify [ ] Unable to determine [ ] Other, please specify MTDD
== END 2023-07-24 13:44 | disposition home or self-care (01) | DRG 871 ==
LOC: EC 21:24 → 4SSUR 07-20 04:52
PROVIDERS: ADMIT Internal Medicine; ATTEND Internal Medicine
DX: A41.9 Sepsis, unspecified organism (principal); N17.0 Acute kidney failure with tubular necrosis; L02.212 Cutaneous abscess of back [any part, except buttock and flank]; L02.413 Cutaneous abscess of right upper limb; I13.10 Hypertensive heart and chronic kidney disease without heart failure, with stage 1 through stage 4 chronic kidney disease, or unspecified chronic kidney disease; J44.9 Chronic obstructive pulmonary disease, unspecified; L72.0 Epidermal cyst; E11.22 Type 2 diabetes mellitus with diabetic chronic kidney disease; Z86.73 Personal history of transient ischemic attack (TIA), and cerebral infarction without residual deficits; N18.31 Chronic kidney disease, stage 3a; Z79.899 Other long term (current) drug therapy; Z79.4 Long term (current) use of insulin; T36.8X5A Adverse effect of other systemic antibiotics, initial encounter; L72.3 Sebaceous cyst; Z87.891 Personal history of nicotine dependence; Z88.8 Allergy status to other drugs, medicaments and biological substances
CPT/HCPCS: 36415; 76705; 80048; 80053; 81001; 82565; 83036; 83605; 85025; 87040; 87070; 87205; 96361; 96365; 96366; 96367; 99291

== ENCOUNTER 2024-02-09 19:51 | Observation (INO) | payer MEDICARE ==
[2024-02-09 20:10] LABS: Glucose,Whole Blood 191 mg/dL (70-110)
[2024-02-09 20:19] LABS: Basophils % (A) 0 %; Eosinophils # (A) 0.3 k/uL (0-0.7); Eosinophils % (A) 3 %; HCT 45.3 % (39.0-53.0); HGB 14.9 gm/dL (13.0-17.5); Lymphocytes # (A) 1.2 k/uL (1.0-4.8); Lymphocytes % (A) 12 %; MCH 29.8 pg (25.0-35.0); MCV 90.2 fL (80.0-100.0); Mean Platelet Volume 8.2; Monocytes # (A) 0.4 k/uL (0-1.0); Monocytes % (A) 4 %; Neutrophils # (A) 7.4 k/uL (1.3-7.7); Neutrophils % (A) 79 %; Platelet Count 223 k/uL (150-450); RBC 5.02 m/uL (4.30-5.90); RDW 14.8 % (11.5-15.5); WBC 9.4 k/uL (3.8-10.6)
[2024-02-09 20:27] LABS: INR 0.9 (<1.2); Partial Thromboplastin Time 24.4 sec (22.0-30.0); Prothrombin Time 9.7 sec (10.0-12.5)
--- NOTE | 2024-02-09 20:28 | CT ---
EXAMINATION TYPE: CODE STROKE: CT brain wo contr DATE OF EXAM: 02/09/2024 8:23 PM COMPARISON: 08/24/2017 CLINICAL INDICATION: Male, 68 years old with history of Neuro deficit, acute, stroke suspected, Code stroke, numbness/weakness to right arm. Hx of a stroke. TECHNIQUE: CT of the brain is performed utilizing 3 mm thick sections through the posterior fossa and 3 mm thick sections through the remaining calvarium. Study is performed within 24 hours of arrival to the hospital. Contrast used: mL of , (none if empty) CT DLP: 1158.9 mGycm, Automated exposure control for dose reduction was used. FINDINGS: No abnormal hyperdensity is present to suggest an acute intracranial hemorrhage. No mass lesion is evident. No acute infarcts are evident. Ventricles and sulci are appropriate for the patient age. Paranasal sinuses and mastoid air cells within the [id number] are clear. IMPRESSION: 1. No acute intracranial process. Follow up MRI can be performed as clinically indicated. [facility], , 02/09/2024 8:26 PM
[2024-02-09 20:31] LABS: ALT 21 U/L (4-49); AST 27 U/L (17-59); African American GFR (CKD) 44 (>60 ml/min/1.73 sqM); Alkaline Phosphatase 136 U/L (38-126); Anion Gap 9 mmol/L; Blood Urea Nitrogen 46 mg/dL (9-20); Calcium 8.9 mg/dL (8.4-10.2); Carbon Dioxide 20 mmol/L (22-30); Chloride 107 mmol/L (98-107); Creatine Kinase 174 U/L (55-170); Glucose 203 mg/dL (74-99); Non-African American GFR(CKD) 38 (>60 ml/min/1.73 sqM); Potassium 4.8 mmol/L (3.5-5.1); Sodium 136 mmol/L (137-145); Total Bilirubin 0.6 mg/dL (0.2-1.3); Total Protein 7.7 g/dL (6.3-8.2)
[2024-02-09] MEDS: SODIUM CHLORIDE 0.9% 500 ML 500 ML IV ONE (21:13)
[2024-02-09] MEDS: ASPIRIN 325 MG TAB PO STA (21:13)
--- NOTE | 2024-02-09 21:43 | CT ---
EXAMINATION TYPE: CT angio head neck DATE OF EXAM: 02/09/2024 8:46 PM COMPARISON: None. CLINICAL INDICATION: Male, 68 years old with history of Neuro deficit, acute, stroke suspected, Code stroke, numbess/weakness to right arm. Hx of a stroke. TECHNIQUE: CTA scan is performed with axial images are obtained, coronal and sagittal reformatted becky ges are reviewed. 3-D reconstructed images are created on an independent workstation and reviewed. [facility] [place] are reviewed. NASCET criteria was used in interpretation of this exam? Contrast used:65ml mL of Isovue 370 with IV Contrast, (none if empty) Oral contrast used: (none if empty) CT DLP: 863.8 mGycm, Automated exposure control for dose reduction was used. FINDINGS: Carotid/Vascular Structures: There is a 3 vessel arch. Common carotid arteries bifurcate into internal and external carotid arteries without significant baron w limiting stenosis. Vertebral arteries are codominant. Vertebral artery caliber is somewhat small but patent throughout t heir visualized course Internal carotid arteries and vertebral arteries are patent to the skull base. Cervical of Jung: Vertebral basilar system appears normal. Posterior cerebral vasculature is unrema rkable. Internal carotid arteries bifurcate normally into A1 and M1 segments. A2 segments are normal. The anterior communicating artery is patent. The right posterior communicating artery is patent. The left posterior communicating artery is patent. IMPRESSION: 1. No flow-limiting stenosis bilateral carotid bifurcations. 2. Normal [place] of [place] [facility], , 02/09/2024 9:41 PM
--- NOTE | 2024-02-09 21:51 | ED ---
General Adult HPI - General Chief complaint: Weakness Stated complaint: Poss Stroke, Weakness,Slurred Speech Time Seen by Provider: 02/09/24 20:00 Source: patient, RN notes reviewed, old records reviewed Mode of arrival: ambulatory Limitations: no limitations - History of Present Illness Initial comments: 68-year-old male presenting for evaluation of right arm weakness and numbness as well as an episode of confusion or altered level of consciousness. Patient symptoms began at approximately 1830. They have mostly resolved at the time of initial evaluation the emergency department with only some numbness on the fingertips of the right hand. Patient was discontinued off of his hypertensive medication approximately 1 week ago due to normal blood pressure. No anticoagulation or antiplatelet medication. - Related Data Home Medications Medication Instructions Recorded Confirmed Insulin Aspart [NovoLOG Flexpen] 20 units SQ TID-W/MEALS 07/20/23 02/09/24 Insulin Glargine,Hum.rec.anlog 60 units SQ DAILY 07/20/23 02/09/24 [Suleman Barksdale] Tirzepatide [Mounjaro] 7.5 mg SQ CATES 07/20/23 02/09/24 Oxybutynin Chloride [oxyBUTYnin 10 mg PO BID 02/09/24 02/09/24 chloride ER] Allergies Allergy/AdvReac Type Severity Reaction Status Date / Time insulin lispro [From Humalog] AdvReac Diarrhea Verified 02/09/24 20:38 Review of Systems ROS Statement: Those systems with pertinent positive or pertinent negative responses have been documented in the HPI. ROS Other: All systems not noted in ROS Statement are negative. Past Medical History Past Medical History: COPD, CVA/TIA, Diabetes Mellitus, Memory Impairment Additional Past Medical History / Comment(s): LISINOPRIL FOR KIDNEYS/DM. 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 History of Any Multi-Drug Resistant Organisms: None Reported Past Surgical History: Orthopedic Surgery Additional Past Surgical History / Comment(s): LEFT KNEE Past Anesthesia/Blood Transfusion Reactions: No Reported Reaction Additional Past Anesthesia/Blood Transfusion Reaction / Comment(s): PRONE TO VERTIGO Past Psychological History: No Psychological Hx Reported Smoking Status: Former smoker Past Alcohol Use History: None Reported Past Drug Use History: None Reported General Exam Limitations: no limitations General appearance: alert, in no apparent distress Head exam: Present: atraumatic, normocephalic Eye exam: Present: normal appearance, PERRL, other (subconjunctival hemorrhage) ENT exam: Present: normal exam Neck exam: Present: normal inspection Respiratory exam: Present: normal lung sounds bilaterally. Absent: respiratory distress, wheezes Cardiovascular Exam: Present: regular rate, normal rhythm GI/Abdominal exam: Present: soft. Absent: distended, tenderness Extremities exam: Present: normal inspection Neurological exam: Present: alert, oriented X3, CN II-XII intact, other (NIH is 0). Absent: motor sensory deficit Psychiatric exam: Present: normal affect, normal mood Skin exam: Present: warm, dry, intact Course Vital Signs 02/09/24 02/09/24 02/09/24 19:54 20:23 20:38 Temperature 97.9 F 98.1 F 98.0 F Pulse Rate 93 80 80 Respiratory 18 16 18 Rate Blood Pressure 212/106 185/101 170/99 O2 Sat by Pulse 98 82 L 96 Oximetry 02/09/24 02/09/24 02/09/24 20:53 21:08 21:23 Temperature 97.8 F 97.9 F 97.8 F Pulse Rate 83 77 78 Respiratory 16 18 18 Rate Blood Pressure 167/96 180/113 187/106 O2 Sat by Pulse 96 97 97 Oximetry - Reevaluation(s) Reevaluation #1: 02/09/24 21:44 Patient reevaluated, he is hypertensive but otherwise without complaint NIH of 0 Medical Decision Making - Medical Decision Making Was pt. sent in by a medical professional or institution (, PA, MEDICINE TECHNOLOGIST, urgent care, hospital, or long-term...) When possible be specific @ -No Did you speak to anyone other than the patient for history (EMS, parent, family, police, friend...)? What history was obtained from this source @ -No Did you review nursing and triage notes (agree or disagree)? Why? @ -I reviewed and agree with nursing and triage notes Were old charts reviewed (outside hosp., previous admission, EMS record, old EKG, old radiological studies, urgent care reports/EKG's, long-term records)? Report findings @ -No old charts were reviewed Differential CVA Ischemic stroke, hemorrhagic stroke, brain tumor, atypical migraine, Wernicke's encephalopathy, seizure, multiple sclerosis, meningitis, encephalitis, hypoglycemia, Guillain-Barnes, electrolytes disturbance, myasthenia gravis.... This is not meant to be an all-inclusive list EKG interpreted by me (3pts min.). @EKG sinus rhythm rate of 93, FL interval 159, QRS duration 100, QTc [address] segment elevation X-rays interpreted by me (1pt min.). @ -None done CT interpreted by me (1pt min.). @ -CT brain negative for intracranial hemorrhage or mass effect, CT angiography negative for acute occlusion or stenosis U/S interpreted by me (1pt. min.). @ -None done What testing was considered but not performed or refused? (CT, X-rays, U/S, labs)? Why? @ -None What meds were considered but not given or refused? Why? @ -None Did you discuss the management of the patient with other professionals (professionals i.e. , PA, MEDICINE TECHNOLOGIST, lab, RT, psych nurse, elementary school social worker, podiatric physician, teacher, contracting officer, briefcase sewer)? Give summary @ -Dr. Gray, recommends medical management Was smoking cessation discussed for >3mins.? @ -No Was critical care preformed (if so, how long)? @ -No Were there social determinants of health that impacted care today? How? (Homelessness, low income, unemployed, alcoholism, drug addiction, transportation, low edu. Level, literacy, decrease access to med. care, senior care, rehab)? @ -No Was there de-escalation of care discussed even if they declined (Discuss DNR or withdrawal of care, Hospice)? DNR status @ -No What co-morbidities impacted this encounter? (DM, HTN, Smoking, COPD, CAD, Cancer, CVA, ARF, Chemo, Hep., AIDS, mental health diagnosis, sleep apnea, morbid obesity)? @Hypertension Was patient admitted / discharged? Hospital course, mention meds given and route, prescriptions, significant lab abnormalities, going to OR and other perti nent info. @ -68-year-old male presenting with stroke symptoms which are resolved at the time my evaluation initial NIH of 0. CT CT angiography is obtained. Although the patient's initial symptoms were resolved this was a stroke activation given onset of symptoms and degree of hypertension. Imaging is negative. Patient given aspirin and reinitiated on his hypertensive medication. He will be admitted for further TIA evaluation. Case discussed with Dr. Montgomery who will admit Undiagnosed new problem with uncertain prognosis? @ -No Drug Therapy requiring intensive monitoring for toxicity (Heparin, Nitro, Insulin, Cardizem)? @ -No Were any procedures done? @ -No Diagnosis/symptom? @ -TIA Acute, or Chronic, or Acute on Chronic? @ -[Acute Uncomplicated (without systemic symptoms) or Complicated (systemic symptoms)? @ -Default Side effects of treatment? @ -No Exacerbation, Progression, or Severe Exacerbation? @ -No Poses a threat to life or bodily function? How? (Chest pain, USA, IA, pneumonia, PE, COPD, DKA, ARF, appy, cholecystitis, CVA, Diverticulitis, Homicidal, Suicidal, threat to staff... and all critical care pts) @ -[Yes, CVA - Lab Data Result diagrams: 02/09/24 20:07 02/09/24 20:07 Lab Results 02/09/24 02/09/24 02/09/24 Range/Units 20:07 20:07 20:07 WBC 9.4 (3.8-10.6) k/uL RBC 5.02 (4.30-5.90) m/uL Hgb 14.9 (13.0-17.5) gm/dL Hct 45.3 (39.0-53.0) % MCV 90.2 (80.0-100.0) fL MCH 29.8 (25.0-35.0) pg MCHC 33.0 (31.0-37.0) g/dL RDW 14.8 (11.5-15.5) % Plt Count 223 (150-450) k/uL MPV 8.2 Neutrophils % 79 % Lymphocytes % 12 % Monocytes % 4 % Eosinophils % 3 % Basophils % 0 % Neutrophils # 7.4 (1.3-7.7) k/uL Lymphocytes # 1.2 (1.0-4.8) k/uL Monocytes # 0.4 (0-1.0) k/uL Eosinophils # 0.3 (0-0.7) k/uL Basophils # 0.0 (0-0.2) k/uL PT 9.7 L (10.0-12.5) sec INR 0.9 (<1.2) APTT 24.4 (22.0-30.0) sec Sodium 136 L (137-145) mmol/L Potassium 4.8 (3.5-5.1) mmol/L Chloride 107 (98-107) mmol/L Carbon Dioxide 20 L (22-30) mmol/L Anion Gap 9 mmol/L BUN 46 H (9-20) mg/dL Creatinine 1.80 H (0.66-1.25) mg/dL Est GFR (CKD-EPI)AfAm 44 (>60 ml/min/1.73 sqM) Est GFR (CKD-EPI)NonAf 38 (>60 ml/min/1.73 sqM) Glucose 203 H (74-99) mg/dL POC Glucose (mg/dL) (70-110) mg/dL POC Glu Project Builder ID Calcium 8.9 (8.4-10.2) mg/dL Total Bilirubin 0.6 (0.2-1.3) mg/dL AST 27 (17-59) U/L ALT 21 (4-49) U/L Alkaline Phosphatase 136 H (38-126) U/L Creatine Kinase 174 H (55-170) U/L Total Protein 7.7 (6.3-8.2) g/dL Albumin 4.0 (3.5-5.0) g/dL 02/09/24 Range/Units 20:09 WBC (3.8-10.6) k/uL RBC (4.30-5.90) m/uL Hgb (13.0-17.5) gm/dL Hct (39.0-53.0) % MCV (80.0-100.0) fL MCH (25.0-35.0) pg MCHC (31.0-37.0) g/dL RDW (11.5-15.5) % Plt Count (150-450) k/uL MPV Neutrophils % % Lymphocytes % % Monocytes % % Eosinophils % % Basophils % % Neutrophils # (1.3-7.7) k/uL Lymphocytes # (1.0-4.8) k/uL Monocytes # (0-1.0) k/uL Eosinophils # (0-0.7) k/uL Basophils # (0-0.2) k/uL PT (10.0-12.5) sec INR (<1.2) APTT (22.0-30.0) sec Sodium (137-145) mmol/L Potassium (3.5-5.1) mmol/L Chloride (98-107) mmol/L Carbon Dioxide (22-30) mmol/L Anion Gap mmol/L BUN (9-20) mg/dL Creatinine (0.66-1.25) mg/dL Est GFR (CKD-EPI)AfAm (>60 ml/min/1.73 sqM) Est GFR (CKD-EPI)NonAf (>60 ml/min/1.73 sqM) Glucose (74-99) mg/dL POC Glucose (mg/dL) 191 H (70-110) mg/dL POC Glu Project Builder ID Christopher Ricci Calcium (8.4-10.2) mg/dL Total Bilirubin (0.2-1.3) mg/dL AST (17-59) U/L ALT (4-49) U/L Alkaline Phosphatase (38-126) U/L Creatine Kinase (55-170) U/L Total Protein (6.3-8.2) g/dL Albumin (3.5-5.0) g/dL Disposition Clinical Impression: TIA (transient ischemic attack) Disposition: ADMITTED IP TO THIS HOSP Condition: Stable Is patient prescribed a controlled substance at d/c from ED?: No Referrals: Pina Pedraza MD [Primary Care Provider] - 1-2 days Time of Disposition: 21:51
[2024-02-09] MEDS: ATORVASTATIN 80 MG TAB PO SCH (23:06)
[2024-02-09] MEDS: LOSARTAN 50 MG TAB PO SCH (23:07)
[2024-02-10] MEDS: ASPIRIN 325 MG TAB PO SCH (08:16)
[2024-02-10] MEDS ORDERED: DEXTROSE 50% SYRINGE 50 ML IVP PRN ×2 (09:58)
[2024-02-10 10:11] LABS: Glucose,Whole Blood 205 mg/dL (70-110)
[2024-02-10] MEDS: INSULIN DETEMIR (LEVEMIR) 100 UNIT/ML SYR SQ SCH (10:28)
[2024-02-10] MEDS: ENOXAPARIN 40 MG/0.4 ML SYRINGE SQ SCH (10:28)
[2024-02-10] MEDS: OXYBUTYNIN 10 MG TAB.ER.24 PO SCH (11:20)
[2024-02-10 11:38] LABS: Chol/HDL Ratio 6.29 Ratio
[2024-02-10 12:08] LABS: Glucose,Whole Blood 253 mg/dL (70-110)
[2024-02-10] MEDS: INSULIN ASPART (NovoLOG) 100 UNIT/ML VIAL SQ SCH (12:16)
--- NOTE | 2024-02-10 12:34 | CA ---
Transthoracic Echo Report Name: Anthony Barnes Age: 68 Gender: M : 1955 Exam Date: 02/10/2024 09:33 Exam Location: [facility] Ht (in): 71 Wt (lb): 270 Ordering Physician: Shiva Thomson MD Attending/Referring Phys: [id number], Alix Meat Curer [place] RDCS Procedure CPT: Indications: Thrombus Cardiac Hx: Technical Quality: Poor, Technically difficult study Contrast 1: Definity Total Dose (mL): 2 Contrast 2: Total Dose (mL): MEASUREMENTS (Male / Female) Normal Values 2D ECHO LV Diastolic Diameter PLAX 4.9 cm 4.2 - 5.9 / 3.9 - 5.3 cm LV Systolic Diameter PLAX 2.5 cm IVS Diastolic Thickness 1.2 cm 0.6 - 1.0 / 0.6 - 0.9 cm LVPW Diastolic Thickness 1.3 cm 0.6 - 1.0 / 0.6 - 0.9 cm LV Relative Wall Thickness 0.5 RV Internal Dim ED PLAX 1.8 cm LA Systolic Diameter LX 4.1 cm 3.0 - 4.0 / 2.7 - 3.8 cm LA Volume 75.1 cm??? 18 - 58 / 22 - 52 cm??? LA Volume Index 29.7 cm???/m??? 16 - 28 cm???/m??? M-MODE Aortic Root Diameter MM 3.3 cm LA Systolic Diameter MM 3.7 cm LA Ao Ratio MM 1.1 AV Cusp Separation MM 2.1 cm DOPPLER AV Peak Velocity 138.3 cm/s AV Peak Gradient 7.7 mmHg MV Area PHT 2.2 cm??? Mitral E Point Velocity 72.4 cm/s Mitral A Point Velocity 93.1 cm/s Mitral E to A Ratio 0.8 MV Deceleration Time 341.9 ms TR Peak Velocity 231.9 cm/s TR Peak Gradient 21.5 mmHg Right Ventricular Systolic Press 25.9 mmHg FINDINGS Left Ventricle Left ventricular ejection fraction is estimated at 55-60 %. Mildly increased septal wall thickness. Left ventricular cavity size normal. No obvious regional wall motion abnormalities. Right Ventricle Normal right ventricular size and function. Right ventricular systolic pressure within normal limits. Right Atrium Mild right atrial dilatation. Left Atrium Mildly increased left atrial volume. Mildly increased left atrial area. Mitral Valve Structurally normal mitral valve. Trace mitral regurgitation. No mitral stenosis. Aortic Valve Trileaflet aortic valve. No aortic valve stenosis or regurgitation. Tricuspid Valve Structurally normal tricuspid valve. Mild tricuspid regurgitation. No tricuspid stenosis. Pulmonic Valve Structurally normal pulmonic valve. Trace pulmonic regurgitation. No pulmonic stenosis. Pericardium No pericardial or pleural effusion. Aorta Normal size aortic root and proximal ascending aorta. CONCLUSIONS Normal LV systolic function Normal pulmonary artery systolic pressure Normal right ventricular systolic function as well Overall normal intracardiac valves No pericardial effusion Previewed by: Dr. Morris Toney MD (Electronically Signed) Final Date: 10 February 2024 12:33
--- NOTE | 2024-02-10 15:12 | P.HPIM ---
History of Present Illness H&P Date: 02/10/24 Chief Complaint: Right arm weakness change in speech Pleasant 68-year-old patient, follows with Dr. Pina Pedraza. Medical conditions include COPD, diabetes,'s cognitive impairment. Patient had a previous stroke with no residual. Patient is accompanied by his in the ER. The patient was seen. Around 6:30 PM yesterday patient right arm felt weak and unable to raise it. Had some headache. Patient could not understand what his is speaking nor c ould she understand what he was trying to say. This afternoon patient has some tingling in the right hand. Speech is back to normal. Right arm weakness greatly improved. No change in swallowing. No change in vision. No change in walking. Patient is left-handed Review of systems: GEN.: None EYES: None HEENT: None NECK: None RESPIRATORY: None CARDIOVASCULAR: None GASTROINTESTINAL: None GENITOURINARY: None MUSCULOSKELETAL: None LYMPHATICS: None HEMATOLOGICAL: None PSYCHIATRY: None NEUROLOGICAL: [As above Social history: . Ex-smoker. Physical examination: VITAL SIGNS: 98, 77, 16, 164/74, 95% room air GENERAL: BMI 37.7, sitting at the edge of the bed, eating. EYES: Pupils equal. Conjunctiva scott l. HEENT: External appearance of nose and ears normal, oral cavity grossly normal. NECK: JVD not raised; masses not palpable. HEART: First and second heart sounds are normal; no edema. LUNGS: Respiratory rate normal; clear to auscultation. ABDOMEN: Soft, nontender, liver spleen not palpable, no masses palpable. PSYCH: Alert and oriented x3; mood and affect scott l. MUSCULOSKELETAL:No Clubbing/cyanosis;muscles-grossly intact NEUROLOGICAL: Cranial nerves grossly intact; no facial asymmetry, power and sensation grossly intact. LYMPHATICS: No lymph nodes palpable in the axilla and neck INVESTIGATIONS, reviewed in the clinical context: February 09, 2024: White count 9.4 hemoglobin 14.9 platelets 223 sodium 136 potassium 4.8 BUN 46 creatinine 1.80 LDL 81.0 EKG tracing personally reviewed by me-normal sinus rhythm. Some LVH. CT brain without contrast: Nothing acute CT angio head and neck: Unremarkable 2D echocardiogram: EF 55 to 60%. Assessment plan: -Acute stroke versus TIA in a patient who yesterday at 6:30 PM developed trouble speaking and understanding. Also right arm weakness. Much improved this morning. Some tingling left in the right arm. Initially initial CT scan of the brain unremarkable. CT angio head and neck: Negative Aspirin. Lipitor. -Essential hypertension Cozaar 50 mg a day. Add chlorthalidone 25 mg -Diabetes mellitus type 2, chronically insulin Mounjaro. Insulin Lantus. Diabetic diet. Follow Accu-Chek sliding-scale i nsulin -Urine bladder dysfunction with outflow obstruction Oxybutynin -Obesity BMI 37.7 Weight loss measures Care was discussed with patient at the bedside. Neurology consulted. Past Medical History Past Medical History: COPD, CVA/TIA, Diabetes Mellitus, Memory Impairment Additional Past Medical History / Comment(s): LISINOPRIL FOR KIDNEYS/DM. 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 History of Any Multi-Drug Resistant Organisms: None Reported Past Surgical History: Orthopedic Surgery Additional Past Surgical History / Comment(s): LEFT KNEE Past Anesthesia/Blood Transfusion Reactions: No Reported Reaction Additional Past Anesthesia/Blood Transfusion Reaction / Comment(s): PRONE TO VERTIGO Past Psychological History: No Psychological Hx Reported Smoking Status: Former smoker Past Alcohol Use History: None Reported Past Drug Use History: None Reported Medications and Allergies Home Medications Medication Instructions Recorded Confirmed Type Insulin Aspart [NovoLOG Flexpen] 20 units SQ TID-W/MEALS 07/20/23 02/09/24 History Insulin Glargine,Hum.rec.anlog 60 units SQ DAILY 07/20/23 02/09/24 History [Suleman Barksdale] Tirzepatide [Mounjaro] 7.5 mg SQ CATES 07/20/23 02/09/24 History Oxybutynin Chloride [oxyBUTYnin 10 mg PO BID 02/09/24 02/09/24 History chloride ER] Allergies Allergy/AdvReac Type Severity Reaction Status Date / Time insulin lispro [From Humalog] AdvReac Diarrhea Verified 02/09/24 20:38 Physical Exam Vitals: Vital Signs Temp Pulse Resp BP Pulse Ox 02/10/24 07:21 74 18 148/87 96 02/10/24 04:53 98.0 F 77 16 164/74 95 02/10/24 00:53 98.2 F 70 18 171/82 98 02/09/24 22:53 72 18 164/111 97 02/09/24 22:23 98 18 175/110 97 02/09/24 21:53 82 18 182/102 96 02/09/24 21:23 97.8 F 78 18 187/106 97 02/09/24 21:08 97.9 F 77 18 180/113 97 02/09/24 20:53 97.8 F 83 16 167/96 96 02/09/24 20:38 98.0 F 80 18 170/99 96 02/09/24 20:23 98.1 F 80 16 185/101 82 L 02/09/24 19:54 97.9 F 93 18 212/106 98 Intake and Output 02/09/24 02/10/24 02/10/24 22:59 06:59 14:59 Other: Weight 122.47 kg Results CBC & Chem 7: 02/09/24 20:07 02/09/24 20:07 Labs: Abnormal Lab Results - Last 24 Hours (Table) 02/09/24 02/09/24 02/09/24 Range/Units 20:07 20:07 20:09 PT 9.7 L (10.0-12.5) sec Sodium 136 L (137-145) mmol/L Carbon Dioxide 20 L (22-30) mmol/L BUN 46 H (9-20) mg/dL Creatinine 1.80 H (0.66-1.25) mg/dL Glucose 203 H (74-99) mg/dL POC Glucose (mg/dL) 191 H (70-110) mg/dL Alkaline Phosphatase 136 H (38-126) U/L Creatine Kinase 174 H (55-170) U/L
--- NOTE | 2024-02-10 16:39 | US ---
EXAMINATION TYPE: US kidneys/renal and bladder DATE OF EXAM: 02/10/2024 COMPARISON: 07/22/2023. CLINICAL INDICATION: Male, 68 years old with history of Evaluate for CKD; CKD TECHNIQUE: Grayscale imaging of the bilateral kidneys and urinary bladder: FINDINGS: EXAM MEASUREMENTS: Right Kidney: 12.8 x 6.0 x 4.3 cm Left Kidney: 12.1 x 6.7 x 5.3 cm Right Kidney: Anechoic area seen mid pole 4.3 x 1.3 x 1.2 x 1.4 cm. Cortical medullary differentiat ion maintained. Left Kidney: Multiple anechoic areas seen largest medial 3.8 x 3.1 x 2.9 cm. . Cortical medullary differentiation maintained. Bladder: Anechoic Bilateral Jets seen: no There is no evidence for hydronephrosis at this point in time. No nephrolithiasis is seen. No jill s are identified. The urinary bladder is anechoic. IMPRESSION: 1. No evidence for obstructive uropathy. 2. Bilateral simple appearing renal cysts. [facility], , 02/10/2024 4:36 PM
[2024-02-10 17:36] LABS: Glucose,Whole Blood 263 mg/dL (70-110)
[2024-02-10 20:18] LABS: Glucose,Whole Blood 187 mg/dL (70-110)
[2024-02-10] MEDS: CLOPIDOGREL 75 MG TAB PO SCH (21:02)
[2024-02-11 05:12] VITALS: TEMP 98.1
[2024-02-11 05:24] LABS: Amorphous Sediment,Urine Rare /hpf; Appearance,Urine Clear (Clear); Bilirubin,Urine Negative (Negative); Blood,Urine Trace (Negative); Color,Urine Colorless; Glucose,Urine (UA) 1+ (Negative); Hyaline Casts,Urine 15 /lpf (0-2); Ketones,Urine Negative (Negative); Leukocyte Esterase,Urine Negative (Negative); Mucus,Urine Rare /hpf; Nitrite,Urine Negative (Negative); PH, Urine 5.5 (5.0-8.0); Protein,Urine 2+ (Negative); RBC,Urine <1 /hpf (0-5); Specific Gravity,Urine 1.009 (1.001-1.035); Squamous Epithelial Cell,Urine <1 /hpf (0-4); Urobilinogen,Urine <2.0 mg/dL (<2.0); WBC,Urine 1 /hpf (0-5)
[2024-02-11 06:34] LABS: Glucose,Whole Blood 167 mg/dL (70-110)
--- NOTE | 2024-02-11 08:56 | P.CNNES ---
History of Present Illness Consult date: 02/10/24 Requesting physician: Shiva Thomson Reason for Consult: TIA History of Present Illness: Patient is a 68-year-old left-handed male with history of hypertension, diabetes, ex tobacco use, came to the hospital yesterday at 7:51 PM for strokelike symptoms. Patient states that yesterday he was eating dinner when at around 6:30 PM last night, his right hand became numb and he could not pick pulling machine tender his right arm. It felt like the right arm weighed "a ton". It was also weak. He also noticed that he was not understanding or comprehending what his was telling him at that time. He also had transient visual disturbance with foggy vision on the right side of his vision. He did not report it to his , just went to the bathroom and took a shower. When he came back from the shower, the symptoms started improving. Overall symptoms lasted for 15 minutes, although he still feels slight tingling in the fingertips of the right hand. Overall symptoms lasted for about 15 to 20 minutes. When he came back from shower, he told his about the above symptoms. Patient's initially had thought that he was mad and therefore was not answering to her questions. Patient was brought to the hospital. Vital signs on arrival blood pressure 2012/106, came down to 185/101, pulse 93 temperature 97.9. Blood test shows normal CBC, PT PTT, sodium 136, BUN 46 creatinine 1.80, hepatic panel is normal. EKG showed sinus rhythm. CT head revealed no acute intracranial process. I personally reviewed CT head, agree with the findings. Abdominal ultrasound revealed no evidence for obstructive uropathy. Bilateral simple appearing renal cysts. Patient has history of hypertension for 5 to 6 years, also has diabetes since 1990. Denies hyperlipidemia. Patient has history of TIA on 09/02/2017, when he presented to [facility] with expressive aphasia. He was given tPA and then he was transferred to [facility] where he was placed in the ICU. While in the ICU, he had another episode of difficulty speaking. He had EEG performed at the time. He had no residual deficits. Apparently patient currently is not on any antiplatelet medication. Patient has smoked about 1-1/2 pack/day for 15 years, quit in 1986. He drinks alcohol just on the weekends. He does not take any antiplatelet medication, except aspirin may be 2 or 3 times a month for some arthritis. 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 He just had 1 injections last Friday bilaterally. Review of Systems All pertinent positive and negative mentioned in the HPI otherwise unremarkable. Past Medical History Past Medical History: COPD, CVA/TIA, Diabetes Mellitus, Memory Impairment Additional Past Medical History / Comment(s): LISINOPRIL FOR KIDNEYS/DM. 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 History of Any Multi-Drug Resistant Organisms: None Reported Past Surgical History: Orthopedic Surgery Additional Past Surgical History / Comment(s): LEFT KNEE Past Anesthesia/Blood Transfusion Reactions: No Reported Reaction Additional Past Anesthesia/Blood Transfusion Reaction / Comment(s): PRONE TO VERTIGO Past Psychological History: No Psychological Hx Reported Smoking Status: Former smoker Past Alcohol Use History: None Reported Past Drug Use History: None Reported Medications and Allergies Home Medications Medication Instructions Recorded Confirmed Type Insulin Aspart [NovoLOG Flexpen] 20 units SQ TID-W/MEALS 07/20/23 02/09/24 History Insulin Glargine,Hum.rec.anlog 60 units SQ DAILY 07/20/23 02/09/24 History [Toujeo Max Solostar] Tirzepatide [Mounjaro] 7.5 mg SQ CATES 07/20/23 02/09/24 History Oxybutynin Chloride [oxyBUTYnin 10 mg PO BID 02/09/24 02/09/24 History chloride ER] Allergies Allergy/AdvReac Type Severity Reaction Status Date / Time insulin lispro [From Humalog] AdvReac Diarrhea Verified 02/09/24 20:38 Physical Examination - Vital Signs Vital Signs: Vital Signs Temp Pulse Resp BP Pulse Ox 02/10/24 18:09 79 18 167/102 99 02/10/24 16:53 70 15 02/10/24 14:06 67 12 02/10/24 12:08 70 17 127/82 97 02/10/24 09:57 67 15 157/99 94 L 02/10/24 07:21 74 18 148/87 96 02/10/24 04:53 98.0 F 77 16 164/74 95 02/10/24 00:53 98.2 F 70 18 171/82 98 02/09/24 22:53 72 18 164/111 97 02/09/24 22:23 98 18 175/110 97 02/09/24 21:53 82 18 182/102 96 02/09/24 21:23 97.8 F 78 18 187/106 97 02/09/24 21:08 97.9 F 77 18 180/113 97 02/09/24 20:53 97.8 F 83 16 167/96 96 02/09/24 20:38 98.0 F 80 18 170/99 96 02/09/24 20:23 98.1 F 80 16 185/101 82 L 02/09/24 19:54 97.9 F 93 18 212/106 98 Patient is an elderly male, very pleasant, in no acute distress. Patient is alert awake oriented to time place and person. Speech and language functions are normal. Patient can name and repeat very well. No aphasia or dysarthria. Attention, concentration and fund of knowledge is adequate. On cranial nerve examination, pupils are equal, round and reacting to light, visual cabrera are full on confrontation, with no neglect on double simultaneous stimulation. Extraocular muscles are intact with no nystagmus. Face is symmetric, tongue protrudes to the midline. Palatal elevation and sensation normal, hearing and shoulder shrug normal, facial sensation normal. On muscle strength testing, there is no pronator drift and the strength is normal in arms and legs distally and proximally. Deep tendon reflexes are symmetric 1+ and plantars downgoing. Sensory to touch is equal with no neglect on double simultaneous stimulation. Cerebellar function showed no ataxia for [id number] testing. No dysdi adochokinesia. No ataxia for [id number] testing on either side. Tone and bulk of muscles normal. Gait deferred.. On general examination, there is no carotid bruit or murmur, S1-S2 audible. Chest is clear on consultation. Abdomen is soft nontender. No organomegaly, bowel sounds present. Peripheral pulses are present. No peripheral edema. Results - Laboratory Findings CBC and BMP: 02/09/24 20:07 02/09/24 20:07 Abnormal Lab Findings: Abnormal Labs 02/09/24 02/09/24 02/09/24 20:07 20:07 20:09 PT 9.7 L Sodium 136 L Carbon Dioxide 20 L BUN 46 H Creatinine 1.80 H Glucose 203 H POC Glucose (mg/dL) 191 H Alkaline Phosphatase 136 H Creatine Kinase 174 H Triglycerides VLDL Cholesterol, Calc HDL Cholesterol 02/10/24 02/10/24 02/10/24 06:45 10:10 12:06 PT Sodium Carbon Dioxide BUN Creatinine Glucose POC Glucose (mg/dL) 205 H 253 H Alkaline Phosphatase Creatine Kinase Triglycerides 335.00 H VLDL Cholesterol, Calc 67.00 H HDL Cholesterol 28.00 L 02/10/24 17:34 PT Sodium Carbon Dioxide BUN Creatinine Glucose POC Glucose (mg/dL) 263 H Alkaline Phosphatase Creatine Kinase Triglycerides VLDL Cholesterol, Calc HDL Cholesterol Assessment and Plan Assessment: * Probable TIA manifesting with transient receptive aphasia, right-sided visual disturbance and right arm weakness. Symptoms resolved in about 15 minutes. Patient has some residual tingling of the fingertips of right hand. Current NIH stroke scale 0. * Hypertension, uncontrolled * Diabetes * Hyperlipidemia * Mild to moderate renal insufficiency, likely due to above * Ex tobacco use * Obesity * Previous history of TIA 09/12/2017 Plan: Patient's symptoms have completely resolved. Patient's NIH stroke scale is 0. Patient not a candidate for tPA, as symptoms have almost completely resolved. 2-D echo revealed normal left ventricular systolic function with EF 55 to 60%. Mildly increased septal wall thickness. Left ventricular cavity size is normal. No obvious regional wall motion abnormalities. Mildly increased left atrial volume. Mildly increased left atrial area. No valvular abnormalities. CTA head and neck showed: No flow-limiting stenosis bilateral carotid bifurca tions. Normal [place]. Fasting a.m. lipid panel with cholesterol 176, LDL 81, HDL 28 and triglycerides 335. Continue Lipitor 80 mg daily. Hemoglobin A1c 9.2, consistent with poorly controlled diabetes. Recommend optimize control of diabetes to target A1c <7.0. Permissive hypertension for next 24-48 hours Patient was not taking any antiplatelet medication at home. Patient to be placed on dual antiplatelet medications for 21 days, thereafter stop Plavix and continue aspirin indefinitely. Neuro checks every 2 hours. Telemetry monitoring rule out any arrhythmia Suggest event monitor for 30 days, rule out PAF. PT, OT, speech therapy DVT prophylaxis: Lovenox 40 mg subcu daily. Neurology will continue to follow. Thank you for the consult.
[2024-02-11 09:30] VITALS: RESP 16
[2024-02-11 10:02] VITALS: BMI 37.6
[2024-02-11 11:16] LABS: Glucose,Whole Blood 185 mg/dL (70-110)
[2024-02-11 12:13] VITALS: BP 166/97; PULSE 72
--- NOTE | 2024-02-11 17:17 | P.PN ---
Progress Note - Text Progress Note Date: 02/11/24 Chief Complaint: Right arm weakness change in speech Pleasant 68-year-old patient, follows with Dr. Pina Pedraza. Medical conditions include COPD, diabetes,'s cognitive impairment. Patient had a previous stroke with no residual. Patient is accompanied by his in the ER. The patient was seen. Around 6:30 PM yesterday patient right arm felt weak and unable to raise it. Had some headache. Patient could not understand what his is speaking nor could she understand what he was trying to say. This afternoon patient has some tingling in the right hand. Speech is back to normal. Right arm weakness greatly improved. No change in swallowing. No change in vision. No change in walking. Patient is left-handed February 10: Doing well. Tolerating diet. No neurodeficits. Seen and cleared by neurology. Patient to take aspirin and Plavix, the latter to be discontinued after 3 weeks. Medication discussed with the patient. Losartan was added for blood pressure. Will also add chlorthalidone. 25 mg. Patient to follow-up with Dr. Rueda neurology outpatient. 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 Also discussed about daily blood pressure checks. Discussion and discharge planning more than 35 minutes Social history: . Ex-smoker. Physical examination: VITAL SIGNS: 72, 16, 166 x 97, 97% room air GENERAL: BMI 37.7, sitting up, comfortable. EYES: Pupils equal. Conjunctiva scott l. HEENT: External appearance of nose and ears normal, oral cavity grossly normal. NECK: JVD not raised; masses not palpable. HEART: First and second heart sounds are normal; no edema. LUNGS: Respiratory rate normal; clear to auscultation. ABDOMEN: Soft, nontender, liver spleen not palpable, no masses palpable. PSYCH: Alert and oriented x3; mood and affect scott l. MUSCULOSKELETAL:No Clubbing/cyanosis;muscles-grossly intact NEUROLOGICAL: Cranial nerves grossly intact; no facial asymmetry, power and sensation grossly intact. INVESTIGATIONS, reviewed in the clinical context: Renal ultrasound: Cortical medullary differentiation maintained both the kidneys. Within normal limits of size UA: Protein 2+. Glucose 1+. February 09, 2024: White count 9.4 hemoglobin 14.9 platelets 223 sodium 136 potassium 4.8 BUN 46 creatinine 1.80 LDL 81.0 EKG tracing personally reviewed by me-normal sinus rhythm. Some LVH. CT brain without contrast: Nothing acute CT angio head and neck: Unremarkable 2D echocardiogram: EF 55 to 60%. Assessment plan: -Acute TIA in a patient who yesterday at 6:30 PM developed trouble speaking and understanding. Also right arm weakness. Much improved this morning. Some tingling left in the right arm.: Improved Initially initial CT scan of the brain unremarkable. CT angio head and neck: Negative Aspirin. Lipitor. Seen by Dr. Manning from neurology. Follow-up with Dr. Janak Rueda outpatient neurology -Essential hypertension Cozaar 50 mg a day. chlorthalidone 25 mg -Diabetes mellitus type 2, chronically insulin Mounjaro. Insulin Lantus. Diabetic diet. Follow Accu-Chek sliding-scale insulin Chronic kidney disease stage III likely nephrosclerosis and diabetic nephropathy Patient's creatinine was elevated back in June 2023. Discussed with patient and . UA shows proteinuria Renal ultrasound shows normal-appearing kidney Follow-up outpatient nephrology -Urine bladder dysfunction with outflow obstruction Oxybutynin -Obesity BMI 37.7 Weight loss measures -Full code Disposition: Home Past Medical History Past Medical History: COPD, CVA/TIA, Diabetes Mellitus, Memory Impairment Additional Past Medical History / Comment(s): LISINOPRIL FOR KIDNEYS/DM. 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
[2024-02-15] MEDS ORDERED: NON FORMULARY DRUG (Tirzepatide [Mounjaro] 7.5 MG/0.5 ML Pen.Injctr) SQ SCH (09:00)
== END 2024-02-11 15:31 | disposition home health service (06) ==
LOC: EC 19:51 → 3SCARD 21:53 → 3NCARDOBS 02-10 11:05 → 3SCARD 02-10 11:05
PROVIDERS: ADMIT Hospitalist; ATTEND Hospitalist
DX: G45.9 Transient cerebral ischemic attack, unspecified (principal); I69.311 Memory deficit following cerebral infarction; R29.700 NIHSS score 0; H53.9 Unspecified visual disturbance; E11.22 Type 2 diabetes mellitus with diabetic chronic kidney disease; E66.9 Obesity, unspecified; N32.89 Other specified disorders of bladder; E78.5 Hyperlipidemia, unspecified; I12.9 Hypertensive chronic kidney disease with stage 1 through stage 4 chronic kidney disease, or unspecified chronic kidney disease; J44.9 Chronic obstructive pulmonary disease, unspecified; N18.30 Chronic kidney disease, stage 3 unspecified; N28.1 Cyst of kidney, acquired; Z88.8 Allergy status to other drugs, medicaments and biological substances; Z79.4 Long term (current) use of insulin; Z79.85 Long-term (current) use of injectable non-insulin antidiabetic drugs; Z79.899 Other long term (current) drug therapy; Z87.891 Personal history of nicotine dependence; Z68.37 Body mass index [BMI] 37.0-37.9, adult; Z98.42 Cataract extraction status, left eye; Z98.41 Cataract extraction status, right eye
CPT/HCPCS: 96372 ×2; 99285; 36415; 93005; 93270; 97161; 97165; 80061; 80053; 82550; 85025; 85610; 85730; 81001; 83036; 76770; 70496; 70450; 70498; G0378 ×3; C8929; J1650 ×2; Q9957; Q9967; 93306

== ENCOUNTER → 2024-05-11 | Outpatient (CLI) | payer MEDICARE ==
[2024-05-11 19:32] LABS: Calcium 9.8 mg/dL (8.7-10.3)
[2024-05-12 12:18] LABS: Potato IgE <0.10 kU/L (<0.10); Potato IgE Class CLASS 0
== END | disposition home or self-care (01) ==
LOC: LABWHC1 14:59
PROVIDERS: ATTEND Psychiatry & Neurology Neurology
DX: M62.838 Other muscle spasm (principal); R53.1 Weakness; R20.2 Paresthesia of skin; R42 Dizziness and giddiness
CPT/HCPCS: 36415; 82310; 82607; 83735; 84295; 86003

== ENCOUNTER 2024-05-30 03:31 | Observation (INO) | payer MEDICARE ==
[2024-05-30] MEDS: ASPIRIN 81 MG PO STA (04:40)
[2024-05-30] MEDS: ONDANSETRON 4 MG/2 ML VIAL IVP STA ×2 (04:42→08:32)
[2024-05-30] MEDS: MORPHINE SULFATE 4 MG/ML SYRINGE IV STA (04:44)
[2024-05-30] MEDS: NITROGLYCERIN SL TABS 0.4 MG TAB SUBLINGUAL STA ×2 (04:44→06:42)
[2024-05-30 05:04] LABS: Basophils % (A) 0 %; Eosinophils # (A) 0.2 k/uL (0-0.7); Eosinophils % (A) 1 %; HCT 32.8 % (39.0-53.0); HGB 10.2 gm/dL (13.0-17.5); Lymphocytes # (A) 0.9 k/uL (1.0-4.8); Lymphocytes % (A) 5 %; MCH 28.9 pg (25.0-35.0); MCHC 31.1 g/dL (31.0-37.0); Mean Platelet Volume 7.8; Monocytes # (A) 0.7 k/uL (0-1.0); Monocytes % (A) 4 %; Neutrophils # (A) 14.6 k/uL (1.3-7.7); Neutrophils % (A) 88 %; Platelet Count 295 k/uL (150-450); RBC 3.53 m/uL (4.30-5.90); RDW 14.5 % (11.5-15.5); WBC 16.6 k/uL (3.8-10.6)
[2024-05-30 05:17] LABS: INR 0.9 (<1.2); Partial Thromboplastin Time 23.4 sec (22.0-30.0); Prothrombin Time 10.3 sec (10.0-12.5)
[2024-05-30 05:18] LABS: ALT 47 U/L (4-49); AST 33 U/L (17-59); African American GFR (CKD) 35 (>60 ml/min/1.73 sqM); Albumin 3.3 g/dL (3.5-5.0); Alkaline Phosphatase 138 U/L (38-126); Anion Gap 10 mmol/L; Blood Urea Nitrogen 42 mg/dL (9-20); Calcium 8.7 mg/dL (8.4-10.2); Carbon Dioxide 20 mmol/L (22-30); Chloride 105 mmol/L (98-107); Glucose 205 mg/dL (74-99); Lipase 200 U/L (23-300); Magnesium 1.9 mg/dL (1.6-2.3); Non-African American GFR(CKD) 31 (>60 ml/min/1.73 sqM); Potassium 4.6 mmol/L (3.5-5.1); Sodium 135 mmol/L (137-145); Total Bilirubin 0.5 mg/dL (0.2-1.3); Total Protein 6.7 g/dL (6.3-8.2)
[2024-05-30 05:27] LABS: NT-Pro-B-Type Natriuretic Pept 207 pg/mL
[2024-05-30 05:40] LABS: Influenza A Not Detected (Not Detectd); Influenza B Not Detected (Not Detectd); RSV Not Detected (Not Detectd)
--- NOTE | 2024-05-30 05:49 | ED ---
General Adult HPI - General Chief complaint: Shortness of Breath Stated complaint: FAVIOLA Time Seen by Provider: 05/30/24 03:45 Source: patient Mode of arrival: wheelchair Limitations: no limitations - History of Present Illness Initial comments: Patient is a 68-year-old gentleman presenting today for chest pressure radiating to his jaw bilaterally. Patient states that he was in bed tonight when he woke up with chest pressure. Worsens with deep breaths. Endorses cough nonproductive of sputum or hemoptysis. States he was recently treated for bronchitis with azithromycin and steroids about 1 week ago, was seen by his PCP on Friday. He discontinued his steroids due to patient's blood sugar becoming progressively higher. No pain meds prior to arrival. Endorses associated shortness of breath. No fevers or chills. States he is currently on Bactrim due to pain and swelling in an area where he previously had to have a soft tissue mass removed years ago. Denies nausea, vomiting, diarrhea, melena, hematochezia or abdominal pain. Notes mild GRAY. No LE edema. Nonsmoker. No first degree relatives with ACS/ prior CVA. - Related Data Home Medications Medication Instructions Recorded Confirmed Insulin Aspart [NovoLOG Flexpen] See Protocol SQ TID-W/MEALS 07/20/23 05/30/24 Insulin Glargine,Hum.rec.anlog 60 - 100 units SQ DAILY 07/20/23 05/30/24 [Suleman Peguero Solostthor] Oxybutynin Chloride [oxyBUTYnin 10 mg PO BID 02/09/24 05/30/24 chloride ER] Aspirin EC [Ecotrin] 325 mg PO DAILY 05/30/24 05/30/24 Omeprazole [PriLOSEC] 40 mg PO HS 05/30/24 05/30/24 Tirzepatide [Mounjaro] 10 mg SQ WE 05/30/24 05/30/24 Previous Rx's Medication Instructions Recorded Atorvastatin [Lipitor] 80 mg PO HS #30 tab 02/11/24 amLODIPine [Norvasc] 5 mg PO DAILY #30 tab 05/31/24 Allergies Allergy/AdvReac Type Severity Reaction Status Date / Time insulin lispro [From Humalog] AdvReac Diarrhea Verified 05/30/24 09:51 Review of Systems ROS Statement: Those systems with pertinent positive or pertinent negative responses have been documented in the HPI. ROS Other: All systems not noted in ROS Statement are negative. Past Medical History Past Medical History: COPD, CVA/TIA, Diabetes Mellitus, Memory Impairment Additional Past Medical History / Comment(s): LISINOPRIL FOR KIDNEYS/DM. 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 History of Any Multi-Drug Resistant Organisms: None Reported Past Surgical History: Orthopedic Surgery Additional Past Surgical History / Comment(s): LEFT KNEE Past Anesthesia/Blood Transfusion Reactions: No Reported Reaction Additional Past Anesthesia/Blood Transfusion Reaction / Comment(s): PRONE TO VERTIGO Past Psychological History: No Psychological Hx Reported Smoking Status: Former smoker Past Alcohol Use History: None Reported Past Drug Use History: None Reported General Exam - General Exam Comments Initial Comments: PE: CONSTITUTIONAL: [no apparent distress, well appearing] SKIN: [warm, dry, no jaundice, hives or petechiae. Mildly erythematous, firm, rubbery mass posterior right shoulder] EYES:[ pupils are equally round, extraocular movements intact without nystagmus, clear conjunctiva, non-icteric sclera] HENT: [normocephalic, atraumatic, moist mucus membranes, oropharynx clear witho ut exudates] NECK: , [Full range of motion, normal appearance] PULMONARY: [clear to auscultation without wheezes, rhonchi, or rales, normal excursion, no accessory muscle use and no stridor] CARDIOVASCULAR:[ regular rate, rhythm, normal S1 and S2. No appreciated murmurs, rubs or gallops. Strong radial pulses with intact distal perfusion. No lower extremity edema] GASTROINTESTINAL: [soft, active bowel sounds throughout, non-tender, non- distended, no palpable masses, no rebound or guarding. No hepatosplenomegaly] GENITOURINARY: MUSCULOSKELETAL: [Extremities have no gross deformity, no edema, redness, or swelling. No calf swelling ] NEUROLOGIC: [_a/o x 3, GCS 15, normal mentation and speech. Moves all extremities x 4 without motor or sensory deficit] PSYCHIATRIC:[ _normal mood and affect, thought process is clear and linear] Limitations: no limitations Course Vital Signs 05/30/24 05/30/24 05/30/24 03:36 06:28 08:31 Temperature 98.5 F Pulse Rate 72 64 62 Respiratory 22 17 20 Rate Blood Pressure 171/86 98/56 107/73 O2 Sat by Pulse 99 98 95 Oximetry 05/30/24 05/30/24 05/30/24 10:46 11:00 12:00 Temperature 98.4 F Pulse Rate 101 H 98 Respiratory Rate Blood Pressure O2 Sat by Pulse 100 95 97 Oximetry 05/30/24 05/30/24 05/30/24 13:00 14:00 15:09 Temperature Pulse Rate Respiratory Rate Blood Pressure 128/78 O2 Sat by Pulse 96 97 Oximetry 05/30/24 05/30/24 05/30/24 15:59 17:00 18:35 Temperature 98.6 F Pulse Rate 57 L 61 Respiratory 19 19 Rate Blood Pressure 161/91 126/74 O2 Sat by Pulse 96 97 Oximetry 05/30/24 18:36 Temperature Pulse Rate 62 Respiratory 18 Rate Blood Pressure 128/75 O2 Sat by Pulse 96 Oximetry EKG Findings - EKG Comments: EKG Findings:: Sinus rhythm with short HI interval, rate 73 bpm HI interval 114 ms QRS duration 92 ms QT/QTc 357/383 ms, significant artifact present throughout limiting interpretation, no clear ST elevations or depressions, no STEMI. Sinus rhythm, rate 62 bpm HI interval 122 ms QT/QTc 389/393 ms, Q-wave lead V1, V2, present on earlier EKG, no new ST elevations or depressions, no STEMI, no arrhythmia Medical Decision Making - Medical Decision Making Was pt. sent in by a medical professional or institution (REHANA Patterson, TAPE TRANSFERRER, urgent care, hospital, or custodial...) When possible be specific @ -No Did you speak to anyone other than the patient for history (EMS, parent, family, police, friend...)? What history was obtained from this source @ -No Did you review nursing and triage notes (agree or disagree)? Why? @ -I reviewed nursing and triage notes Were old charts reviewed (outside hosp., previous admission, EMS record, old EKG, old radiological studies, urgent care reports/EKG's, custodial records)? Report findings @ -Medical records reviewed patient had a cardiac event monitor done 02/11/2024, report did show an episode of complete heart block and a 5 beat run of nonsustai brennon V. tach Differential Diagnosis (chest pain, altered mental status, abdominal pain women, abdominal pain men, vaginal bleeding, weakness, fever, dyspnea, syncope, headache, dizziness, GI bleed, back pain, seizure, CVA, palpatations, mental health, musculoskeletal)? @Differential Chest Pain: Stable Angina, Unstable Angina, STEMI, NSTEMI Aortic Dissection, pericarditis, pleurisy, chostochondirits, Pneumothorax, Musculoskeletal, Esophageal Spasm GERD, Cholecystitis, Pancreatitis, Zoster, this is not meant to be an all- inclusive list. EKG interpreted by me (3pts min.). @ -As above X-rays interpreted by me (1pt min.). Personally reviewed CXR, Appears to have mild cardiomegaly, possible vascular prominence, no pneumothorax CT interpreted by me (1pt min.). @ -None done U/S interpreted by me (1pt. min.). @ -None done What testing was considered but not performed or refused? (CT, X-rays, U/S, labs)? Why? @ -CT PE study was considered however patient has had progressively declining GFR so we will have ultrasounds of the bilateral lower extremities and be admitted for VQ scan and chest pain What meds were considered but not given or refused? Why? @ -None Did you discuss the management of the patient with other professionals (professionals i.e. , PA, TAPE TRANSFERRER, lab, RT, psych nurse, renal social worker, secretary office clerk, teacher, rating officer, manager case management)? Give summary @ -No Was smoking cessation discussed for >3mins.? @ -No Was critical care preformed (if so, how long)? @ -No Were there social determinants of health that impacted care today? How? (Homelessness, low income, unemployed, alcoholism, drug addiction, transportation, low edu. Level, literacy, decrease access to med. care, residential, re hab)? @ -No Was there de-escalation of care discussed even if they declined (Discuss DNR or withdrawal of care, Hospice)? @ -No What co-morbidities impacted this encounter? (DM, HTN, Smoking, COPD, CAD, Cancer, CVA, ARF, Chemo, Hep., AIDS, mental health diagnosis, sleep apnea, morbid obesity)? @COPD, CVA, diabetes Was patient admitted / discharged? Hospital course, mention meds given and route, prescriptions, significant lab abnormalities, going to OR and other pertinent info. @ -Admission-this is a pleasant 68 gentleman history of prior CVA, diabetes, COPD presenting today for chest pressure radiating to his jaw bilaterally. States recently treated for bronchitis. On my assessment patient is well- appearing in no acute distress.Mildly hypertensive with blood pressure 171/86, pulse ox 99%, pulse 72 temperature 98.5 degrees. Lungs are clear to auscultation bilaterally without wheezes or rhonchi. No lower extremity swelling. Discussed with patient plan for pain control labs, EKG, agreeable plan. D-dimer 1.07. Patient's GFR is 30 which is progressively decreasing from prior. For this reason a CT PE study would not be ordered. Troponin is undetectable, creatinine 2.16, white blood cell 16.6 I suspect this is secondary to recent steroid use as opposed to acute infectious process. Plan for bilateral US for DVT and V/Q scan in lieu of CT PE study. On reassessment pt endorsed only brief improvement of pain, though still rates as 5/10. Repeat SL nitro trialed without any improvement. Additional morphine ordered. Updated pt to findings thus far and plan for admission for chest pain obs and V/Q scan, pt and agreeable with POC. Pt did result with COVID+ result on cepheid panel. Though likely pleuritic chest pain from COVID 19, pt will require a V/Q scan to further evaluate for PE and further observation period due to elevated HEART score, 6. Case discussed with JHOANA Valdez, kindly accepts patient for admission. Undiagnosed new problem with uncertain prognosis? @ -No Drug Therapy requiring intensive monitoring for toxicity (Heparin, Nitro, Insulin, Cardizem)? @ -No Were any procedures done? @ -No Diagnosis/symptom? @ Chest pain, COVID19, shortness of breath Acute, or Chronic, or Acute on Chronic? @ acute Uncomplicated (without systemic symptoms) or Complicated (systemic symptoms)? @ -complicated Side effects of treatment? @ -No Exacerbation, Progression, or Severe Exacerbation? @ -No Poses a threat to life or bodily function? How? (Chest pain, [place], [place], pneumonia, PE, COPD, DKA, ARF, appy, cholecystitis, CVA, Diverticulitis, Homicidal, Suicidal, threat to staff... and all critical care pts) @Yes, potentially - Lab Data Result diagrams: 05/30/24 04:53 05/30/24 04:53 Lab Results 05/30/24 05/30/24 05/30/24 Range/Units 04:53 04:53 04:53 WBC 16.6 H (3.8-10.6) k/uL RBC 3.53 L (4.30-5.90) m/uL Hgb 10.2 L (13.0-17.5) gm/dL Hct 32.8 L (39.0-53.0) % MCV 93.0 (80.0-100.0) fL MCH 28.9 (25.0-35.0) pg MCHC 31.1 (31.0-37.0) g/dL RDW 14.5 (11.5-15.5) % Plt Count 295 (150-450) k/uL MPV 7.8 Neutrophils % 88 % Lymphocytes % 5 % Monocytes % 4 % Eosinophils % 1 % Basophils % 0 % Neutrophils # 14.6 H (1.3-7.7) k/uL Lymphocytes # 0.9 L (1.0-4.8) k/uL Monocytes # 0.7 (0-1.0) k/uL Eosinophils # 0.2 (0-0.7) k/uL Basophils # 0.0 (0-0.2) k/uL ESR (0-20) mm/Hr PT 10.3 (10.0-12.5) sec INR 0.9 (<1.2) APTT 23.4 (22.0-30.0) sec D-Dimer 1.02 H (<0.60) mg/L FEU Sodium 135 L (137-145) mmol/L Potassium 4.6 (3.5-5.1) mmol/L Chloride 105 (98-107) mmol/L Carbon Dioxide 20 L (22-30) mmol/L Anion Gap 10 mmol/L BUN 42 H (9-20) mg/dL Creatinine 2.16 H (0.66-1.25) mg/dL Est GFR (CKD-EPI)AfAm 35 (>60 ml/min/1.73 sqM) Est GFR (CKD-EPI)NonAf 31 (>60 ml/min/1.73 sqM) Glucose 205 H (74-99) mg/dL Calcium 8.7 (8.4-10.2) mg/dL Magnesium 1.9 (1.6-2.3) mg/dL Total Bilirubin 0.5 (0.2-1.3) mg/dL AST 33 (17-59) U/L ALT 47 (4-49) U/L Alkaline Phosphatase 138 H (38-126) U/L Troponin I (0.000-0.034) ng/mL C-Reactive Protein (0.00-0.80) mg/dL NT-Pro-B Natriuret Pep 207 pg/mL Total Protein 6.7 (6.3-8.2) g/dL Albumin 3.3 L (3.5-5.0) g/dL Lipase 200 (23-300) U/L Influenza Type A (PCR) (Not Detectd) Influenza Type B (PCR) (Not Detectd) RSV (PCR) (Not Detectd) SARS-CoV-2 (PCR) (Not Detectd) 05/30/24 05/30/24 05/30/24 Range/Units 04:53 04:53 04:53 WBC (3.8-10.6) k/uL RBC (4.30-5.90) m/uL Hgb (13.0-17.5) gm/dL Hct (39.0-53.0) % MCV (80.0-100.0) fL MCH (25.0-35.0) pg MCHC (31.0-37.0) g/dL RDW (11.5-15.5) % Plt Count (150-450) k/uL MPV Neutrophils % % Lymphocytes % % Monocytes % % Eosinophils % % Basophils % % Neutrophils # (1.3-7.7) k/uL Lymphocytes # (1.0-4.8) k/uL Monocytes # (0-1.0) k/uL Eosinophils # (0-0.7) k/uL Basophils # (0-0.2) k/uL ESR 77 H (0-20) mm/Hr PT (10.0-12.5) sec INR (<1.2) APTT (22.0-30.0) sec D-Dimer (<0.60) mg/L FEU Sodium (137-145) mmol/L Potassium (3.5-5.1) mmol/L Chloride (98-107) mmol/L Carbon Dioxide (22-30) mmol/L Anion Gap mmol/L BUN (9-20) mg/dL Creatinine (0.66-1.25) mg/dL Est GFR (CKD-EPI)AfAm (>60 ml/min/1.73 sqM) Est GFR (CKD-EPI)NonAf (>60 ml/min/1.73 sqM) Glucose (74-99) mg/dL Calcium (8.4-10.2) mg/dL Magnesium (1.6-2.3) mg/dL Total Bilirubin (0.2-1.3) mg/dL AST (17-59) U/L ALT (4-49) U/L Alkaline Phosphatase (38-126) U/L Troponin I <0.012 (0.000-0.034) ng/mL C-Reactive Protein (0.00-0.80) mg/dL NT-Pro-B Natriuret Pep pg/mL Total Protein (6.3-8.2) g/dL Albumin (3.5-5.0) g/dL Lipase (23-300) U/L Influenza Type A (PCR) Not Detected (Not Detectd) Influenza Type B (PCR) Not Detected (Not Detectd) RSV (PCR) Not Detected (Not Detectd) SARS-CoV-2 (PCR) Detected A (Not Detectd) 05/30/24 Range/Units 04:53 WBC (3.8-10.6) k/uL RBC (4.30-5.90) m/uL Hgb (13.0-17.5) gm/dL Hct (39.0-53.0) % MCV (80.0-100.0) fL MCH (25.0-35.0) pg MCHC (31.0-37.0) g/dL RDW (11.5-15.5) % Plt Count (150-450) k/uL MPV Neutrophils % % Lymphocytes % % Monocytes % % Eosinophils % % Basophils % % Neutrophils # (1.3-7.7) k/uL Lymphocytes # (1.0-4.8) k/uL Monocytes # (0-1.0) k/uL Eosinophils # (0-0.7) k/uL Basophils # (0-0.2) k/uL ESR (0-20) mm/Hr PT (10.0-12.5) sec INR (<1.2) APTT (22.0-30.0) sec D-Dimer (<0.60) mg/L FEU Sodium (137-145) mmol/L Potassium (3.5-5.1) mmol/L Chloride (98-107) mmol/L Carbon Dioxide (22-30) mmol/L Anion Gap mmol/L BUN (9-20) mg/dL Creatinine (0.66-1.25) mg/dL Est GFR (CKD-EPI)AfAm (>60 ml/min/1.73 sqM) Est GFR (CKD-EPI)NonAf (>60 ml/min/1.73 sqM) Glucose (74-99) mg/dL Calcium (8.4-10.2) mg/dL Magnesium (1.6-2.3) mg/dL Total Bilirubin (0.2-1.3) mg/dL AST (17-59) U/L ALT (4-49) U/L Alkaline Phosphatase (38-126) U/L Troponin I (0.000-0.034) ng/mL C-Reactive Protein 6.60 H (0.00-0.80) mg/dL NT-Pro-B Natriuret Pep pg/mL Total Protein (6.3-8.2) g/dL Albumin (3.5-5.0) g/dL Lipase (23-300) U/L Influenza Type A (PCR) (Not Detectd) Influenza Type B (PCR) (Not Detectd) RSV (PCR) (Not Detectd) SARS-CoV-2 (PCR) (Not Detectd) Disposition Clinical Impression: COVID-19, Pleuritic chest pain Disposition: ADMITTED IP TO THIS [facility] Condition: Good
[2024-05-30] MEDS: ACETAMINOPHEN TAB 500 MG TAB PO STA (06:42)
[2024-05-30] MEDS ORDERED: CALCIUM CARBONATE 500 MG CHEWABLE PO PRN (07:05)
[2024-05-30] MEDS ORDERED: traMADol 50 MG TAB PO PRN (07:05)
[2024-05-30] MEDS ORDERED: NALOXONE 0.4 MG/ML 1 ML VIAL IV PRN (07:05)
[2024-05-30] MEDS ORDERED: MORPHINE SULFATE 4 MG/ML SYRINGE IV PRN (07:05)
--- NOTE | 2024-05-30 07:08 | XR ---
EXAMINATION TYPE: XR chest 2V DATE OF EXAM: 05/30/2024 6:53 AM COMPARISON: Chest radiographs from 08/24/2017, CT chest 10/03/2020 TECHNIQUE: XR chest 2V Frontal and lateral views of the chest. CLINICAL INDICATION:Male, 68 years old with history of positive D dimer, shortness of breath; FINDINGS: Lungs/Pleura: There is no evidence of pleural effusion, focal consolidation, or pneumothorax. Pulmonary vascularity: Unremarkable. Heart/mediastinum: Cardiomediastinal silhouette is prominent in size. Musculoskeletal: No acute osseous pathology. Other: Loop recorder within the anterior left chest. IMPRESSION: No acute cardiopulmonary disease/process. [facility], , 05/30/2024 7:06 AM
--- NOTE | 2024-05-30 08:26 | US ---
EXAMINATION TYPE: US venous doppler duplex LE BI DATE OF EXAM: 05/30/2024 8:01 AM COMPARISON: NONE CLINICAL INDICATION: Male, 68 years old with history of positive D dimer, shortness of breath; elevat ed D dimer, Pain TECHNIQUE: The lower extremity deep venous system is examined utilizing real time linear array sonog jarek with graded compression, color doppler sonography, and spectral doppler. SIDE PERFORMED: Bilateral FINDINGS: VESSELS IMAGED: Common Femoral Vein Deep Femoral Vein Greater Saphenous Vein * Femoral Vein Popliteal Vein Small Saphenous Vein * Proximal Calf Veins (* superficial vessels) Right Leg: Negative for DVT, Color Doppler imaging shows patency of the vessels. Spectral waveforms are within normal limits. Left Leg: Negative for DVT, Color Doppler imaging shows patency of the vessels. Spectral waveforms a re within normal limits. IMPRESSION: No ultrasound evidence for deep venous thrombosis. [facility], , 05/30/2024 8:24 AM
[2024-05-30] MEDS: MORPHINE SULFATE 4 MG/ML SYRINGE IVP STA (08:35)
[2024-05-30] MEDS: HEPARIN SODIUM,PORCINE 5,000 UNIT/ML 1 ML VIAL SQ SCH (08:36)
[2024-05-30] MEDS: FAMOTIDINE 20 MG TAB PO SCH (08:38)
[2024-05-30 09:00] LABS: Glucose,Whole Blood 227 mg/dL (70-110)
--- NOTE | 2024-05-30 09:50 | NM ---
EXAMINATION TYPE: NM pul perfusion DATE OF EXAM: 05/30/2024 COMPARISON: Chest radiograph 05/30/2024 CLINICAL INDICATION: Male, 68 years old with history of elevated dimer, CKD; Following administration of 5.4 mCi Tc 99m MAA. Images obtained post injection. TECHNIQUE: The lung perfusion portion of the study was performed after intervenous injection of 5.4 m Ci of technetium 99 MAA (macroaggregated albumin). The ventilatory portion of the study was now perfo rmed. FINDING: The initial flow demonstrates no evidence of any flow abnormalities. There is symmetrical and homogen ous flow to the lung cabrera bilaterally. IMPRESSION: PE absent by perfusion only modified PIOPED II criteria [facility], , 05/30/2024 9:47 AM
[2024-05-30] MEDS: ONDANSETRON 4 MG/2 ML VIAL IVP PRN (10:41)
[2024-05-30] MEDS: MAG HYDROX/AL HYDROX/SIMETH 30 ML CUP PO PRN (16:11)
--- NOTE | 2024-05-30 17:02 | P.CRDCN ---
History of Present Illness Consult date: 05/30/24 Consult reason: chest pain Chief complaint: Chest pain, shortness of breath History of present illness: History of present illness: Patient is a pleasant 68-year-old male with significant past medical history of hypertension, diabetes, former smoker who presented with complaints of chest pain. He has not been feeling well over the past few days and had been on antibiotics and steroids last week for an upper respiratory infection. Today he developed severe chest pain that was worse with taking a deep breath and sh ortness of breath. He does report feeling chills and dizziness. He was positive for COVID. He got nauseous and vomited with the morphine. He also reports that he has a cyst on his back that was removed approximately 1 year ago but appears to be reaccumulating and causing pain. He is started on Bactrim due to this. He was admitted back in January 2024 with strokelike symptoms. Workup at that time including echo 01/2024 with a EF 55-60%, no significant valve issues. CTA head and neck with no flow-limiting stenosis of bilateral carotids. He then wore an outpatient event monitor for 2 weeks which showed sinus rhythm with PACs and PVCs, no atrial fibrillation, did report 3.4-second pause. EKG today shows sinus rhythm. Labs reviewed: WBC 16.6, hemoglobin 10.2, D-dimer 1.02, creatinine 2.16, troponin negative x 3, BNP 207. Venous Doppler negative for DVT bilateral lower extremities. Nuclear medicine pulmonary perfusion study was negative for pulmonary embolism. His pain is worse when he is laying down and better when he is laying forward. EKG concerning for possible pericarditis. REVIEW OF SYSTEMS: No fever or chills. No cough or expectoration. No diaphoresis. Patient denies headache, dizziness, blurred vision, double vision. Patient denies any stomach discomfort. No hematochezia. No hematemesis. Denies any black stools or blood in his stools. Denies dysuria or hematuria. No muscle weakness or numbness. Reports chest pain and shortness of breath. Reports nausea vomiting PHYSICAL EXAMINATION: This is a 68-year-old male in no apparent distress at the time of my examination. HEENT: Head is atraumatic, normocephalic. Pupils are equal, round. Sclerae anicteric. Conjunctivae are clear. Mucous membranes of the mouth are moist. Neck is supple. There is no jugular venous distention. No carotid bruit is heard. CHEST EXAMINATION: Lungs are diminished. No chest wall tenderness is noted on palpation or with deep breathing. HEART EXAMINATION: Heart regular rate and rhythm. S1, S2 heard. No murmurs, gallops or rub. ABDOMEN: Soft, nontender. Bowel sounds are heard. EXTREMITIES: 2+ peripheral pulses with no evidence of peripheral edema and no calf tenderness noted. NEUROLOGIC EXAMINATION: Patient is awake, alert and oriented x3. IMPRESSION AND PLAN: Hypertension Diabetes type 2 Former tobacco abuse Positive COVID 19 infection Chest pain Shortness of breath PLAN: Repeat EKG as initial EKG shows possible pericarditis. Will try Maalox. Check sed rate and CRP. Symptoms may also be related to medication side effects from Mounjaro. Further recommendations pending clinical course. I am dictating on behalf of Dr. Bob Rm's history/physical and assessment/plan. Past Medical History Past Medical History: COPD, CVA/TIA, Diabetes Mellitus, Memory Impairment Additional Past Medical History / Comment(s): LISINOPRIL FOR KIDNEYS/DM. 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 History of Any Multi-Drug Resistant Organisms: None Reported Past Surgical History: Orthopedic Surgery Additional Past Surgical History / Comment(s): LEFT KNEE Past Anesthesia/Blood Transfusion Reactions: No Reported Reaction Additional Past Anesthesia/Blood Transfusion Reaction / Comment(s): PRONE TO VERTIGO Past Psychological History: No Psychological Hx Reported Smoking Status: Former smoker Past Alcohol Use History: None Reported Past Drug Use History: None Reported Medications and Allergies Home Medications Medication Instructions Recorded Confirmed Type Insulin Aspart [NovoLOG Flexpen] See Protocol SQ TID-W/MEALS 07/20/23 05/30/24 H istory Insulin Glargine,Hum.rec.anlog 60 - 100 units SQ DAILY 07/20/23 05/30/24 History [Toujeo Max Solostar] Oxybutynin Chloride [oxyBUTYnin 10 mg PO BID 02/09/24 05/30/24 History chloride ER] Atorvastatin [Lipitor] 80 mg PO HS #30 tab 02/11/24 05/30/24 Rx Chlorthalidone 25 mg PO DAILY #30 tablet 02/11/24 05/30/24 Rx Losartan [Cozaar] 50 mg PO DAILY #30 tab 02/11/24 05/30/24 Rx Aspirin EC [Ecotrin] 325 mg PO DAILY 05/30/24 05/30/24 History Omeprazole [PriLOSEC] 40 mg PO HS 05/30/24 05/30/24 History Sulfamethox-Tmp 800-160Mg [Bactrim 1 tab PO Q12HR 05/30/24 05/30/24 History DS 800-160 mg] Tirzepatide [Mounjaro] 10 mg SQ WE 05/30/24 05/30/24 History Allergies Allergy/AdvReac Type Severity Reaction Status Date / Time insulin lispro [From Humalog] AdvReac Diarrhea Verified 05/30/24 09:51 Physical Exam Vitals: Vital Signs Temp Pulse Resp BP Pulse Ox 05/30/24 10:46 101 H 100 05/30/24 08:31 62 20 107/73 95 05/30/24 06:28 64 17 98/56 98 05/30/24 03:36 98.5 F 72 22 171/86 99 Intake and Output 05/29/24 05/30/24 05/30/24 22:59 06:59 14:59 Other: Weight 125.191 kg Results 05/30/24 04:53 05/30/24 04:53 Cardiac Enzymes 05/30/24 05/30/24 05/30/24 Range/Units 04:53 04:53 08:08 AST 33 (17-59) U/L Troponin I <0.012 <0.012 (0.000-0.034) ng/mL 05/30/24 Range/Units 11:15 AST (17-59) U/L Troponin I <0.012 (0.000-0.034) ng/mL Coagulation 05/30/24 Range/Units 04:53 PT 10.3 (10.0-12.5) sec APTT 23.4 (22.0-30.0) sec CBC 05/30/24 Range/Units 04:53 WBC 16.6 H (3.8-10.6) k/uL RBC 3.53 L (4.30-5.90) m/uL Hgb 10.2 L (13.0-17.5) gm/dL Hct 32.8 L (39.0-53.0) % Plt Count 295 (150-450) k/uL Comprehensive Metabolic Panel 05/30/24 Range/Units 04:53 Sodium 135 L (137-145) mmol/L Potassium 4.6 (3.5-5.1) mmol/L Chloride 105 (98-107) mmol/L Carbon Dioxide 20 L (22-30) mmol/L BUN 42 H (9-20) mg/dL Creatinine 2.16 H (0.66-1.25) mg/dL Glucose 205 H (74-99) mg/dL Calcium 8.7 (8.4-10.2) mg/dL AST 33 (17-59) U/L ALT 47 (4-49) U/L Alkaline Phosphatase 138 H (38-126) U/L Total Protein 6.7 (6.3-8.2) g/dL Albumin 3.3 L (3.5-5.0) g/dL Current Medications Generic Name Dose Route Start Last Admin Trade Name Freq PRN Reason Stop Dose Admin Acetaminophen 650 mg 05/30/24 12:00 Acetaminophen Tab 325 Mg Tab PO Q6HR PRN Mild Pain or Fever > 100.5 Al Hydroxide/Mg Hydroxide 15 ml 05/30/24 07:05 Mag Hydrox/Al Hydrox/Simeth 30 Ml Cup PO Q6HR PRN Indigestion Calcium Carbonate/Glycine 1,000 mg 05/30/24 07:05 Calcium Carbonate 500 Mg Chewable PO Q4HR PRN Dyspepsia Famotidine 20 mg 05/30/24 09:00 05/30/24 08:38 Famotidine 20 Mg Tab PO 20 mg BID SCOTTIE Administration Heparin Sodium (Porcine) 5,000 unit 05/30/24 08:00 05/30/24 08:36 Heparin Sodium,Porcine 5,000 Unit/Ml 1 Ml Vial SQ 5,000 unit Q8HR SCOTTIE Administration Morphine Sulfate 4 mg 05/30/24 07:05 Morphine Sulfate 4 Mg/Ml Syringe IV Q4HR PRN Severe Pain (Scale 7 to 10) Naloxone HCl 0.2 mg 05/30/24 07:05 Naloxone 0.4 Mg/Ml 1 Ml Vial IV Q2M PRN Opioid Reversal Ondansetron HCl 4 mg 05/30/24 07:05 05/30/24 10:41 Ondansetron 4 Mg/2 Ml Vial IVP 4 mg Q8HR PRN Administration Nausea And Vomiting Tramadol HCl 50 mg 05/30/24 07:05 Tramadol 50 Mg Tab PO Q6H PRN Moderate Pain (Scale 4 to 6) Intake and Output 05/29/24 05/30/24 05/30/24 22:59 06:59 14:59 Other: Weight 125.191 kg 05/30/24 04:53 05/30/24 04:53
[2024-05-30 19:58] LABS: Glucose,Whole Blood 281 mg/dL (70-110)
[2024-05-30] MEDS: ACETAMINOPHEN TAB 325 MG TAB PO PRN (23:56)
[2024-05-31 05:44] LABS: Glucose,Whole Blood 177 mg/dL (70-110)
[2024-05-31 07:58] VITALS: BP 130/78; PULSE 60; RESP 16; TEMP 98.4
[2024-05-31] MEDS: FAMOTIDINE 20 MG TAB PO SCH (09:28)
--- NOTE | 2024-05-31 10:15 | P.PN ---
Subjective Progress Note Date: 05/31/24 Consult reason: chest pain Chief complaint: Chest pain, shortness of breath History of present illness: Patient is a pleasant 68-year-old male with significant past medical history of hypertension, diabetes, former smoker who presented with complaints of chest pain. He has not been feeling well over the past few days and had been on antibiotics and steroids last week for an upper respiratory infection. Today he developed severe chest pain that was worse with taking a deep breath and shortness of breath. He does report feeling chills and dizziness. He was positive for COVID. He got nauseous and vomited with the morphine. He also reports that he has a cyst on his back that was removed approximately 1 year ago but appears to be reaccumulating and causing pain. He is started on Bactrim due to this. He was admitted back in January 2024 with strokelike symptoms. Workup at that time including echo 01/2024 with a EF 55-60%, no significant valve issues. CTA head and neck with no flow-limiting stenosis of bilateral carotids. He then wore an outpatient event monitor for 2 weeks which showed sinus rhythm with PACs and PVCs, no atrial fibrillation, did report 3.4-second pause. EKG today shows sinus rhythm. Labs reviewed: WBC 16.6, hemoglobin 10.2, D-dimer 1.02, creatinine 2.16, troponin negative x 3, BNP 207. Venous Doppler negative for DVT bilateral lower extremities. Nuclear medicine pulmonary perfusion study was negative for pulmonary embolism. His pain is worse when he is laying down and better when he is laying forward. EKG concerning for possible pericarditis. / Patient seen and examined. EKG repeated this morning reveals early repolarization. Blood pressure 134/75, heart rate 58, pulse ox 98% on room air. Patient denies any chest pain or chest pressure. No shortness of breath. Sed rate 77. PHYSICAL EXAMINATION: This is a 68-year-old male in no apparent distress at the time of my examination. HEENT: Head is atraumatic, normocephalic. Pupils are equal, round. Sclerae anicteric. Conjunctivae are clear. Mucous membranes of the mouth are moist. Neck is supple. There is no jugular venous distention. No carotid bruit is heard. CHEST EXAMINATION: Lungs are diminished. No chest wall tenderness is noted on palpation or with deep breathing. HEART EXAMINATION: Heart regular rate and rhythm. S1, S2 heard. No murmurs, gallops or rub. ABDOMEN: Soft, nontender. Bowel sounds are heard. EXTREMITIES: 2+ peripheral pulses with no evidence of peripheral edema and no calf tenderness noted. NEUROLOGIC EXAMINATION: Patient is awake, alert and oriented x3. IMPRESSION AND PLAN: Hypertension Diabetes type 2 Former tobacco abuse Positive COVID 19 infection Chest pain Shortness of breath PLAN: Symptoms may also be related to medication side effects from Mounjaro. No further cardiac workup at this time. Cardiology will sign off this case and follow on an as-needed basis. Please reconsult for any new concerns. Nurse practitioner note has been reviewed, I agree with documented findings and plan of care. Patient was seen and examined. Objective - Vital Signs Vital signs: Vital Signs Temp 98.3 F 05/31/24 00:45 Pulse 58 L 05/31/24 00:45 Resp 18 05/31/24 00:45 BP 134/75 05/31/24 00:45 Pulse Ox 98 05/31/24 00:45 FiO2 Intake & Output 05/30/24 05/31/24 05/31/24 18:59 06:59 18:59 Weight 125.191 kg Other: Voiding Method Toilet # Voids 4 - Labs CBC & Chem 7: 05/30/24 04:53 05/30/24 04:53 Labs: Abnormal Lab Results - Last 24 Hours (Table) 05/30/24 05/30/24 05/30/24 Range/Units 04:53 08:58 19:57 ESR 77 H (0-20) mm/Hr POC Glucose (mg/dL) 227 H 281 H (70-110) mg/dL 05/31/24 Range/Units 05:42 ESR (0-20) mm/Hr POC Glucose (mg/dL) 177 H (70-110) mg/dL
[2024-05-31 12:14] LABS: Glucose,Whole Blood 214 mg/dL (70-110)
--- NOTE | 2024-05-31 13:24 | P.HPIM ---
History of Present Illness Patient is a 71-year-old male came with complaints of chest pain which is pleuritic in nature increases with deep breathing. Patient had a VQ scan which was negative. Patient denied any significant shortness of breath patient is found to be COVID-positive with the COVID-19 patient had a chest x-ray which did not show any pneumonia. Patient is overall clinically doing well but still has some chest pain visit was eval by cardiology rule out acute coronary syndromes that cleared him for discharge. Patient also has a Doppler of bilateral lower extremities negative for venous thromboembolism patient is also in acute renal failure with creatinine going up to 2.1 baseline creatinine appears to be 1.4 patient's creatinine is consistently going up for last few months and patient is on multiple medications that can affect the kidney which includes chlorthalidone, losartan, Bactrim. Patient was started on Bactrim because of her cyst in the back. This is does not appear to be infected because of which I will discontinue Bactrim. Patient is also on losartan unknown whether patient has a proteinuria. REVIEW OF SYSTEMS: All other systems are negative except those mentioned in the HPI PHYSICAL EXAMINATION: GENERAL: The patient is alert and oriented x3, not in any acute distress. Well developed, well nourished. HEENT: Pupils are round and equally reacting to light. EOMI. No scleral icterus. No conjunctival pallor. Normocephalic, atraumatic. No pharyngeal erythema. No thyromegaly. CARDIOVASCULAR: S1 and S2 present. No murmurs, rubs, or gallops. PULMONARY: Chest is clear to auscultation, no wheezing or crackles. ABDOMEN: Soft, nontender, nondistended, normoactive bowel sounds. No palpable organomegaly. MUSCULOSKELETAL: No joint swelling or deformity. EXTREMITIES: No cyanosis, clubbing, or pedal edema. NEUROLOGICAL: Gross neurological examination did not reveal any focal deficits. SKIN: No rashes. Assessment and plan -Chest pain rule out acute coronary syndromes cardiology evaluate the patient th ey cleared him for discharge. Chest pain appears to be musculoskeletal in nature as to take as needed Tylenol -Ruled out pulmonary embolism and pneumonia. -Acute renal failure on chronic kidney disease stage IIIb: Acute renal failure may be related to medications Bactrim chlorthalidone and losartan were discontinued. If patient has proteinuria can consider restarting on losartan once his kidney function stabilizes although chlorthalidone may not be beneficial considering his poor renal function. Will repeat basic metabolic profile in about 3 to 4 days by the time his kidney function is expected to improve. -Type 2 diabetes mellitus uncontrolled elevated blood sugars as he did not receive his insulin patient will be resumed on insulin and will also continue with his Mounjaro. -Infection without any hypoxemia -CVA/TIA in the past -Leukocytosis secondary to COVID-19 Patient will be discharged today Today actually does a problem he can protect renal Past Medical History Past Medical History: COPD, CVA/TIA, Diabetes Mellitus, Memory Impairment Additional Past Medical History / Comment(s): LISINOPRIL FOR KIDNEYS/DM. 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 History of Any Multi-Drug Resistant Organisms: None Reported Past Surgical History: Orthopedic Surgery Additional Past Surgical History / Comment(s): LEFT KNEE Past Anesthesia/Blood Transfusion Reactions: No Reported Reaction Additional Past Anesthesia/Blood Transfusion Reaction / Comment(s): PRONE TO VERTIGO Past Psychological History: No Psychological Hx Reported Smoking Status: Former smoker Past Alcohol Use History: None Reported Past Drug Use History: None Reported Medications and Allergies Home Medications Medication Instructions Recorded Confirmed Type Insulin Aspart [NovoLOG Flexpen] See Protocol SQ TID-W/MEALS 07/20/23 05/30/24 History Insulin Glargine,Hum.rec.anlog 60 - 100 units SQ DAILY 07/20/23 05/30/24 History [Toujeo Max Solostar] Oxybutynin Chloride [oxyBUTYnin 10 mg PO BID 02/09/24 05/30/24 History chloride ER] Atorvastatin [Lipitor] 80 mg PO HS #30 tab 02/11/24 05/30/24 Rx Aspirin EC [Ecotrin] 325 mg PO DAILY 05/30/24 05/30/24 History Omeprazole [PriLOSEC] 40 mg PO HS 05/30/24 05/30/24 History Tirzepatide [Mounjaro] 10 mg SQ WE 05/30/24 05/30/24 History amLODIPine [Norvasc] 5 mg PO DAILY #30 tab 05/31/24 Rx Allergies Allergy/AdvReac Type Severity Reaction Status Date / Time insulin lispro [From Humalog] AdvReac Diarrhea Verified 05/30/24 09:51 Physical Exam Vitals: Vital Signs Temp Pulse Pulse Resp BP BP Pulse Ox 05/31/24 07:35 98.4 F 60 16 130/78 94 L 05/31/24 00:45 98.3 F 58 L 18 134/75 98 05/30/24 19:00 98.4 F 59 L 20 160/83 97 05/30/24 18:36 62 18 128/75 96 05/30/24 18:35 98.6 F 05/30/24 17:00 61 19 126/74 97 05/30/24 15:59 57 L 19 161/91 96 05/30/24 15:09 128/78 05/30/24 14:00 97 Intake and Output 05/30/24 05/31/24 05/31/24 22:59 06:59 14:59 Intake Total 118 Balance 118 Intake: Oral 118 Other: Voiding Method Toilet Toilet # Voids 1 4 Results CBC & Chem 7: 05/30/24 04:53 05/30/24 04:53 Labs: Abnormal Lab Results - Last 24 Hours (Table) 05/30/24 05/30/24 05/30/24 Range/Units 04:53 04:53 19:57 ESR 77 H (0-20) mm/Hr POC Glucose (mg/dL) 281 H (70-110) mg/dL C-Reactive Protein 6.60 H (0.00-0.80) mg/dL 05/31/24 05/31/24 Range/Units 05:42 12:13 ESR (0-20) mm/Hr POC Glucose (mg/dL) 177 H 214 H (70-110) mg/dL C-Reactive Protein (0.00-0.80) mg/dL Thrombosis Risk Factor Assmnt - Choose All That Apply Each Factor Represents 1 point: Abnormal pulmonary function (COPD), Obesity (BMI >25) Each Risk Factor Represents 2 Points: Age 61-74 years Thrombosis Risk Factor Assessment Total Risk Factor Score: 4 Thrombosis Risk Factor Assessment Level: Moderate Risk
--- NOTE | 2024-05-31 13:25 | P.DS ---
Providers Date of admission: 05/30/24 07:05 Attending physician: Zoya Hayden Consults: 05/30/24 07:05 Consult Physician Routine Consulting Provider: Timi Reddy Consult Reason/Comments: Chest pain Do you want consulting provider notified?: Yes, Notify in am Primary care physician: Pina Pedraza MD Hospital Course: Patient is a 71-year-old male came with complaints of chest pain which is pleuritic in nature increases with deep breathing. Patient had a VQ scan which was negative. Patient denied any significant shortness of breath patient is found to be COVID-positive with the COVID-19 patient had a chest x-ray which did not show any pneumonia. Patient is overall clinically doing well but still has some chest pain visit was eval by cardiology rule out acute coronary syndromes that cleared him for discharge. Patient also has a Doppler of bilateral lower extremities negative for venous thromboembolism patient is also in acute renal failure with creatinine going up to 2.1 baseline creatinine appears to be 1.4 patient's creatinine is consistently going up for last few months and patient is on multiple medications that can affect the kidney which includes chlorthalidone , losartan, Bactrim. Patient was started on Bactrim because of her cyst in the back. This is does not appear to be infected because of which I will discontinue Bactrim. Patient is also on losartan unknown whether patient has a proteinuria. REVIEW OF SYSTEMS: All other systems are negative except those mentioned in the HPI PHYSICAL EXAMINATION: GENERAL: The patient is alert and oriented x3, not in any acute distress. Well developed, well nourished. HEENT: Pupils are round and equally reacting to light. EOMI. No scleral icterus. No conjunctival pallor. Normocephalic, atraumatic. No pharyngeal erythema. No thyromegaly. CARDIOVASCULAR: S1 and S2 present. No murmurs, rubs, or gallops. PULMONARY: Chest is clear to auscultation, no wheezing or crackles. ABDOMEN: Soft, nontender, nondistended, normoactive bowel sounds. No palpable organomegaly. MUSCULOSKELETAL: No joint swelling or deformity. EXTREMITIES: No cyanosis, clubbing, or pedal edema. NEUROLOGICAL: Gross neurological examination did not reveal any focal deficits. SKIN: No rashes. Assessment and plan -Chest pain rule out acute coronary syndromes cardiology evaluate the patient they cleared him for discharge. Chest pain appears to be musculoskeletal in nature as to take as needed Tylenol -Ruled out pulmonary embolism and pneumonia. -Acute renal failure on chronic kidney disease stage IIIb: Acute renal failure may be related to medications Bactrim chlorthalidone and losartan were discontinued. If patient has proteinuria can consider restarting on losartan once his kidney function stabilizes although chlorthalidone may not be beneficial considering his poor renal function. Will repeat basic metabolic profile in about 3 to 4 days by the time his kidney function is expected to improve. -Type 2 diabetes mellitus uncontrolled elevated blood sugars as he did not receive his insulin patient will be resumed on insulin and will also continue with his Mounjaro. -Infection without any hypoxemia -CVA/TIA in the past -Leukocytosis secondary to COVID-19 Patient will be discharged today Today actually does a problem he can protect renal Plan - Discharge Summary New Discharge Prescriptions: New amLODIPine [Norvasc] 5 mg PO DAILY #30 tab Discontinued Losartan [Cozaar] 50 mg PO DAILY #30 tab Chlorthalidone 25 mg PO DAILY #30 tablet Sulfamethox-Tmp 800-160Mg [Bactrim DS 800-160 mg] 1 tab PO Q12HR No Action Insulin Aspart [NovoLOG Flexpen] See Protocol SQ TID-W/MEALS Insulin Glargine,Hum.rec.anlog [Toujeo Max Solostar] 60 - 100 units SQ DAILY Atorvastatin [Lipitor] 80 mg PO HS #30 tab Aspirin EC [Ecotrin] 325 mg PO DAILY Oxybutynin Chloride [oxyBUTYnin chloride ER] 10 mg PO BID Omeprazole [PriLOSEC] 40 mg PO HS Tirzepatide [Mounjaro] 10 mg SQ WE Discharge Medication List Insulin Aspart [NovoLOG Flexpen] See Protocol SQ TID-W/MEALS 07/20/23 [History] Insulin Glargine,Hum.rec.anlog [Toujeo Max Solostar] 60 - 100 units SQ DAILY 07/20/23 [History] Oxybutynin Chloride [oxyBUTYnin chloride ER] 10 mg PO BID 02/09/24 [History] Atorvastatin [Lipitor] 80 mg PO HS #30 tab 02/11/24 [Rx] Aspirin EC [Ecotrin] 325 mg PO DAILY 05/30/24 [History] Omeprazole [PriLOSEC] 40 mg PO HS 05/30/24 [History] Tirzepatide [Mounjaro] 10 mg SQ WE 05/30/24 [History] amLODIPine [Norvasc] 5 mg PO DAILY #30 tab 05/31/24 [Rx] Follow up Appointment(s)/Referral(s): Pina Pedraza MD [Primary Care Provider] - 3 Days Discharge Disposition: HOME SELF-CARE
== END 2024-05-31 14:27 | disposition home or self-care (01) ==
LOC: EC 03:31 → 6NMEDSUR 07:05
PROVIDERS: ADMIT Hospitalist; ATTEND Hospitalist
DX: U07.1 COVID-19 (principal); N17.9 Acute kidney failure, unspecified; E11.22 Type 2 diabetes mellitus with diabetic chronic kidney disease; E11.65 Type 2 diabetes mellitus with hyperglycemia; I12.9 Hypertensive chronic kidney disease with stage 1 through stage 4 chronic kidney disease, or unspecified chronic kidney disease; N18.32 Chronic kidney disease, stage 3b; J44.9 Chronic obstructive pulmonary disease, unspecified; Z79.82 Long term (current) use of aspirin; Z79.899 Other long term (current) drug therapy; Z86.73 Personal history of transient ischemic attack (TIA), and cerebral infarction without residual deficits; Z87.891 Personal history of nicotine dependence; Z88.8 Allergy status to other drugs, medicaments and biological substances; Z79.4 Long term (current) use of insulin; Z79.85 Long-term (current) use of injectable non-insulin antidiabetic drugs
CPT/HCPCS: 96372 ×3; 96376; 96374; 96375; 99285; 36415; 93005; 85379; 83880; 80053; 85652; 83690; 83735; 84484; 85025; 85610; 85730; 86140; 87636; 71046; 93970; 78580; G0378 ×2; A9540; J2270; J1644 ×2; J2405